=== PATIENT | male | born 1960 | race Caucasian/White ===

== ENCOUNTER → 2017-02-23 | Outpatient (CLI) | payer MEDICAID ==
[~2017-02-23] VITALS: Ht 175.3 cm; Wt 97.1 kg
[~2017-02-23] MED LIST: ADENOSINE 82 MG in GIVE UN-DILUTED 0 ML IV ONE; DIPYRIDAMOLE (5MG/ML) 10 ML VIAL IV ONE
== END | disposition home or self-care (01) ==
LOC: Rad HDHVI 09:53
PROVIDERS: ATTEND Internal Medicine Cardiovascular Disease
DX: I42.9 Cardiomyopathy, unspecified (principal); I10 Essential (primary) hypertension; Z82.49 Family history of ischemic heart disease and other diseases of the circulatory system
CPT/HCPCS: 78452; 93005; 96374; 96375; A9500; J1245

== ENCOUNTER → 2017-07-01 | Outpatient (CLI) | payer MEDICAID ==
[~2017-07-01] MED LIST changes: +ACET30TA15 PO; -ADENOSINE 82 MG in GIVE UN-DILUTED 0 ML IV ONE; +ALLO300T2 PO; +ASPI81TA27 PO; +ATEN-60 PO; +BECL80AE9 IN; -DIPYRIDAMOLE (5MG/ML) 10 ML VIAL IV ONE; +FURO40TA4 PO; +METF-370 PO; +POTA10TA51 PO; +ZOLP10TA6 PO
[2017-07-01 10:00] VITALS: BP 112/65
[2017-07-01 10:50] VITALS: BP 123/77
[2017-07-01 12:41] LABS: INR 1.04 (0.9-1.15); Partial Thromboplastin Time 25.5 sec (22.64-33.71); Prothrombin Time 11.3 sec (9.37-12.3)
[2017-07-01 12:54] LABS: Potassium 3.7 mmol/L (3.5-5.1)
[2017-07-01 13:08] LABS: Basophils # (auto) 0.1 uL; Basophils % (auto) 0.6 % (0.0-2.0); CONDITION Y; Eosinophils # (auto) 0.2 uL; Eosinophils % (auto) 1.7 % (0.0-7.0); Hematocrit 49.7 % (41.0-53.0); Hemoglobin 16.8 g/dL (13.5-17.5); Lymphocytes # (auto) 2.4 uL; Lymphocytes % (auto) 26.3 % (10.0-50.0); Mean Corpuscular Hgb Conc. 33.8 g/dL (32.0-36.0); Mean Corpuscular Volume 91.8 fL (80.0-100.0); Mean Platelet Volume 8.9 fL (7.4-10.4); Monocytes # (auto) 0.8 uL; Monocytes % (auto) 8.5 % (0.0-12.0); Neutrophils # (auto) 5.7 uL; Neutrophils % (auto) 62.9 % (37.0-80.0); Platelet Count (auto) 264 10^3/uL (140-450); Red Cell Distribution Width 14.4 % (11.6-16.0); White Blood Cell 9.1 10^3/uL (4.4-10.8)
[2017-07-01 13:11] LABS: BUN/Creatinine Ratio 10.8
== END | disposition home or self-care (01) ==
LOC: CHF HDHVI 10:14
PROVIDERS: ATTEND Internal Medicine Cardiovascular Disease
DX: Z01.818 Encounter for other preprocedural examination (principal); I10 Essential (primary) hypertension; D64.9 Anemia, unspecified; I42.9 Cardiomyopathy, unspecified; R42 Dizziness and giddiness; R79.1 Abnormal coagulation profile
CPT/HCPCS: 36415; 80048; 85025; 85610; 85730; G0463

== ENCOUNTER → 2017-07-02 | Day surgery (SDC) | payer MEDICAID ==
[~2017-07-02] VITALS: Ht 175.3 cm; Wt 98.9 kg
[~2017-07-02] MED LIST changes: +ANGIOMAX 250 MG VIAL IV ONE; +IOHEXOL 350 MG/ML 100ML IJ ONE; +LIDOCAINE 2%HCL (LOCAL ANESTH.) INJ 20ML MDV ONE; +MIDAZOLAM HCL 1MG/1ML-2 ML VIAL ONE; +SODIUM CHL 0.9% 0 ML ONE; +fentaNYL CITRATE 100 MCG/2 ML VL ONE
== END | disposition home or self-care (01) ==
LOC: CATH 12:08
PROVIDERS: ATTEND Internal Medicine Cardiovascular Disease
DX: R07.9 Chest pain, unspecified (principal); E11.9 Type 2 diabetes mellitus without complications; J44.9 Chronic obstructive pulmonary disease, unspecified
CPT/HCPCS: 93458; C1760; C1894; J1644; J3010; J7030; Q9967; 99152; 99153; J2250

== ENCOUNTER 2017-07-03 21:36 | Emergency (ER) | payer MEDICAID ==
[~2017-07-03] VITALS: Ht 175.3 cm; Wt 98.9 kg
[~2017-07-03 21:36] MED LIST changes: -ANGIOMAX 250 MG VIAL IV ONE; -IOHEXOL 350 MG/ML 100ML IJ ONE; -LIDOCAINE 2%HCL (LOCAL ANESTH.) INJ 20ML MDV ONE; -MIDAZOLAM HCL 1MG/1ML-2 ML VIAL ONE; -SODIUM CHL 0.9% 0 ML ONE; -fentaNYL CITRATE 100 MCG/2 ML VL ONE
[2017-07-03 21:52] VITALS: BP 149/95
== END 2017-07-03 22:53 | disposition home or self-care (01) ==
LOC: ER 21:36
DX: S70.11XA Contusion of right thigh, initial encounter (principal); I11.0 Hypertensive heart disease with heart failure; I50.9 Heart failure, unspecified; Z79.82 Long term (current) use of aspirin; Z79.899 Other long term (current) drug therapy; X58.XXXA Exposure to other specified factors, initial encounter; Y93.89 Activity, other specified; Y92.89 Other specified places as the place of occurrence of the external cause; Y99.8 Other external cause status

== ENCOUNTER → 2017-07-10 | Outpatient (CLI) | payer MEDICAID ==
[2017-07-10 11:00] VITALS: BP 125/84
[2017-07-10 13:45] VITALS: BP 141/94
== END | disposition home or self-care (01) ==
LOC: CHF HDHVI 11:00
PROVIDERS: ATTEND Internal Medicine Cardiovascular Disease
DX: I11.0 Hypertensive heart disease with heart failure (principal)
CPT/HCPCS: 94620; G0463

== ENCOUNTER → 2017-07-13 | Outpatient (CLI) | payer MEDICAID ==
[~2017-07-13] MED LIST changes: +ALBUTEROL SULF 2.5 MG/0.5ML(0.5%) NEB SOLN ONE
== END | disposition home or self-care (01) ==
LOC: RT 08:50
PROVIDERS: ATTEND Internal Medicine Cardiovascular Disease
DX: R06.02 Shortness of breath (principal); I11.0 Hypertensive heart disease with heart failure; I50.9 Heart failure, unspecified
CPT/HCPCS: 94060

== ENCOUNTER → 2018-05-26 | Outpatient (CLI) | payer MEDICAID ==
[~2018-05-26] MED LIST changes: -ALBUTEROL SULF 2.5 MG/0.5ML(0.5%) NEB SOLN ONE
== END | disposition home or self-care (01) ==
LOC: Rad HDHVI 10:44
PROVIDERS: ATTEND Internal Medicine
DX: I07.1 Rheumatic tricuspid insufficiency (principal); I27.20 Pulmonary hypertension, unspecified; E78.5 Hyperlipidemia, unspecified; E11.9 Type 2 diabetes mellitus without complications; I11.0 Hypertensive heart disease with heart failure; I50.9 Heart failure, unspecified
CPT/HCPCS: 93306

== ENCOUNTER → 2018-06-11 | Outpatient (CLI) | payer MEDICAID ==
[2018-06-11 08:50] VITALS: BP 144/91
[2018-06-11 10:00] VITALS: BP 135/89
== END | disposition home or self-care (01) ==
LOC: CHF HDHVI 08:41
PROVIDERS: ATTEND Internal Medicine Cardiovascular Disease
DX: I27.21 Secondary pulmonary arterial hypertension (principal); I11.0 Hypertensive heart disease with heart failure; I50.9 Heart failure, unspecified; Z79.899 Other long term (current) drug therapy
CPT/HCPCS: 93701; 94618; G0463

== ENCOUNTER → 2018-08-09 | Outpatient (CLI) | payer MEDICAID ==
[~2018-08-09] MED LIST changes: +AMIT25TA9 PO; +ANGIOMAX 250 MG VIAL IV ONE; +ATOR40TA52 PO; +BENA40TA7 PO; +IOHEXOL 350 MG/ML 100ML IJ ONE; +LIDOCAINE 2%HCL (LOCAL ANESTH.) INJ 10ml MDV ONE; +METO-158 PO; +MIDAZOLAM HCL 1MG/1ML-2 ML VIAL ONE; +SILD20TA12 OR; +SODIUM CHL 0.9% 0 ML ONE; +fentaNYL CITRATE 100 MCG/2 ML VL ONE
[2018-08-09 08:25] VITALS: BP_SYST 149; BP_SYST 154; BP_DIAS 103; BP_DIAS 90
[2018-08-09 12:38] LABS: INR 1.18 (0.9-1.15); Partial Thromboplastin Time 31.5 sec (23.78-33.04); Prothrombin Time 12.5 sec (9.27-12.13)
[2018-08-09 12:39] LABS: Potassium 4.2 mmol/L (3.5-5.1)
[2018-08-09 12:41] LABS: Basophils # (auto) 0 uL; Basophils % (auto) 0.6 % (0.0-2.0); Eosinophils # (auto) 0.2 uL; Eosinophils % (auto) 2.9 % (0.0-7.0); Lymphocytes # (auto) 1.8 uL; Mean Corpuscular Hemoglobin 32.6 pg (28.0-32.0); Mean Corpuscular Volume 95.9 fL (80.0-100.0); Monocytes # (auto) 0.6 uL; Monocytes % (auto) 8.8 % (0.0-12.0); Neutrophils # (auto) 4.3 uL; Neutrophils % (auto) 61.7 % (37.0-80.0); Nucleated Red Blood Cells % 0.6 %; Platelet Count (auto) 146 10^3/uL (140-450); Red Cell Distribution Width 14.7 % (11.8-14.3); White Blood Cell 6.9 10^3/uL (4.4-10.8)
[2018-08-09 12:42] LABS: BUN/Creatinine Ratio 16.2
== END | disposition home or self-care (01) ==
LOC: Rad HDHVI 07:59
PROVIDERS: ATTEND Internal Medicine
DX: Z01.818 Encounter for other preprocedural examination (principal); D64.9 Anemia, unspecified; R79.1 Abnormal coagulation profile; I10 Essential (primary) hypertension; E11.9 Type 2 diabetes mellitus without complications; I27.21 Secondary pulmonary arterial hypertension; I42.9 Cardiomyopathy, unspecified; R94.31 Abnormal electrocardiogram [ECG] [EKG]
CPT/HCPCS: 36415; 71046; 80048; 85025; 85610; 85730; 93005; G0463

== ENCOUNTER 2018-08-11 07:53 | Day surgery (SDC) | payer MEDICAID ==
[~2018-08-11] VITALS: Ht 175.3 cm; Wt 97.5 kg
[~2018-08-11 07:53] MED LIST changes: -ACET30TA15 PO; -ANGIOMAX 250 MG VIAL IV ONE; -ATEN-60 PO; -IOHEXOL 350 MG/ML 100ML IJ ONE; -LIDOCAINE 2%HCL (LOCAL ANESTH.) INJ 10ml MDV ONE; -MIDAZOLAM HCL 1MG/1ML-2 ML VIAL ONE; -SODIUM CHL 0.9% 0 ML ONE; -ZOLP10TA6 PO; -fentaNYL CITRATE 100 MCG/2 ML VL ONE
== END 2018-08-11 12:45 | disposition home or self-care (01) ==
LOC: CATH 07:53
PROVIDERS: ATTEND Internal Medicine
DX: I27.20 Pulmonary hypertension, unspecified (principal); J44.9 Chronic obstructive pulmonary disease, unspecified; Z87.891 Personal history of nicotine dependence; Z79.82 Long term (current) use of aspirin; Z79.899 Other long term (current) drug therapy; E78.5 Hyperlipidemia, unspecified; I10 Essential (primary) hypertension; E11.9 Type 2 diabetes mellitus without complications
CPT/HCPCS: 93460; C1760; C1769; C1894; J7030; 36600; 82805; 99152; 99153; A6257; C1751

== ENCOUNTER → 2018-08-17 | Outpatient (CLI) | payer MEDICAID | END | disposition home or self-care (01) | LOC: XY 08:19 | PROVIDERS: ATTEND Internal Medicine | DX: J98.8 Other specified respiratory disorders (principal) | CPT/HCPCS: 78582; A9540; A9558 ==

== ENCOUNTER → 2018-08-17 | Outpatient (CLI) | payer MEDICAID ==
[2018-08-17 11:25] VITALS: BP 132/85
[2018-08-17 12:40] VITALS: BP 127/87
== END | disposition home or self-care (01) ==
LOC: CHF HDHVI 11:18
PROVIDERS: ATTEND Internal Medicine
DX: I27.21 Secondary pulmonary arterial hypertension (principal)
CPT/HCPCS: 93701; 94618; G0463

== ENCOUNTER → 2018-08-31 | Outpatient (CLI) | payer MEDICAID ==
[2018-08-31 11:30] VITALS: BP 120/77
== END | disposition home or self-care (01) ==
LOC: CHF HDHVI 10:50
PROVIDERS: ATTEND Internal Medicine Cardiovascular Disease
DX: I27.21 Secondary pulmonary arterial hypertension (principal)
CPT/HCPCS: G0463

== ENCOUNTER → 2018-09-08 | Outpatient (CLI) | payer MEDICAID ==
[~2018-09-08] MED LIST changes: +SODIUM CHLORIDE 0.9% 1,000 ML IV ONE
[2018-09-08 10:12] VITALS: BP 64/50
[2018-09-08 11:43] VITALS: BP 91/56
[2018-09-08 12:38] LABS: Basophils # (auto) 0.1 uL; Basophils % (auto) 0.8 % (0.0-2.0); Eosinophils # (auto) 0.1 uL; Eosinophils % (auto) 1.9 % (0.0-7.0); Hematocrit 50.2 % (41.0-53.0); Hemoglobin 17.1 g/dL (13.5-17.5); Lymphocytes # (auto) 2.1 uL; Lymphocytes % (auto) 30.9 % (10.0-50.0); Mean Corpuscular Volume 94.2 fL (80.0-100.0); Monocytes # (auto) 0.7 uL; Monocytes % (auto) 9.9 % (0.0-12.0); Neutrophils # (auto) 3.9 uL; Neutrophils % (auto) 56.5 % (37.0-80.0); Nucleated Red Blood Cells % 0.5 %; Platelet Count (auto) 158 10^3/uL (140-450); Red Blood Cells 5.33 10^6/uL (4.5-5.90); Red Cell Distribution Width 14.6 % (11.8-14.3); White Blood Cell 6.8 10^3/uL (4.4-10.8)
[2018-09-08 12:47] LABS: BUN/Creatinine Ratio 15.5; Calcium 8.9 mg/dL (8.5-10.1); Magnesium 2.3 mg/dL (1.6-2.6); Potassium 3.8 mmol/L (3.5-5.1)
== END | disposition home or self-care (01) ==
LOC: CHF HDHVI 10:02
PROVIDERS: ATTEND Internal Medicine Cardiovascular Disease
DX: I27.21 Secondary pulmonary arterial hypertension (principal); I95.9 Hypotension, unspecified; I11.0 Hypertensive heart disease with heart failure; I50.9 Heart failure, unspecified; E11.9 Type 2 diabetes mellitus without complications; J44.9 Chronic obstructive pulmonary disease, unspecified; I42.9 Cardiomyopathy, unspecified; E78.5 Hyperlipidemia, unspecified; D64.9 Anemia, unspecified; E83.40 Disorders of magnesium metabolism, unspecified; I07.1 Rheumatic tricuspid insufficiency; Z79.82 Long term (current) use of aspirin; Z79.899 Other long term (current) drug therapy; Z87.891 Personal history of nicotine dependence
CPT/HCPCS: 36415; 80048; 82962; 83735; 85025; 96360; G0463; J7030

== ENCOUNTER → 2018-09-15 | Outpatient (CLI) | payer MEDICAID ==
[~2018-09-15] MED LIST changes: -SODIUM CHLORIDE 0.9% 1,000 ML IV ONE
[2018-09-15 11:30] VITALS: BP_SYST 123; BP_SYST 96; BP_DIAS 68; BP_DIAS 81
[2018-09-15 12:35] VITALS: BP 96/68
== END | disposition home or self-care (01) ==
LOC: CHF HDHVI 11:27
PROVIDERS: ATTEND Internal Medicine Cardiovascular Disease
DX: I27.20 Pulmonary hypertension, unspecified (principal); E11.9 Type 2 diabetes mellitus without complications
CPT/HCPCS: 82962; 93701; G0463

== ENCOUNTER → 2018-10-14 | Outpatient (CLI) | payer MEDICAID ==
[~2018-10-14] MED LIST changes: +CYANOCOBALAMIN (B-12) 1000 MCG/1 ML VIAL IM ONE; +CYANOCOBALAMIN (B-12) 1000 MCG/1 ML VIAL ONE; +FUROSEMIDE 100 MG/10ML VIAL IV ONE; +FUROSEMIDE INJECTION 10 ML ONE; +POTASSIUM CHL 10 Meq TABLET PO ONE; +POTASSIUM CHL 20 Meq TABLET PO ONE; +SODIUM CHLORIDE 0.9% 1,000 ML IV SCH
--- NOTE | 2018-10-14 12:19 | NUR ---
CHF PT TO CHF CLINIC FOR PAH REEVAL. WGHT GAIN 8 LBS, INCREASED SOB. OMN ADEMPAS 0.5 MG TID X 1 MONTH.
--- NOTE | 2018-10-14 13:05 | NUR ---
CHF Clinic Provider Clinic Provider DR. BEST, pt with new orders received and carried out. DRAW RBS. CARDIODYNAMICS, Lasix gtt started at {60}mg/hr X 1 HR, THAN DECREASE TO 30MG/HR , POTASSIUM 30MEQ PO VIT B 12 INJECTION 1000MCG IM per MD order. IV insertion IV access obtained, via clean sterile technique by inserting 22 gauge catheter at after attempt(s). IV secured properly. No trauma to site. Patient tolerated procedure well.
[2018-10-14 15:15] VITALS: BP 115/69
--- NOTE | 2018-10-14 15:15 | NUR ---
CHF IV COMPLETE 1513. IV removal IV DC'd with sterile technique, catheter fully intact. Pressure dressing applied to site. Patient tolerated procedure well. VIT B 12 1000MCG R DELTOID. Discharged with aftercare instructions per MD. NOTE:
== END | disposition home or self-care (01) ==
LOC: CHF HDHVI 12:18
PROVIDERS: ATTEND Internal Medicine Cardiovascular Disease
DX: I11.0 Hypertensive heart disease with heart failure (principal); I50.9 Heart failure, unspecified; I27.21 Secondary pulmonary arterial hypertension; J44.9 Chronic obstructive pulmonary disease, unspecified; E11.9 Type 2 diabetes mellitus without complications; I42.9 Cardiomyopathy, unspecified; Z79.82 Long term (current) use of aspirin; Z79.899 Other long term (current) drug therapy; Z87.891 Personal history of nicotine dependence
CPT/HCPCS: 82962; 93701; 96365; 96366; 96372; G0463; J1940; J3420; J7030

== ENCOUNTER → 2018-10-18 | Outpatient (CLI) | payer MEDICAID ==
[~2018-10-18] MED LIST changes: -CYANOCOBALAMIN (B-12) 1000 MCG/1 ML VIAL IM ONE; -CYANOCOBALAMIN (B-12) 1000 MCG/1 ML VIAL ONE; +KETOROLAC TROMETH 60MG/2ML VIAL IM ONE; -POTASSIUM CHL 20 Meq TABLET PO ONE; +POTASSIUM CHL 20 Meq TABLET PO SCH
--- NOTE | 2018-10-18 09:00 | NUR ---
CHF PT TO CHF CLINIC C/O FALL AT HOME 3 DAYS AGO PAIN TO R KNEE AND L FOOT 05/04. MD BEST ORDERED LASIX DRIP AT 35 ML/HR AND TORADOL 60MG IM FOR PAIN
--- NOTE | 2018-10-18 09:31 | NUR ---
CHF IV insertion IV access obtained, via clean sterile technique by inserting 22 gauge catheter at after attempt(s). IV secured properly. No trauma to site. Patient tolerated procedure well. LASIX DRIP STARTED AT 35ML/HR
[2018-10-18 09:55] VITALS: BP 101/64
[2018-10-18 10:00] VITALS: BP 100/71
[2018-10-18 10:30] VITALS: BP 108/72
[2018-10-18 11:00] VITALS: BP 111/79
[2018-10-18 11:30] VITALS: BP 128/84
--- NOTE | 2018-10-18 12:07 | NUR ---
CHF IM TORADOL 60MG R GLUTE FOR PAIN. PT TOLERATED WELL.
[2018-10-18 12:55] VITALS: BP 118/76
--- NOTE | 2018-10-18 12:55 | NUR ---
CHF IV THERAPY COMPLETE. IV removal IV DC'd with sterile technique, catheter fully intact. Pressure dressing applied to site. Patient tolerated procedure well. Discharged with aftercare instructions per MD. NOTE:
== END | disposition home or self-care (01) ==
LOC: CHF HDHVI 08:53
PROVIDERS: ATTEND Internal Medicine Cardiovascular Disease
DX: I11.0 Hypertensive heart disease with heart failure (principal); I50.22 Chronic systolic (congestive) heart failure; I25.10 Atherosclerotic heart disease of native coronary artery without angina pectoris; M25.561 Pain in right knee; M79.672 Pain in left foot; E11.9 Type 2 diabetes mellitus without complications; J44.9 Chronic obstructive pulmonary disease, unspecified; I42.9 Cardiomyopathy, unspecified; I27.21 Secondary pulmonary arterial hypertension; E78.5 Hyperlipidemia, unspecified; I07.1 Rheumatic tricuspid insufficiency; Z79.82 Long term (current) use of aspirin; Z79.899 Other long term (current) drug therapy; Z87.891 Personal history of nicotine dependence; W19.XXXA Unspecified fall, initial encounter; Y93.89 Activity, other specified; Y92.009 Unspecified place in unspecified non-institutional (private) residence as the place of occurrence of the external cause; Y99.8 Other external cause status
CPT/HCPCS: 96365; 96366; 96372; G0463; J1885; J1940

== ENCOUNTER → 2018-10-28 | Outpatient (CLI) | payer MEDICAID ==
[~2018-10-28] MED LIST changes: -FUROSEMIDE 100 MG/10ML VIAL IV ONE; -KETOROLAC TROMETH 60MG/2ML VIAL IM ONE; -POTASSIUM CHL 20 Meq TABLET PO SCH; -SODIUM CHLORIDE 0.9% 1,000 ML IV SCH
[2018-10-28 11:30] VITALS: BP 101/65
[2018-10-28 12:30] VITALS: BP 114/76
[2018-10-28 13:00] VITALS: BP 110/71
[2018-10-28 13:30] VITALS: BP 116/73
[2018-10-28 14:00] VITALS: BP 121/79
[2018-10-28 15:55] LABS: Basophils # (auto) 0 uL; Basophils % (auto) 0.7 % (0.0-2.0); Eosinophils # (auto) 0.1 uL; Eosinophils % (auto) 1.9 % (0.0-7.0); Hematocrit 47.1 % (41.0-53.0); Hemoglobin 15.4 g/dL (13.5-17.5); Lymphocytes # (auto) 1.6 uL; Lymphocytes % (auto) 24.7 % (10.0-50.0); Mean Corpuscular Hemoglobin 31.6 pg (28.0-32.0); Mean Corpuscular Hgb Conc. 32.6 g/dL (32.0-36.0); Mean Corpuscular Volume 96.8 fL (80.0-100.0); Monocytes # (auto) 0.7 uL; Monocytes % (auto) 9.9 % (0.0-12.0); Neutrophils # (auto) 4.2 uL; Neutrophils % (auto) 62.8 % (37.0-80.0); Nucleated Red Blood Cells % 0.3 %; Platelet Count (auto) 159 10^3/uL (140-450); Red Blood Cells 4.87 10^6/uL (4.5-5.90); Red Cell Distribution Width 15.7 % (11.8-14.3); White Blood Cell 6.6 10^3/uL (4.4-10.8)
[2018-10-28 16:09] LABS: Albumin 3.6 g/dL (3.4-5.0); Calcium 8.5 mg/dL (8.5-10.1); Magnesium 2.4 mg/dL (1.6-2.6); Potassium 4.3 mmol/L (3.5-5.1)
[2018-10-28 16:12] LABS: Bilirubin, Total 1.5 mg/dL (0.2-1.0); Total Protein 7.4 g/dL (6.4-8.2)
== END | disposition home or self-care (01) ==
LOC: CHF HDHVI 10:18
PROVIDERS: ATTEND Internal Medicine Cardiovascular Disease
DX: I11.0 Hypertensive heart disease with heart failure (principal); I50.23 Acute on chronic systolic (congestive) heart failure; E83.40 Disorders of magnesium metabolism, unspecified; D64.9 Anemia, unspecified
CPT/HCPCS: 36415; 80053; 83735; 83880; 85025; J1940

== ENCOUNTER → 2018-11-02 | Outpatient (CLI) | payer MEDICAID ==
[~2018-11-02] MED LIST changes: +FUROSEMIDE 100 MG/10ML VIAL IV ONE; +POTASSIUM CHL 20 Meq TABLET PO ONE; +SODIUM CHLORIDE 0.9% 1,000 ML IV SCH
--- NOTE | 2018-11-02 11:38 | NUR ---
CHF PT TO CHF CLINIC FOR MD CLEMONS DIURETIC THERAPY.
[2018-11-02 12:15] VITALS: BP 113/76
--- NOTE | 2018-11-02 12:15 | NUR ---
CHF IV insertion IV access obtained, via clean sterile technique by inserting 22 gauge catheter at after attempt(s). IV secured properly. No trauma to site. Patient tolerated procedure well. Clinic Provider Clinic Provider DR. BEST, pt with new orders received and carried out. Lasix gtt started at {30}mg/hr per MD order.
--- NOTE | 2018-11-02 12:20 | NUR ---
CHF POTASSIUM CHLORIDE 30 MEQ PO ADMINISTERED
[2018-11-02 12:50] VITALS: BP 125/79
[2018-11-02 13:15] VITALS: BP 110/78
[2018-11-02 13:45] VITALS: BP 118/79
[2018-11-02 14:15] VITALS: BP 108/79
[2018-11-02 15:20] VITALS: BP 115/82
--- NOTE | 2018-11-02 15:20 | NUR ---
CHF IV LASIX COMPLETE. IV removal IV DC'd with sterile technique, catheter fully intact. Pressure dressing applied to site. Patient tolerated procedure well. Discharged with aftercare instructions per MD. NOTE:
== END | disposition home or self-care (01) ==
LOC: CHF HDHVI 11:38
PROVIDERS: ATTEND Internal Medicine Cardiovascular Disease
DX: I11.0 Hypertensive heart disease with heart failure (principal); I50.22 Chronic systolic (congestive) heart failure; J44.9 Chronic obstructive pulmonary disease, unspecified; I25.10 Atherosclerotic heart disease of native coronary artery without angina pectoris; E83.40 Disorders of magnesium metabolism, unspecified; I27.21 Secondary pulmonary arterial hypertension; E78.5 Hyperlipidemia, unspecified; E11.9 Type 2 diabetes mellitus without complications; I42.9 Cardiomyopathy, unspecified; Z87.891 Personal history of nicotine dependence; Z79.899 Other long term (current) drug therapy; Z79.82 Long term (current) use of aspirin; Z99.81 Dependence on supplemental oxygen
CPT/HCPCS: 96365; 96366; G0463; J1940

== ENCOUNTER → 2018-11-09 | Outpatient (CLI) | payer MEDICAID ==
[~2018-11-09] MED LIST changes: -FUROSEMIDE 100 MG/10ML VIAL IV ONE; +FUROSEMIDE INJECTION 100 MG in SODIUM CHL 0.9% 100 ML IV SCH; -POTASSIUM CHL 10 Meq TABLET PO ONE; -SODIUM CHLORIDE 0.9% 1,000 ML IV SCH
--- NOTE | 2018-11-09 10:20 | NUR ---
IN TO CLINIC FOR SCHEDULED INFUSION. OXYGEN FROM HOME IN USE AT 2 LPM. NOTED TO HAVE INCREASE IN WEIGHT.
--- NOTE | 2018-11-09 10:30 | NUR ---
IV PLACED TO LEFT FOREARM 22 GAUGE BY CECIL SAPP. START LASIX GTT X 3 HOURS.
[2018-11-09 11:00] VITALS: BP 112/77
[2018-11-09 11:30] VITALS: BP 128/85
[2018-11-09 11:39] LABS: Basophils # (auto) 0.1 uL; Basophils % (auto) 0.8 % (0.0-2.0); Eosinophils # (auto) 0.1 uL; Eosinophils % (auto) 1.6 % (0.0-7.0); Hematocrit 46.2 % (41.0-53.0); Hemoglobin 15.1 g/dL (13.5-17.5); Lymphocytes # (auto) 1.2 uL; Lymphocytes % (auto) 18.4 % (10.0-50.0); Mean Corpuscular Hemoglobin 31.5 pg (28.0-32.0); Mean Corpuscular Hgb Conc. 32.8 g/dL (32.0-36.0); Monocytes # (auto) 0.5 uL; Monocytes % (auto) 8.4 % (0.0-12.0); Neutrophils # (auto) 4.6 uL; Neutrophils % (auto) 70.8 % (37.0-80.0); Platelet Count (auto) 156 10^3/uL (140-450); Red Blood Cells 4.81 10^6/uL (4.5-5.90); Red Cell Distribution Width 15.3 % (11.8-14.3); White Blood Cell 6.5 10^3/uL (4.4-10.8)
[2018-11-09 11:54] LABS: Anion Gap 5 (5-15); Blood Urea Nitrogen 20 mg/dL (7-18); Carbon Dioxide 25 mmol/L (21-32); Chloride 114 mmol/L (98-107); Glucose 83 mg/dL (74-106); Potassium 3.8 mmol/L (3.5-5.1); Sodium 144 mmol/L (136-145)
[2018-11-09 11:56] LABS: BUN/Creatinine Ratio 17.7; Calcium 8.4 mg/dL (8.5-10.1); GFR African American > 60 mL/min; GFR Non-African American > 60 mL/min
[2018-11-09 12:30] VITALS: BP 120/85
[2018-11-09 13:00] VITALS: BP 125/83
[2018-11-09 13:30] VITALS: BP 121/83
--- NOTE | 2018-11-09 14:00 | NUR ---
Discharge Instructions See e-MAR for any mediations given with this visit. Patient education given on disease process. Patient verbalized understanding. Previous labs reviewed. Patient discharged in stable condition with after care instructions and follow up appointment FOR 11/11/18 MEDICATION ADMINISTRATION LASIX DRIP AT 30 MG /HR X 3 HOURS START AT 1030/STOP AT 1355 POTASSIUM 20 MEQ PO AT 1030
[2018-11-09 14:01] VITALS: BP 120/80
== END | disposition home or self-care (01) ==
LOC: CHF HDHVI 10:26
PROVIDERS: ATTEND Internal Medicine Cardiovascular Disease
DX: I27.21 Secondary pulmonary arterial hypertension (principal); I11.0 Hypertensive heart disease with heart failure; I50.22 Chronic systolic (congestive) heart failure; D64.9 Anemia, unspecified; E55.9 Vitamin D deficiency, unspecified; I25.10 Atherosclerotic heart disease of native coronary artery without angina pectoris; I42.9 Cardiomyopathy, unspecified; J44.9 Chronic obstructive pulmonary disease, unspecified; E11.9 Type 2 diabetes mellitus without complications; E78.5 Hyperlipidemia, unspecified; Z79.82 Long term (current) use of aspirin; Z87.891 Personal history of nicotine dependence; Z79.899 Other long term (current) drug therapy; Z99.81 Dependence on supplemental oxygen
CPT/HCPCS: 36415; 80048; 82306; 83880; 85025; 93701; 96365; 96366; G0463; J1940

== ENCOUNTER → 2018-11-11 | Outpatient (CLI) | payer MEDICAID ==
[~2018-11-11] VITALS: Ht 30.5 cm; Wt 104.8 kg
[~2018-11-11] MED LIST changes: +FUROSEMIDE 100 MG/10ML VIAL IV ONE; -FUROSEMIDE INJECTION 100 MG in SODIUM CHL 0.9% 100 ML IV SCH; +SODIUM CHLORIDE 0.9% 100 ML IV SCH
--- NOTE | 2018-11-11 10:52 | NUR ---
CHF PT TO CHF CLINIC FOR MD BEST ORDERED LASIX DRIP THERAPY FOR PAH MANAGEMENT.
--- NOTE | 2018-11-11 11:04 | NUR ---
CHF Clinic Provider Clinic Provider DR. BEST pt with new orders received and carried out. Lasix gtt started at {30}mg/hr X 100MG , POTASSIUM CHLORIDE 20 MEQ PO per MD order. IV insertion IV access obtained, via clean sterile technique by inserting 22 gauge catheter at after attempt(s). IV secured properly. No trauma to site. Patient tolerated procedure well.
[2018-11-11 11:30] VITALS: BP 102/66
[2018-11-11 12:30] VITALS: BP 103/69
[2018-11-11 13:00] VITALS: BP 102/70
[2018-11-11 14:00] VITALS: BP 117/58
[2018-11-11 14:14] VITALS: BP 117/79
--- NOTE | 2018-11-11 14:30 | NUR ---
CHF IV LASIX COMPLETE AT 1425 IV removal IV DC'd with sterile technique, catheter fully intact. Pressure dressing applied to site. Patient tolerated procedure well. Discharged with aftercare instructions per MD. NOTE:
== END | disposition home or self-care (01) ==
LOC: CHF HDHVI 10:54
PROVIDERS: ATTEND Internal Medicine Cardiovascular Disease
DX: I11.0 Hypertensive heart disease with heart failure (principal); I50.22 Chronic systolic (congestive) heart failure; I25.10 Atherosclerotic heart disease of native coronary artery without angina pectoris; E11.9 Type 2 diabetes mellitus without complications; J44.9 Chronic obstructive pulmonary disease, unspecified; E78.5 Hyperlipidemia, unspecified; Z99.81 Dependence on supplemental oxygen; Z87.891 Personal history of nicotine dependence; Z79.82 Long term (current) use of aspirin
CPT/HCPCS: 96365; 96366; G0463; J1940

== ENCOUNTER → 2018-11-16 | Outpatient (CLI) | payer MEDICAID ==
[~2018-11-16] VITALS: Ht 30.5 cm; Wt 103.0 kg
[~2018-11-16] MED LIST changes: +POTASSIUM CHL 10 Meq TABLET PO ONE
--- NOTE | 2018-11-16 11:03 | NUR ---
CHF PT TO CHF CLINIC FOR PAH REEVAL AND MD BEST ORDERED LASIX DRIP
--- NOTE | 2018-11-16 11:31 | NUR ---
CHF IV insertion IV access obtained, via clean sterile technique by inserting 22 gauge catheter at after attempt(s). IV secured properly. No trauma to site. Patient tolerated procedure well. IV LASIX DRIP STARTED AT 30ML/HR.
--- NOTE | 2018-11-16 11:31 | NUR ---
CHF Clinic Provider Clinic Provider DR. BEST pt with new orders received and carried out. DRAW BMP,MG. Lasix 100MG/100ML NS started at {30}mL/hr , POTASSIUM CHLORIDE 20 MEQ PO per MD order.
[2018-11-16 12:00] VITALS: BP 120/81
[2018-11-16 12:30] VITALS: BP 118/79
[2018-11-16 13:00] VITALS: BP 127/84
--- NOTE | 2018-11-16 13:06 | NUR ---
PATSY SIMS ONGOING WITH VS WNL. AFFECT CHEERFUL AND TALKATIVE.
[2018-11-16 13:30] VITALS: BP 131/85
[2018-11-16 14:00] VITALS: BP 117/77
--- NOTE | 2018-11-16 14:45 | NUR ---
infusion completed AND TOLERATED WELL. VS WNL. Discharge Instructions See e-MAR for any mediations given with this visit. Patient education given on disease process. Patient verbalized understanding. Previous labs reviewed. Patient discharged in stable condition with after care instructions and follow up appointment FOR Thursday11/18/18 MEDICATION ADMINISTRATION LASIX GTT AT 30 MG/HR X 3 HOURS 1131 (TOTAL 90 MG) POTASSIUM CHLORIDE 20 MEQ AT 1139
[2018-11-16 14:50] VITALS: BP 112/81
[2018-11-16 16:38] LABS: Potassium 3.4 mmol/L (3.5-5.1); Sodium 142 mmol/L (136-145)
[2018-11-16 16:39] LABS: Anion Gap 7 (5-15); BUN/Creatinine Ratio 17.1; Blood Urea Nitrogen 20 mg/dL (7-18); Calcium 9.1 mg/dL (8.5-10.1); Carbon Dioxide 27 mmol/L (21-32); Chloride 108 mmol/L (98-107); GFR African American > 60 mL/min; GFR Non-African American > 60 mL/min; Glucose 91 mg/dL (74-106); Magnesium 2.6 mg/dL (1.6-2.6)
== END | disposition home or self-care (01) ==
LOC: CHF HDHVI 11:12
PROVIDERS: ATTEND Internal Medicine Cardiovascular Disease
DX: I25.10 Atherosclerotic heart disease of native coronary artery without angina pectoris (principal); I27.21 Secondary pulmonary arterial hypertension; E83.40 Disorders of magnesium metabolism, unspecified; E11.9 Type 2 diabetes mellitus without complications; I11.0 Hypertensive heart disease with heart failure; I50.22 Chronic systolic (congestive) heart failure; J44.9 Chronic obstructive pulmonary disease, unspecified; E78.5 Hyperlipidemia, unspecified; I42.9 Cardiomyopathy, unspecified; Z79.82 Long term (current) use of aspirin; Z87.891 Personal history of nicotine dependence; Z79.899 Other long term (current) drug therapy; Z99.81 Dependence on supplemental oxygen
CPT/HCPCS: 36415; 80048; 83735; 96365; 96366; G0463; J1940

== ENCOUNTER → 2018-11-18 | Outpatient (CLI) | payer MEDICAID ==
[2018-11-18] VITALS (7 sets, daily range): BP systolic 100–110; BP diastolic 62–83
--- NOTE | 2018-11-18 10:05 | NUR ---
CHF PT TO CHF CLINIC FOR MD BEST ORDERED LASIX DRIP FOR CAD, PAH MANAGEMENT
--- NOTE | 2018-11-18 10:25 | NUR ---
CHF IV insertion IV access obtained, via clean sterile technique by inserting 22 gauge catheter at after attempt(s). IV secured properly. No trauma to site. Patient tolerated procedure well. Clinic Provider Clinic Provider DR. BEST pt with new orders received and carried out. Lasix gtt started at {30}mg/hr , POTASSIUM CHLORIDE 30MEQ PO per MD order.
--- NOTE | 2018-11-18 14:05 | NUR ---
CHF LASIX COMPLETE. IV removal IV DC'd with sterile technique, catheter fully intact. Pressure dressing applied to site. Patient tolerated procedure well. Discharged with aftercare instructions per MD. FOLLOW UP 11/23/18 NOTE:
== END | disposition home or self-care (01) ==
LOC: CHF HDHVI 09:57
PROVIDERS: ATTEND Internal Medicine Cardiovascular Disease
DX: I27.21 Secondary pulmonary arterial hypertension (principal); I11.0 Hypertensive heart disease with heart failure; I50.22 Chronic systolic (congestive) heart failure; E11.9 Type 2 diabetes mellitus without complications; I25.10 Atherosclerotic heart disease of native coronary artery without angina pectoris; I42.9 Cardiomyopathy, unspecified; J44.9 Chronic obstructive pulmonary disease, unspecified; E78.5 Hyperlipidemia, unspecified; Z79.82 Long term (current) use of aspirin; Z79.899 Other long term (current) drug therapy; Z87.891 Personal history of nicotine dependence; Z99.81 Dependence on supplemental oxygen; Z79.891 Long term (current) use of opiate analgesic
CPT/HCPCS: 96365; 96366; G0463; J1940

== ENCOUNTER → 2018-11-23 | Outpatient (CLI) | payer MEDICAID ==
[2018-11-23] VITALS (8 sets, daily range): BP systolic 104–114; BP diastolic 63–80
[~2018-11-23] VITALS: Ht 33 cm; Wt 103.0 kg
[~2018-11-23] MED LIST changes: -FUROSEMIDE 100 MG/10ML VIAL IV ONE; +FUROSEMIDE INJECTION 100 MG in SODIUM CHL 0.9% 100 ML IV SCH; -SODIUM CHLORIDE 0.9% 100 ML IV SCH
[2018-11-23 12:45] LABS: Potassium 5.1 mmol/L (3.5-5.1)
--- NOTE | 2018-11-23 13:52 | NUR ---
IN TO CLINIC FOR SCHEDULED INFUSION . IV STARTED AND IV insertion IV access obtained, via clean sterile technique by inserting 22 gauge catheter at after attempt(s). IV secured properly. No trauma to site. Patient tolerated procedure well.LABS DRAWN AND SENT. IV USED FOR IV INFUSION AND SITE REMAINS BENIGN POST INFUSION. TOLERATED INFUSION WELL. VSS. SEE FREQUENT VITAL SIGNS. UP TO VOID X 4 DURING INFUSION. Discharge Instructions See e-MAR for any mediations given with this visit. Patient education given on disease process. Patient verbalized understanding. Previous labs reviewed. Patient discharged in stable condition with after care instructions and follow up appointment FOR 11/25/18 MEDICATION ADMINISTRATION LASIX 100 MG IN 100 ML AT 30ML/HR X 3 HOURS START AT 0952/STOP AT 1345 (TOTAL DOSE DELIVERED 90 MG) POTASSIUM CHL 30 MEQ PO AT 1004
== END | disposition home or self-care (01) ==
LOC: CHF HDHVI 09:40
PROVIDERS: ATTEND Internal Medicine Cardiovascular Disease
DX: I11.0 Hypertensive heart disease with heart failure (principal); I50.42 Chronic combined systolic (congestive) and diastolic (congestive) heart failure; E87.6 Hypokalemia; R94.4 Abnormal results of kidney function studies; I27.21 Secondary pulmonary arterial hypertension; J44.9 Chronic obstructive pulmonary disease, unspecified; E11.9 Type 2 diabetes mellitus without complications; E78.5 Hyperlipidemia, unspecified; Z79.82 Long term (current) use of aspirin; Z79.899 Other long term (current) drug therapy; Z87.891 Personal history of nicotine dependence; Z99.2 Dependence on renal dialysis; Z99.81 Dependence on supplemental oxygen; Z79.4 Long term (current) use of insulin
CPT/HCPCS: 36415; 82565; 82962; 84132; 84520; 96365; 96366; G0463; J1940

== ENCOUNTER → 2018-11-25 | Outpatient (CLI) | payer MEDICAID ==
[2018-11-25] VITALS (8 sets, daily range): BP systolic 100–127; BP diastolic 64–80
[~2018-11-25] MED LIST changes: +FUROSEMIDE 100 MG/10ML VIAL IV ONE; -FUROSEMIDE INJECTION 100 MG in SODIUM CHL 0.9% 100 ML IV SCH; +SODIUM CHLORIDE 0.9% 100 ML IV SCH
--- NOTE | 2018-11-25 09:37 | NUR ---
CHF PT TO CHF CLINIC FOR MD BEST ORDERED LASIX DRIP THERAPY.
--- NOTE | 2018-11-25 09:47 | NUR ---
CHF IV insertion IV access obtained, via clean sterile technique by inserting 22 gauge catheter at after attempt(s). IV secured properly. No trauma to site. Patient tolerated procedure well. IV LASIX STARTED ORDERED. PT TOLERATED WELL.
--- NOTE | 2018-11-25 10:17 | NUR ---
CHF POTASSIUM CHLORIDE 30 MEQ PO ADMINISTERED.
--- NOTE | 2018-11-25 13:45 | NUR ---
CHF IV LASIX COMPLETE 1342 IV removal IV DC'd with sterile technique, catheter fully intact. Pressure dressing applied to site. Patient tolerated procedure well. Discharged with aftercare instructions per MD. FOLLOW UP NEXT WEEK SCHEDULED. NOTE:
== END | disposition home or self-care (01) ==
LOC: CHF HDHVI 09:31
PROVIDERS: ATTEND Internal Medicine Cardiovascular Disease
DX: I11.0 Hypertensive heart disease with heart failure (principal); I25.10 Atherosclerotic heart disease of native coronary artery without angina pectoris; I50.22 Chronic systolic (congestive) heart failure; E11.9 Type 2 diabetes mellitus without complications; J44.9 Chronic obstructive pulmonary disease, unspecified; E78.5 Hyperlipidemia, unspecified; Z99.81 Dependence on supplemental oxygen; Z79.82 Long term (current) use of aspirin; Z79.891 Long term (current) use of opiate analgesic; Z79.899 Other long term (current) drug therapy; Z87.891 Personal history of nicotine dependence
CPT/HCPCS: 96365; 96366; G0463; J1940

== ENCOUNTER → 2018-11-30 | Outpatient (CLI) | payer MEDICAID ==
[2018-11-30] VITALS (8 sets, daily range): BP systolic 99–129; BP diastolic 67–91
[~2018-11-30] MED LIST changes: -FUROSEMIDE 100 MG/10ML VIAL IV ONE; +FUROSEMIDE INJECTION 100 MG in SODIUM CHL 0.9% 100 ML IV SCH; -POTASSIUM CHL 10 Meq TABLET PO ONE; -SODIUM CHLORIDE 0.9% 100 ML IV SCH
--- NOTE | 2018-11-30 09:25 | NUR ---
CHF PT TO CHF CLINIC FOR MD CLEMONS FOR IV LASIX DRIP AT 30ML/HR X 3 HR
--- NOTE | 2018-11-30 09:45 | NUR ---
REVIEWED LABS. INSTRUCTED PATIENT TO HOLD POTASSIUM TODAY AND DO NOT TAKE UNTIL AFTER THURSDAY VISIT. REPEAT BACK INSTRUCTIONS OBTAINED.
--- NOTE | 2018-11-30 09:46 | NUR ---
CHF IV insertion IV access obtained, via clean sterile technique by inserting 22 gauge catheter at after attempt(s). IV secured properly. No trauma to site. Patient tolerated procedure well.Clinic Provider Clinic Provider DR. CLEMONS pt with new orders received and carried out. Lasix gtt started at {30}mg/hr per MD order.
--- NOTE | 2018-11-30 11:30 | NUR ---
UP TO VOID NEEDED. OXYGEN AT 2 LPM WHILE IN CHAIR. DOES NOT REQUIRE OXYGEN FOR BATHROOM. TOLERATES WELL. GAIT STEADY.
--- NOTE | 2018-11-30 13:00 | NUR ---
Discharge Instructions See e-MAR for any mediations given with this visit. Patient education given on disease process. Patient verbalized understanding. Previous labs reviewed. Patient discharged in stable condition with after care instructions and follow up appointment FOR Thursday12/02/18 MEDICATION ADMINISTRATION. LASIX GTT 100 MG IN 100ML 30 MG/HR X 3 HOURS START AT 0946/STOP AT 1250 (TOTAL 90 MG)
== END | disposition home or self-care (01) ==
LOC: CHF HDHVI 09:31
PROVIDERS: ATTEND Internal Medicine Cardiovascular Disease
DX: I11.0 Hypertensive heart disease with heart failure (principal); I50.42 Chronic combined systolic (congestive) and diastolic (congestive) heart failure; I27.21 Secondary pulmonary arterial hypertension; I25.10 Atherosclerotic heart disease of native coronary artery without angina pectoris; J44.9 Chronic obstructive pulmonary disease, unspecified; E78.5 Hyperlipidemia, unspecified; E11.9 Type 2 diabetes mellitus without complications; Z79.899 Other long term (current) drug therapy; Z79.82 Long term (current) use of aspirin; Z99.81 Dependence on supplemental oxygen; Z87.891 Personal history of nicotine dependence; Z79.4 Long term (current) use of insulin; Z79.891 Long term (current) use of opiate analgesic
CPT/HCPCS: 96365; 96366; G0463; J1940

== ENCOUNTER → 2018-12-02 | Outpatient (CLI) | payer MEDICAID ==
[2018-12-02] VITALS (8 sets, daily range): BP systolic 102–138; BP diastolic 69–78
[~2018-12-02] MED LIST changes: +FUROSEMIDE 100 MG/10ML VIAL IV ONE; -FUROSEMIDE INJECTION 100 MG in SODIUM CHL 0.9% 100 ML IV SCH; +POTASSIUM CHL 10 Meq TABLET PO ONE; -POTASSIUM CHL 20 Meq TABLET PO ONE; +SODIUM CHLORIDE 0.9% 100 ML IV ONE
--- NOTE | 2018-12-02 09:00 | NUR ---
IV insertion IV access obtained by Gely SAPP, via clean sterile technique by inserting 22 gauge catheter at LFA after 2 attempt(s). IV secured properly. No trauma to site. Patient tolerated procedure well.
[2018-12-02 10:32] LABS: Potassium 3.5 mmol/L (3.5-5.1)
--- NOTE | 2018-12-02 11:40 | NUR ---
IV removal IV DC'd with sterile technique, catheter fully intact. Pressure dressing applied to site. Patient tolerated procedure well.
--- NOTE | 2018-12-02 11:50 | NUR ---
CHF CLINIC Discharge Instructions See e-MAR for any mediations given with this visit. Patient education given on disease process. Patient verbalized understanding. Previous labs reviewed. Patient discharged in stable condition with after care instructions and follow up appointment. NOTE LASIX INFUSION [id number] ADMIN BY BARB SAPP POTASSIUM PO 30 MEQ ADMIN BY BARB SAPP. ADEMPAS TITRATED TO 1.5MG, PHARMACY NOTIFIED.
== END | disposition home or self-care (01) ==
LOC: Rad HDHVI 08:14
PROVIDERS: ATTEND Internal Medicine Cardiovascular Disease
DX: I11.0 Hypertensive heart disease with heart failure (principal); I50.22 Chronic systolic (congestive) heart failure; E87.6 Hypokalemia; R94.4 Abnormal results of kidney function studies; R60.9 Edema, unspecified; J44.9 Chronic obstructive pulmonary disease, unspecified; I27.21 Secondary pulmonary arterial hypertension; I42.9 Cardiomyopathy, unspecified; I25.10 Atherosclerotic heart disease of native coronary artery without angina pectoris; E11.9 Type 2 diabetes mellitus without complications; E78.5 Hyperlipidemia, unspecified; Z79.899 Other long term (current) drug therapy; Z79.891 Long term (current) use of opiate analgesic; Z79.82 Long term (current) use of aspirin; Z99.81 Dependence on supplemental oxygen
CPT/HCPCS: 36415; 82565; 84132; 84520; 93306; 96365; 96366; G0463; J1940

== ENCOUNTER → 2018-12-07 | Outpatient (CLI) | payer MEDICAID ==
[2018-12-07 13:00] VITALS: BP 131/88
--- NOTE | 2018-12-07 13:15 | NUR ---
IV insertion IV access obtained by BRONSON SAPP, via clean sterile technique by inserting 22 gauge catheter at RFA after 1 attempt(s). IV secured properly. No trauma to site. Patient tolerated procedure well.
[2018-12-07 16:42] VITALS: BP 118/75
--- NOTE | 2018-12-07 16:42 | NUR ---
IV removal IV DC'd with sterile technique, catheter fully intact. Pressure dressing applied to site. Patient tolerated procedure well.
--- NOTE | 2018-12-07 16:45 | NUR ---
CHF CLINIC Discharge Instructions See e-MAR for any mediations given with this visit. Patient education given on disease process. Patient verbalized understanding. Previous labs reviewed. Patient discharged in stable condition with after care instructions and follow up appointment ON THURSDAY. NOTE LASIX INFUSION [phone] ADMIN BY BRAB SAPP. POTASSIUM PO ADMIN BY BARB SAPP.
[2018-12-07 16:52] VITALS: BP 118/75
== END | disposition home or self-care (01) ==
LOC: CHF HDHVI 13:37
PROVIDERS: ATTEND Internal Medicine Cardiovascular Disease
DX: I11.0 Hypertensive heart disease with heart failure (principal); I50.22 Chronic systolic (congestive) heart failure; I42.9 Cardiomyopathy, unspecified; I25.10 Atherosclerotic heart disease of native coronary artery without angina pectoris; I27.21 Secondary pulmonary arterial hypertension; E78.5 Hyperlipidemia, unspecified; E11.9 Type 2 diabetes mellitus without complications; J44.9 Chronic obstructive pulmonary disease, unspecified; Z99.81 Dependence on supplemental oxygen; Z79.899 Other long term (current) drug therapy; Z87.891 Personal history of nicotine dependence; Z79.82 Long term (current) use of aspirin
CPT/HCPCS: 96365; 96366; G0463; J1940

== ENCOUNTER → 2018-12-08 | Outpatient (CLI) | payer MEDICAID ==
[~2018-12-08] MED LIST changes: -FUROSEMIDE 100 MG/10ML VIAL IV ONE; -FUROSEMIDE INJECTION 10 ML ONE; -POTASSIUM CHL 10 Meq TABLET PO ONE; -SODIUM CHLORIDE 0.9% 100 ML IV ONE
== END | disposition home or self-care (01) ==
LOC: XY 08:48
PROVIDERS: ATTEND Internal Medicine
DX: I51.7 Cardiomegaly (principal)
CPT/HCPCS: 78582; A9540; A9558

== ENCOUNTER → 2018-12-09 | Outpatient (CLI) | payer MEDICAID ==
[~2018-12-09] MED LIST changes: +FUROSEMIDE INJECTION 10 ML ONE; +FUROSEMIDE INJECTION 100 MG in SODIUM CHL 0.9% 100 ML IV SCH; +POTASSIUM CHL 10 Meq TABLET PO ONE; +POTASSIUM CHL 20 Meq TABLET PO ONE
--- NOTE | 2018-12-09 08:40 | NUR ---
PATIENT ARRIVED IN CLINIC, 02 APPLIED 3L ALERT ORIENTED 0 DISTRESS. PLAN OF CARE DISCUSSED PT VERBALIZED UNDERSTANDING. 22 GUMELISA STARTED TO RIGHT HAND BY BARB SAPP
[2018-12-09 09:30] VITALS: BP 107/72
[2018-12-09 10:00] VITALS: BP 110/76
--- NOTE | 2018-12-09 10:00 | NUR ---
INFUSION ONGOING. TOLERATING WELL. VISITING, WITHOUT DISTRESS.
[2018-12-09 10:30] VITALS: BP 119/79
--- NOTE | 2018-12-09 12:21 | NUR ---
FINISHED THERAPY. TOLERATED WELL AFFECT CHEERFUL AND VISITING WITH STAFF. WITHOUT COMPLAINT. NO SOB. IV SITE BENIGN POST INFUSION. VS WNL. Discharge Instructions See e-MAR for any mediations given with this visit. Patient education given on disease process. Patient verbalized understanding. Previous labs reviewed. Patient discharged in stable condition with after care instructions and follow up appointment FOR 12/14/18. MEDICATION ADMINISTRATION LASIX GTT AT 30 MG/HR X 3 HOURS START AT 0900/STOP AT 1200 POTASSIUM 30 MEQ PO AT 0955
[2018-12-09 12:25] VITALS: BP 115/75
== END | disposition home or self-care (01) ==
LOC: CHF HDHVI 08:57
PROVIDERS: ATTEND Internal Medicine Cardiovascular Disease
DX: I27.21 Secondary pulmonary arterial hypertension (principal); I25.10 Atherosclerotic heart disease of native coronary artery without angina pectoris; I11.0 Hypertensive heart disease with heart failure; I50.22 Chronic systolic (congestive) heart failure; I42.9 Cardiomyopathy, unspecified; J44.9 Chronic obstructive pulmonary disease, unspecified; E78.5 Hyperlipidemia, unspecified; E11.9 Type 2 diabetes mellitus without complications; Z79.82 Long term (current) use of aspirin; Z79.899 Other long term (current) drug therapy; Z87.891 Personal history of nicotine dependence; Z99.81 Dependence on supplemental oxygen; Z79.891 Long term (current) use of opiate analgesic
CPT/HCPCS: 96365; 96366; G0463; J1940

== ENCOUNTER → 2018-12-14 | Outpatient (CLI) | payer MEDICAID ==
[2018-12-14] VITALS (7 sets, daily range): BP systolic 99–123; BP diastolic 69–89
[~2018-12-14] MED LIST changes: +FUROSEMIDE 100 MG/10ML VIAL IV ONE; -FUROSEMIDE INJECTION 100 MG in SODIUM CHL 0.9% 100 ML IV SCH; +SODIUM CHLORIDE 0.9% 100 ML IV SCH
--- NOTE | 2018-12-14 09:40 | NUR ---
IV insertion IV access obtained, via clean sterile technique by inserting 22 gauge catheter at after attempt(s). IV secured properly. No trauma to site. Patient tolerated procedure well.
--- NOTE | 2018-12-14 09:45 | NUR ---
CHF PT TO CHF CLINIC FOR LASIX DRIP VSS. ALERT ORIENTED 0 DISTRESS
--- NOTE | 2018-12-14 09:55 | NUR ---
Clinic Provider Clinic Provider DR BEST pt with new orders received and carried out. LASIX gtt started at {30MG/HR per MD order.
--- NOTE | 2018-12-14 10:30 | NUR ---
INFUSION ONGOING. TOLERATING WELL . OXYGEN IN USE AT 2 LPM
--- NOTE | 2018-12-14 12:30 | NUR ---
UP TO VOID PRN. VS WNL. OXYGEN IN USE WHILE IN CHAIR ONLY
--- NOTE | 2018-12-14 13:10 | NUR ---
INFUSION COMPLETED. TOLERATED WELL. VS WNL.
--- NOTE | 2018-12-14 13:25 | NUR ---
CHF Discharge Instructions See e-MAR for any mediations given with this visit. Patient education given on disease process. Patient verbalized understanding. Previous labs reviewed. Patient discharged in stable condition with after care instructions and follow up appointment FOR 12/16/18 MEDICATION ADMINISTRATION LASIX GTT AT 30 MG/HR X 3 HOURS TART AT 0955/STOP AT 1310 POTASSIUM 30 MEQ PO AT 1005
== END | disposition home or self-care (01) ==
LOC: CHF HDHVI 09:46
PROVIDERS: ATTEND Internal Medicine Cardiovascular Disease
DX: I11.0 Hypertensive heart disease with heart failure (principal); I50.22 Chronic systolic (congestive) heart failure; E11.9 Type 2 diabetes mellitus without complications; I25.10 Atherosclerotic heart disease of native coronary artery without angina pectoris; I42.9 Cardiomyopathy, unspecified; I27.21 Secondary pulmonary arterial hypertension; J44.9 Chronic obstructive pulmonary disease, unspecified; E78.5 Hyperlipidemia, unspecified; Z99.81 Dependence on supplemental oxygen; Z79.82 Long term (current) use of aspirin; Z79.899 Other long term (current) drug therapy; Z87.891 Personal history of nicotine dependence; Z79.891 Long term (current) use of opiate analgesic
CPT/HCPCS: 96365; 96366; G0463; J1940

== ENCOUNTER → 2018-12-16 | Outpatient (CLI) | payer MEDICAID ==
[2018-12-16] VITALS (7 sets, daily range): BP systolic 100–128; BP diastolic 60–84
[~2018-12-16] MED LIST changes: -FUROSEMIDE 100 MG/10ML VIAL IV ONE; +FUROSEMIDE INJECTION 100 MG in SODIUM CHL 0.9% 100 ML IV SCH; -SODIUM CHLORIDE 0.9% 100 ML IV SCH
--- NOTE | 2018-12-16 10:20 | NUR ---
IV insertion IV access obtained, via clean sterile technique by inserting 22 gauge catheter at after attempt(s). IV secured properly. No trauma to site. Patient tolerated procedure well.Clinic Provider Clinic Provider into see pt with new orders received and carried out. Lasix gtt started at {30}mg/hr per MD order.
--- NOTE | 2018-12-16 12:43 | NUR ---
TOLERATING INFUSION WELL . WATCHING TV. WITHOUT PAIN OR DISTRESS. OXYGEN IN USE AT 2 LPM.
--- NOTE | 2018-12-16 13:40 | NUR ---
CHF IV SITE BENIGN POST INFUSION. DISCHARGED TO SELF CARE IN NO DISTRESS OR DISCOMFORT. Discharge Instructions See e-MAR for any mediations given with this visit. Patient education given on disease process. Patient verbalized understanding. Previous labs reviewed. Patient discharged in stable condition with after care instructions and follow up appointment FOR Thursday12/21/18 MEDICATION ADMINISTRATION LASIX GTT 30MG/HR X 3 HOURS START AT 1025/STOP AT 1325 POTASSIUM 30 MEQ PO AT 1030
== END | disposition home or self-care (01) ==
LOC: CHF HDHVI 10:07
PROVIDERS: ATTEND Internal Medicine Cardiovascular Disease
DX: I27.21 Secondary pulmonary arterial hypertension (principal); I25.10 Atherosclerotic heart disease of native coronary artery without angina pectoris; I11.0 Hypertensive heart disease with heart failure; I50.42 Chronic combined systolic (congestive) and diastolic (congestive) heart failure; I42.9 Cardiomyopathy, unspecified; J44.9 Chronic obstructive pulmonary disease, unspecified; E11.9 Type 2 diabetes mellitus without complications; E78.5 Hyperlipidemia, unspecified; Z99.81 Dependence on supplemental oxygen; Z79.82 Long term (current) use of aspirin; Z79.891 Long term (current) use of opiate analgesic; Z87.891 Personal history of nicotine dependence
CPT/HCPCS: 96365; 96366; G0463; J1940

== ENCOUNTER → 2018-12-21 | Outpatient (CLI) | payer MEDICAID ==
[2018-12-21] VITALS (7 sets, daily range): BP systolic 102–119; BP diastolic 57–87
[~2018-12-21] VITALS: Ht 1 cm; Wt 0.5 kg
[~2018-12-21] MED LIST changes: -FUROSEMIDE INJECTION 100 MG in SODIUM CHL 0.9% 100 ML IV SCH
[2018-12-21] MEDS: FUROSEMIDE INJECTION 100 MG in D5W 5% 90 ML IV SCH ×2 (08:00→11:50)
--- NOTE | 2018-12-21 08:06 | NUR ---
IN TO CLINIC FOR SCHEDULED INFUSION. Clinic Provider Clinic Provider into see pt with new orders received and carried out. Lasix gtt started at {30}mg/hr per MD order. TOLERATED WITHOUT DISTRESS. REMAINED ALERT FOR DURATION OF INFUSION. VISITING WITH OTHER PATIENTS. AFFECT PLEASANT AND COOPERATIVE. IV insertion IV access obtained, via clean sterile technique by inserting 22 gauge catheter at after attempt(s). IV secured properly. No trauma to site. Patient tolerated procedure well. Discharge Instructions See e-MAR for any mediations given with this visit. Patient education given on disease process. Patient verbalized understanding. Previous labs reviewed. Patient discharged in stable condition with after care instructions and follow up appointment FOR 12/23/18 MEDICATION ADMINSTRATION LASIX GTT AT 30 MG/[place] X [address] [place] [address]/STOP AT 1144 POTASSIUM 30 MEQ PO AT 0850
[2018-12-21 11:50] LABS: Basophils # (auto) 0 uL; Basophils % (auto) 0.6 % (0.0-2.0); Eosinophils # (auto) 0.1 uL; Eosinophils % (auto) 1.9 % (0.0-7.0); Hematocrit 47.7 % (41.0-53.0); Lymphocytes # (auto) 1.4 uL; Lymphocytes % (auto) 23.6 % (10.0-50.0); Mean Corpuscular Hemoglobin 31.3 pg (28.0-32.0); Mean Corpuscular Hgb Conc. 33.6 g/dL (32.0-36.0); Mean Corpuscular Volume 93.2 fL (80.0-100.0); Monocytes # (auto) 0.5 uL; Neutrophils # (auto) 3.9 uL; Neutrophils % (auto) 64.9 % (37.0-80.0); Nucleated Red Blood Cells % 0.3 %; Platelet Count (auto) 169 10^3/uL (140-450); Red Blood Cells 5.12 10^6/uL (4.5-5.90); Red Cell Distribution Width 15.1 % (11.8-14.3); White Blood Cell 5.9 10^3/uL (4.4-10.8)
[2018-12-21 12:04] LABS: Albumin 3.7 g/dL (3.4-5.0); Calcium 8.9 mg/dL (8.5-10.1); Magnesium 2.3 mg/dL (1.6-2.6); Potassium 3.4 mmol/L (3.5-5.1)
[2018-12-21 12:07] LABS: BUN/Creatinine Ratio 11.6; Bilirubin, Total 1.3 mg/dL (0.2-1.0); Total Protein 7.4 g/dL (6.4-8.2)
== END | disposition home or self-care (01) ==
LOC: CHF HDHVI 08:11
PROVIDERS: ATTEND Internal Medicine Cardiovascular Disease
DX: I11.0 Hypertensive heart disease with heart failure (principal); I50.42 Chronic combined systolic (congestive) and diastolic (congestive) heart failure; I25.10 Atherosclerotic heart disease of native coronary artery without angina pectoris; D64.9 Anemia, unspecified; E29.1 Testicular hypofunction; I27.21 Secondary pulmonary arterial hypertension; J44.9 Chronic obstructive pulmonary disease, unspecified; I42.9 Cardiomyopathy, unspecified; E11.9 Type 2 diabetes mellitus without complications; Z79.891 Long term (current) use of opiate analgesic; Z99.81 Dependence on supplemental oxygen; Z79.82 Long term (current) use of aspirin; Z79.899 Other long term (current) drug therapy; Z87.891 Personal history of nicotine dependence; Z79.4 Long term (current) use of insulin; Z99.2 Dependence on renal dialysis
CPT/HCPCS: 36415; 80053; 83735; 84403; 85025; 93701; 96365; 96366; G0463; J1940; J7060

== ENCOUNTER → 2018-12-23 | Outpatient (CLI) | payer MEDICAID ==
[2018-12-23] VITALS (8 sets, daily range): BP systolic 106–132; BP diastolic 62–88
[~2018-12-23] MED LIST changes: +FUROSEMIDE INJECTION 100 MG in SODIUM CHL 0.9% 100 ML IV SCH
--- NOTE | 2018-12-23 08:00 | NUR ---
CHF PT TO CHF CLINIC FOR LASIX DRIP
--- NOTE | 2018-12-23 08:00 | NUR ---
IV insertion IV access obtained, via clean sterile technique by inserting 22 gauge catheter at WRIST after attempt(s). IV secured properly. No trauma to site. Patient tolerated procedure well.
--- NOTE | 2018-12-23 08:20 | NUR ---
CHF LASIX DRIP STARTED BY BARB SAPP PER MD ORDER POTASSIUM 30 MEQ PO X 1 GIVEN BY BARB SAPP PER MD ORDER
--- NOTE | 2018-12-23 11:40 | NUR ---
IV removal IV DC'd with sterile technique, catheter fully intact. Pressure dressing applied to site. Patient tolerated procedure well. Discharged with aftercare instructions per MD. NOTE:
--- NOTE | 2018-12-23 11:45 | NUR ---
Discharge Instructions See e-MAR for any mediations given with this visit. Patient education given on disease process. Patient verbalized understanding. Previous labs reviewed. Patient discharged in stable condition with after care instructions and follow up appointment. MEDICATION START TIME 0820 LASIX DRIP 30MG/HR X 3 HOUR STOP TIMER 1120 POTASSIUM 30 MEQ X 1 GIVEN AT 0820
== END | disposition home or self-care (01) ==
LOC: CHF HDHVI 08:06
PROVIDERS: ATTEND Internal Medicine Cardiovascular Disease
DX: I11.0 Hypertensive heart disease with heart failure (principal); I50.42 Chronic combined systolic (congestive) and diastolic (congestive) heart failure; J44.9 Chronic obstructive pulmonary disease, unspecified; I25.10 Atherosclerotic heart disease of native coronary artery without angina pectoris; I27.21 Secondary pulmonary arterial hypertension; E78.5 Hyperlipidemia, unspecified; E11.9 Type 2 diabetes mellitus without complications; Z79.899 Other long term (current) drug therapy; Z79.891 Long term (current) use of opiate analgesic; Z99.81 Dependence on supplemental oxygen; Z87.891 Personal history of nicotine dependence; Z79.82 Long term (current) use of aspirin; Z79.4 Long term (current) use of insulin; Z99.2 Dependence on renal dialysis
CPT/HCPCS: 96365; 96366; G0463; J1940

== ENCOUNTER → 2018-12-29 | Outpatient (CLI) | payer MEDICAID ==
[2018-12-29] VITALS (10 sets, daily range): BP systolic 101–123; BP diastolic 68–81
[~2018-12-29] MED LIST changes: +FUROSEMIDE 100 MG/10ML VIAL IV ONE; -FUROSEMIDE INJECTION 100 MG in SODIUM CHL 0.9% 100 ML IV SCH
--- NOTE | 2018-12-29 09:18 | NUR ---
CHF ARRIVED AT CHF CLINIC FOR LASIX THERAPY 0 DISTRESS . PT DID STATE HE HAS HAD SOME DIZZY SPELLS THE LAST COUPLE DAYS. STATES FEELING A LITTLE UNDER THE WEATHER. V/S OBTAINED NOTED STABLE. EKG AND LABS DONE.
--- NOTE | 2018-12-29 10:00 | NUR ---
IV insertion IV access obtained, via clean sterile technique by inserting 22 gauge catheter at after attempt(s). IV secured properly. No trauma to site. Patient tolerated procedure well.
[2018-12-29 12:18] LABS: Basophils # (auto) 0 uL; Basophils % (auto) 0.7 % (0.0-2.0); Eosinophils # (auto) 0.1 uL; Eosinophils % (auto) 1.9 % (0.0-7.0); Hematocrit 43.8 % (41.0-53.0); Hemoglobin 14.8 g/dL (13.5-17.5); Lymphocytes # (auto) 1.6 uL; Lymphocytes % (auto) 26.1 % (10.0-50.0); Mean Corpuscular Hemoglobin 31.4 pg (28.0-32.0); Mean Corpuscular Hgb Conc. 33.7 g/dL (32.0-36.0); Mean Corpuscular Volume 93.2 fL (80.0-100.0); Monocytes # (auto) 0.6 uL; Monocytes % (auto) 9.6 % (0.0-12.0); Neutrophils # (auto) 3.7 uL; Neutrophils % (auto) 61.7 % (37.0-80.0); Nucleated Red Blood Cells % 0.2 %; Platelet Count (auto) 163 10^3/uL (140-450); Red Cell Distribution Width 15.2 % (11.8-14.3)
[2018-12-29 12:29] LABS: BUN/Creatinine Ratio 15.8; Magnesium 2.6 mg/dL (1.6-2.6)
--- NOTE | 2018-12-29 13:40 | NUR ---
Discharge Instructions See e-MAR for any mediations given with this visit. Patient education given on disease process. Patient verbalized understanding. Previous labs reviewed. Patient discharged in stable condition with after care instructions and follow up appointment. MEDICATIONS START TIME 1015 LASIX DRIP 30MG/HR X 3 HR STOP TIME 1346 POTASSIUM 30 MEQ PO X 1
== END | disposition home or self-care (01) ==
LOC: CHF HDHVI 09:19
PROVIDERS: ATTEND Internal Medicine Cardiovascular Disease
DX: I11.0 Hypertensive heart disease with heart failure (principal); I50.22 Chronic systolic (congestive) heart failure; D64.9 Anemia, unspecified; E83.40 Disorders of magnesium metabolism, unspecified; I27.21 Secondary pulmonary arterial hypertension; R42 Dizziness and giddiness; I25.10 Atherosclerotic heart disease of native coronary artery without angina pectoris; E78.5 Hyperlipidemia, unspecified; J44.9 Chronic obstructive pulmonary disease, unspecified; E11.9 Type 2 diabetes mellitus without complications; Z87.891 Personal history of nicotine dependence; Z79.899 Other long term (current) drug therapy; Z79.82 Long term (current) use of aspirin; Z79.891 Long term (current) use of opiate analgesic; Z99.81 Dependence on supplemental oxygen; Z79.4 Long term (current) use of insulin
CPT/HCPCS: 36415; 80048; 83735; 85025; 93005; 96365; 96366; G0463; J1940

== ENCOUNTER → 2019-01-11 | Outpatient (CLI) | payer MEDICAID ==
[~2019-01-11] MED LIST changes: -FUROSEMIDE 100 MG/10ML VIAL IV ONE; +FUROSEMIDE INJECTION 100 MG in SODIUM CHL 0.9% 100 ML IV SCH
--- NOTE | 2019-01-11 10:00 | NUR ---
CHF PATIENT ARRIVED TO CHF CLINIC AMBULATORY, ALERT ORIENTED X4, NO SHORTNESS OF BREATH NOTED, ON OXYGEN 3 L NC, ON A MOBIL OXYGEN TANK, PRE WEIGHT ASSESSMENT TAKEN UPON ARRIVAL. PATIENT AWARE OF PLAN OF CARE
--- NOTE | 2019-01-11 10:10 | NUR ---
IV insertion IV access obtained, via clean sterile technique by inserting 22 gauge catheter at after attempt(s). IV secured properly. No trauma to site. Patient tolerated procedure well.
[2019-01-11 10:45] VITALS: BP 117/75
[2019-01-11 11:15] VITALS: BP 121/86
[2019-01-11 11:45] VITALS: BP 116/77
[2019-01-11 12:07] LABS: Basophils # (auto) 0.1 uL; Basophils % (auto) 0.8 % (0.0-2.0); Eosinophils # (auto) 0.2 uL; Eosinophils % (auto) 2.1 % (0.0-7.0); Hematocrit 47.4 % (41.0-53.0); Hemoglobin 16.1 g/dL (13.5-17.5); Lymphocytes # (auto) 1.9 uL; Lymphocytes % (auto) 23.7 % (10.0-50.0); Mean Corpuscular Hemoglobin 31.7 pg (28.0-32.0); Mean Corpuscular Volume 93.2 fL (80.0-100.0); Monocytes # (auto) 0.7 uL; Monocytes % (auto) 9.1 % (0.0-12.0); Neutrophils % (auto) 64.3 % (37.0-80.0); Nucleated Red Blood Cells % 0.2 %; Platelet Count (auto) 203 10^3/uL (140-450); Red Blood Cells 5.09 10^6/uL (4.5-5.90); Red Cell Distribution Width 15.3 % (11.8-14.3); White Blood Cell 7.8 10^3/uL (4.4-10.8)
[2019-01-11 12:14] LABS: Albumin 3.8 g/dL (3.4-5.0); Calcium 8.9 mg/dL (8.5-10.1); Magnesium 2.6 mg/dL (1.6-2.6); Potassium 3.9 mmol/L (3.5-5.1)
[2019-01-11 12:18] LABS: BUN/Creatinine Ratio 14.6; Bilirubin, Total 1.2 mg/dL (0.2-1.0); Total Protein 7.8 g/dL (6.4-8.2)
--- NOTE | 2019-01-11 13:38 | NUR ---
IV removal IV DC'd with sterile technique, catheter fully intact. Pressure dressing applied to site. Patient tolerated procedure well. Discharged with aftercare instructions per MD. NOTE:
--- NOTE | 2019-01-11 13:46 | NUR ---
[facility] PATIENT IS CALLING HIS FAMILY TO GET PICKED UP AND GO HOME.
[2019-01-11 14:02] VITALS: BP 119/77
--- NOTE | 2019-01-11 14:05 | NUR ---
Discharge Instructions See e-MAR for any mediations given with this visit. Patient education given on disease process. Patient verbalized understanding. Previous labs reviewed. Patient discharged in stable condition with after care instructions and follow up appointment. LASIX DRIP START TIME 1030 LASIX DRIP STOP TIME 1336 1030 POTASSIUM 30 MEQ PO
== END | disposition home or self-care (01) ==
LOC: CHF HDHVI 09:59
PROVIDERS: ATTEND Internal Medicine
DX: I11.0 Hypertensive heart disease with heart failure (principal); I50.42 Chronic combined systolic (congestive) and diastolic (congestive) heart failure; E55.9 Vitamin D deficiency, unspecified; D64.9 Anemia, unspecified; I25.10 Atherosclerotic heart disease of native coronary artery without angina pectoris; I27.21 Secondary pulmonary arterial hypertension; E11.9 Type 2 diabetes mellitus without complications; J44.9 Chronic obstructive pulmonary disease, unspecified; E78.5 Hyperlipidemia, unspecified; Z79.4 Long term (current) use of insulin; Z79.899 Other long term (current) drug therapy; Z87.891 Personal history of nicotine dependence; Z99.81 Dependence on supplemental oxygen; Z79.82 Long term (current) use of aspirin; Z99.2 Dependence on renal dialysis; Z79.891 Long term (current) use of opiate analgesic
CPT/HCPCS: 36415; 80053; 82306; 83735; 85025; 96365; 96366; G0463; J1940

== ENCOUNTER → 2019-01-13 | Outpatient (CLI) | payer MEDICAID ==
[~2019-01-13] MED LIST changes: -POTASSIUM CHL 20 Meq TABLET PO ONE
--- NOTE | 2019-01-13 11:35 | NUR ---
CHF PT ARRIVED AT CHF CLINIC A/O X 4. O DISTRESS AMBULATING HAS OWN O2 AT 4 L. V/S OBTAINED
--- NOTE | 2019-01-13 11:45 | NUR ---
IV insertion IV access obtained, via clean sterile technique by inserting 22 gauge catheter at after attempt(s). IV secured properly. No trauma to site. Patient tolerated procedure well.
[2019-01-13 12:00] VITALS: BP 116/78
[2019-01-13 13:00] VITALS: BP 112/73
[2019-01-13 13:30] VITALS: BP 116/73
[2019-01-13 14:00] VITALS: BP 116/80
--- NOTE | 2019-01-13 15:00 | NUR ---
IV removal IV DC'd with sterile technique, catheter fully intact. Pressure dressing applied to site. Patient tolerated procedure well. Discharged with aftercare instructions per MD. NOTE:
[2019-01-13 15:11] VITALS: BP 111/77
--- NOTE | 2019-01-13 15:11 | NUR ---
Discharge Instructions See e-MAR for any mediations given with this visit. Patient education given on disease process. Patient verbalized understanding. Previous labs reviewed. Patient discharged in stable condition with after care instructions and follow up appointment. MEDICATIONS START TIME LASIX 30MG/HR X 3 HR 1201 STOP TIME LASIX 1500 1201 POTASSIUM 30 MEQ PO X 1
== END | disposition home or self-care (01) ==
LOC: CHF HDHVI 12:00
PROVIDERS: ATTEND Internal Medicine
DX: I11.0 Hypertensive heart disease with heart failure (principal); I50.42 Chronic combined systolic (congestive) and diastolic (congestive) heart failure; I25.10 Atherosclerotic heart disease of native coronary artery without angina pectoris; J44.9 Chronic obstructive pulmonary disease, unspecified; I27.21 Secondary pulmonary arterial hypertension; E11.9 Type 2 diabetes mellitus without complications; E78.5 Hyperlipidemia, unspecified; Z99.2 Dependence on renal dialysis; Z79.4 Long term (current) use of insulin; Z79.899 Other long term (current) drug therapy; Z87.891 Personal history of nicotine dependence; Z79.82 Long term (current) use of aspirin; Z79.891 Long term (current) use of opiate analgesic; Z99.81 Dependence on supplemental oxygen
CPT/HCPCS: 96365; 96366; G0463; J1940

== ENCOUNTER → 2019-01-18 | Outpatient (CLI) | payer MEDICAID ==
[~2019-01-18] VITALS: Ht 30.5 cm; Wt 102.1 kg
[2019-01-18] VITALS (8 sets, daily range): BP systolic 93–108; BP diastolic 59–78
[~2019-01-18] MED LIST changes: +POTASSIUM CHL 20 Meq TABLET PO ONE
--- NOTE | 2019-01-18 08:35 | NUR ---
CHF PT ARRIVED TO CHF CLINIC FOR TREATMENT A/O X3 0 DISTRESS. VITAL SIGNS OBTAINED
--- NOTE | 2019-01-18 09:38 | NUR ---
IV insertion IV access obtained, via clean sterile technique by inserting 22 gauge catheter at after attempt(s). IV secured properly. No trauma to site. Patient tolerated procedure well.
--- NOTE | 2019-01-18 12:25 | NUR ---
IV removal IV DC'd with sterile technique, catheter fully intact. Pressure dressing applied to site. Patient tolerated procedure well. Discharged with aftercare instructions per MD. NOTE:
--- NOTE | 2019-01-18 12:30 | NUR ---
Discharge Instructions See e-MAR for any mediations given with this visit. Patient education given on disease process. Patient verbalized understanding. Previous labs reviewed. Patient discharged in stable condition with after care instructions and follow up appointment. MEDICATIONS 0904 START TIME LASIX DRIP 1210 STOP TIME LASIX DRIP 1012 POTASSIUM 30 MEQ PO X 1
== END | disposition home or self-care (01) ==
LOC: CHF HDHVI 08:41
PROVIDERS: ATTEND Internal Medicine
DX: I11.0 Hypertensive heart disease with heart failure (principal); I50.42 Chronic combined systolic (congestive) and diastolic (congestive) heart failure; E11.9 Type 2 diabetes mellitus without complications; I27.21 Secondary pulmonary arterial hypertension; I25.10 Atherosclerotic heart disease of native coronary artery without angina pectoris; E78.5 Hyperlipidemia, unspecified; Z99.81 Dependence on supplemental oxygen; Z79.4 Long term (current) use of insulin; Z79.82 Long term (current) use of aspirin; Z79.899 Other long term (current) drug therapy; Z87.891 Personal history of nicotine dependence; Z99.2 Dependence on renal dialysis
CPT/HCPCS: 96365; 96366; G0463; J1940

== ENCOUNTER → 2019-01-20 | Outpatient (CLI) | payer MEDICAID ==
[2019-01-20] VITALS (8 sets, daily range): BP systolic 98–117; BP diastolic 64–78
[2019-01-20 12:25] LABS: Potassium 4.1 mmol/L (3.5-5.1)
--- NOTE | 2019-01-20 13:02 | NUR ---
CHF IV insertion IV access obtained, via clean sterile technique by inserting 22 gauge catheter at RIGHT HAND after 1 attempt BY SENAIT HOBSON. IV secured properly. No trauma to site. Patient tolerated procedure well. Clinic Provider Clinic Provider into see pt with new orders received and carried out. Lasix gtt started at 30 mg/hr per MD order. IV removal IV DC'd with sterile technique, catheter fully intact. Pressure dressing applied to site. Patient tolerated procedure well. Discharged with aftercare instructions per MD. Discharge Instructions See e-MAR for any mediations given with this visit. Patient education given on disease process. Patient verbalized understanding. Previous labs reviewed. Patient discharged in stable condition with after care instructions and follow up appointment. MEDICATION ADMINISTRATION LASIX GTT 30 ML/HOUR X 3 HOURS START 0922/STOP 1255 (TOTAL 90 MG LASIX) AT 30 MG/HOUR. K DUR 30 MEQ PO
== END | disposition home or self-care (01) ==
LOC: CHF HDHVI 08:52
PROVIDERS: ATTEND Internal Medicine
DX: I11.0 Hypertensive heart disease with heart failure (principal); I50.42 Chronic combined systolic (congestive) and diastolic (congestive) heart failure; E87.6 Hypokalemia; R94.4 Abnormal results of kidney function studies; E11.9 Type 2 diabetes mellitus without complications; I25.10 Atherosclerotic heart disease of native coronary artery without angina pectoris; I27.21 Secondary pulmonary arterial hypertension; J44.9 Chronic obstructive pulmonary disease, unspecified; E78.5 Hyperlipidemia, unspecified; Z79.4 Long term (current) use of insulin; Z79.82 Long term (current) use of aspirin; Z79.899 Other long term (current) drug therapy; Z99.81 Dependence on supplemental oxygen; Z99.2 Dependence on renal dialysis; Z87.891 Personal history of nicotine dependence
CPT/HCPCS: 36415; 82565; 83036; 83880; 84132; 84520; 96365; 96366; G0463; J1940

== ENCOUNTER → 2019-01-25 | Outpatient (CLI) | payer MEDICAID ==
[~2019-01-25] MED LIST changes: +FUROSEMIDE 100 MG/10ML VIAL IV ONE; -FUROSEMIDE INJECTION 100 MG in SODIUM CHL 0.9% 100 ML IV SCH; -POTASSIUM CHL 20 Meq TABLET PO ONE; +SODIUM CHLORIDE 0.9% 100 ML IV ONE
[2019-01-25 09:00] VITALS: BP 122/80
--- NOTE | 2019-01-25 09:00 | NUR ---
IV insertion IV access obtained by Gely SAPP, via clean sterile technique by inserting 22 gauge catheter at after 1 attempt(s). IV secured properly. No trauma to site. Patient tolerated procedure well.
[2019-01-25 09:30] VITALS: BP 107/70
--- NOTE | 2019-01-25 10:00 | NUR ---
CARDIODYNAMICS PERFORMED BY VEGA GUILLAUME AND RESULTS REVIEWED WITH PATIENT BY ORTIZ SAPP.
--- NOTE | 2019-01-25 10:24 | NUR ---
PATIENT INFORMED STAFF FOR THE FIRST TIME THAT HE IS TAKING UPTRAVI 400MCG BID THAT WAS STARTED BY [facility] UPON DISCHARGE, PATIENT IS TITRATING UP TO 800MCG BID ON THURSDAY DIRECTED BY SENIOR INFORMATION SECURITY ANALYST. PATIENT HAS APPT TODAY AND WILL ASK SENIOR INFORMATION SECURITY ANALYST TO CALL OFFICE TO UPDATE ON PLAN OF CARE.
[2019-01-25 10:30] VITALS: BP 108/70
[2019-01-25 11:30] VITALS: BP 108/75
[2019-01-25 11:55] VITALS: BP 109/77
--- NOTE | 2019-01-25 11:55 | NUR ---
CHF CLINIC Discharge Instructions See e-MAR for any mediations given with this visit. Patient education given on disease process. Patient verbalized understanding. Previous labs reviewed. Patient discharged in stable condition with after care instructions and follow up appointment ON THURSDAY. NOTE LASIX [id number] ADMIN BY BARB SAPP. POTASSIUM PO ADMIN BY BARB SAPP.
[2019-01-25 13:04] LABS: Magnesium 2.7 mg/dL (1.6-2.6)
== END | disposition home or self-care (01) ==
LOC: CHF HDHVI 09:00
PROVIDERS: ATTEND Internal Medicine
DX: I11.0 Hypertensive heart disease with heart failure (principal); I50.42 Chronic combined systolic (congestive) and diastolic (congestive) heart failure; E83.40 Disorders of magnesium metabolism, unspecified; I27.21 Secondary pulmonary arterial hypertension; E11.9 Type 2 diabetes mellitus without complications; I25.10 Atherosclerotic heart disease of native coronary artery without angina pectoris; E78.5 Hyperlipidemia, unspecified; J44.9 Chronic obstructive pulmonary disease, unspecified; Z99.81 Dependence on supplemental oxygen; Z99.2 Dependence on renal dialysis; Z79.899 Other long term (current) drug therapy; Z79.4 Long term (current) use of insulin; Z79.82 Long term (current) use of aspirin; Z87.891 Personal history of nicotine dependence; Z79.891 Long term (current) use of opiate analgesic
CPT/HCPCS: 36415; 80048; 83735; 93701; 96365; 96366; G0463; J1940

== ENCOUNTER → 2019-01-27 | Outpatient (CLI) | payer MEDICAID ==
[~2019-01-27] VITALS: Ht 165.1 cm; Wt 105.9 kg
[2019-01-27 08:30] VITALS: BP 116/77
--- NOTE | 2019-01-27 08:30 | NUR ---
IN TO CLINIC FOR SCHEDULED INFUSION.
[2019-01-27 09:30] VITALS: BP 98/66
[2019-01-27 10:30] VITALS: BP 99/69
[2019-01-27 11:00] VITALS: BP 108/71
--- NOTE | 2019-01-27 12:10 | NUR ---
IV removal IV DC'd with sterile technique, catheter fully intact. Pressure dressing applied to site. Patient tolerated procedure well.
[2019-01-27 12:15] VITALS: BP 105/74
--- NOTE | 2019-01-27 12:15 | NUR ---
CHF CLINIC Discharge Instructions See e-MAR for any mediations given with this visit. Patient education given on disease process. Patient verbalized understanding. Previous labs reviewed. Patient discharged in stable condition with after care instructions and follow up appointment. NOTE LASIX INFUSION [id number] ADMIN BY BARB SAPP POTASSIUM PO ADMIN BY BARB SAPP
== END | disposition home or self-care (01) ==
LOC: CHF HDHVI 08:38
PROVIDERS: ATTEND Internal Medicine
DX: I11.0 Hypertensive heart disease with heart failure (principal); I50.42 Chronic combined systolic (congestive) and diastolic (congestive) heart failure; I27.21 Secondary pulmonary arterial hypertension; I25.10 Atherosclerotic heart disease of native coronary artery without angina pectoris; J44.9 Chronic obstructive pulmonary disease, unspecified; E11.9 Type 2 diabetes mellitus without complications; E78.5 Hyperlipidemia, unspecified; E87.70 Fluid overload, unspecified; Z99.2 Dependence on renal dialysis; Z99.81 Dependence on supplemental oxygen; Z79.4 Long term (current) use of insulin; Z79.82 Long term (current) use of aspirin; Z79.891 Long term (current) use of opiate analgesic; Z87.891 Personal history of nicotine dependence; Z79.899 Other long term (current) drug therapy
CPT/HCPCS: 96365; 96366; G0463; J1940

== ENCOUNTER → 2019-02-01 | Outpatient (CLI) | payer MEDICAID ==
[~2019-02-01] MED LIST changes: +KETOROLAC TROMETH 60MG/2ML VIAL IM ONE
--- NOTE | 2019-02-01 09:30 | NUR ---
IN FOR SCHEDULED INFUSION.
[2019-02-01 10:10] VITALS: BP_SYST 106; BP_SYST 107; BP_DIAS 68; BP_DIAS 70
[2019-02-01 11:30] VITALS: BP 109/74
[2019-02-01 12:00] VITALS: BP 101/60
--- NOTE | 2019-02-01 12:00 | NUR ---
CHF TOOK FIRST DOSE OPSUMMIT 10 MG NOW. CONTINUING ON ADEMPAS 2MG PO TID AND UPTRAVI 600 MG PO BID. RECIEVED IV LASIX X 90 MG TOTAL. IV PLACED TO LEFT AC. SITE BENIGN POST INFUSION. UP TO VOID MULTIPLE TIMES. BP TOLERATED INFUSION WELL. PT C/ JOINT PAIN AND PAIN TO BACK AND HEAD AT 5/10. MEDICATED PER ORDER WITH RELIEF TO 1/10 AFTER 60 MINUTES. VERIFIED MEDICATIONS WITH PATIENT. APPROPRIATE INFORMATION OBTAINED FROM PATIENT REGARDING HOME MEDS. SENT TO SEE DR KACI HAGAN . MEDICATION ADMINISTRATION LASIX GTT AT 40 MG/HR START AT 0940/STOP AT 1155 (TOTAL 90 MG ) POTASSIUM 30 MEQ PO AT 0940 TORADOL 60 MG IM TO RIGHT GLUT AT 1010
--- NOTE | 2019-02-02 16:41 | NUR ---
SPOKE WITH MIRIAM ELLISON [phone] FROM [facility] REGARDING PLAN TO INCREASE UPTRAVI TO 1000 MG PO BID ON THURSDAY. WILL DEFER INCREASE FOR NOW DUE TO CLINIC PRESENTATION OF HYPOTENSION AND DIZZINESS.
== END | disposition home or self-care (01) ==
LOC: CHF HDHVI 09:26
PROVIDERS: ATTEND Internal Medicine
DX: I11.0 Hypertensive heart disease with heart failure (principal); I50.42 Chronic combined systolic (congestive) and diastolic (congestive) heart failure; J44.9 Chronic obstructive pulmonary disease, unspecified; I25.10 Atherosclerotic heart disease of native coronary artery without angina pectoris; E78.5 Hyperlipidemia, unspecified; I27.21 Secondary pulmonary arterial hypertension; Z79.899 Other long term (current) drug therapy; Z79.82 Long term (current) use of aspirin; Z87.891 Personal history of nicotine dependence; Z99.81 Dependence on supplemental oxygen; Z79.4 Long term (current) use of insulin; Z99.2 Dependence on renal dialysis; Z79.891 Long term (current) use of opiate analgesic
CPT/HCPCS: 96365; 96366; 96372; G0463; J1885; J1940

== ENCOUNTER → 2019-02-08 | Outpatient (CLI) | payer MEDICAID ==
[~2019-02-08] MED LIST changes: +CYANOCOBALAMIN (B-12) 1000 MCG/1 ML VIAL IM ONE; +CYANOCOBALAMIN (B-12) 1000 MCG/1 ML VIAL ONE; -FUROSEMIDE 100 MG/10ML VIAL IV ONE; +FUROSEMIDE INJECTION 100 MG in SODIUM CHL 0.9% 100 ML IV SCH; +POTASSIUM CHL 20 Meq TABLET PO ONE; -SODIUM CHLORIDE 0.9% 100 ML IV ONE
--- NOTE | 2019-02-08 08:37 | NUR ---
IV insertion IV access obtained, via clean sterile technique by inserting 22 gauge catheter at LFA after 1 attempt(s). IV secured properly. No trauma to site. Patient tolerated procedure well.
--- NOTE | 2019-02-08 08:37 | NUR ---
Clinic Provider Clinic Provider into see pt with new orders received and carried out. Lasix gtt started at {30}mg/hr per MD order.
--- NOTE | 2019-02-08 09:37 | NUR ---
CHF PT ARRIVED AT THE CHF CLINIC ALERT AND ORIENTED V/S OBTAINED 0 DISTRESS
--- NOTE | 2019-02-08 10:45 | NUR ---
BP PT BP LOW AFTER CHECKING 2 X . UPDATED ORDERS RECEIVED AND NOTE. 250 NS BOLUS STARTED
[2019-02-08 11:30] VITALS: BP 99/63
[2019-02-08 11:53] LABS: Basophils # (auto) 0 uL; Basophils % (auto) 0.5 % (0.0-2.0); Eosinophils # (auto) 0.1 uL; Eosinophils % (auto) 1.8 % (0.0-7.0); Hematocrit 45.8 % (41.0-53.0); Hemoglobin 15.6 g/dL (13.5-17.5); Lymphocytes # (auto) 1.1 uL; Lymphocytes % (auto) 13.6 % (10.0-50.0); Mean Corpuscular Hemoglobin 31.7 pg (28.0-32.0); Mean Corpuscular Hgb Conc. 33.9 g/dL (32.0-36.0); Mean Corpuscular Volume 93.4 fL (80.0-100.0); Monocytes # (auto) 0.7 uL; Monocytes % (auto) 8.9 % (0.0-12.0); Neutrophils # (auto) 6.1 uL; Neutrophils % (auto) 75.2 % (37.0-80.0); Nucleated Red Blood Cells % 0.3 %; Platelet Count (auto) 180 10^3/uL (140-450); Red Blood Cells 4.91 10^6/uL (4.5-5.90); Red Cell Distribution Width 15.4 % (11.8-14.3); White Blood Cell 8.1 10^3/uL (4.4-10.8)
[2019-02-08 12:03] LABS: Calcium 8.8 mg/dL (8.5-10.1)
[2019-02-08 12:06] LABS: BUN/Creatinine Ratio 13.7
== END | disposition home or self-care (01) ==
LOC: CHF HDHVI 08:23
PROVIDERS: ATTEND Internal Medicine
DX: I11.0 Hypertensive heart disease with heart failure (principal); I50.42 Chronic combined systolic (congestive) and diastolic (congestive) heart failure; I27.21 Secondary pulmonary arterial hypertension; D64.9 Anemia, unspecified; E11.9 Type 2 diabetes mellitus without complications; I25.10 Atherosclerotic heart disease of native coronary artery without angina pectoris; I42.9 Cardiomyopathy, unspecified; J44.9 Chronic obstructive pulmonary disease, unspecified; E78.5 Hyperlipidemia, unspecified; Z99.81 Dependence on supplemental oxygen; Z79.82 Long term (current) use of aspirin; Z79.4 Long term (current) use of insulin; Z79.891 Long term (current) use of opiate analgesic; Z79.899 Other long term (current) drug therapy; Z87.891 Personal history of nicotine dependence
CPT/HCPCS: 36415; 80048; 85025; 96365; 96366; 96372; G0463; J1885; J1940; J3420

== ENCOUNTER → 2019-02-15 | Outpatient (CLI) | payer MEDICAID ==
[2019-02-15] VITALS (7 sets, daily range): BP systolic 108–123; BP diastolic 68–77
[~2019-02-15] MED LIST changes: -CYANOCOBALAMIN (B-12) 1000 MCG/1 ML VIAL IM ONE; -CYANOCOBALAMIN (B-12) 1000 MCG/1 ML VIAL ONE; +FUROSEMIDE 100 MG/10ML VIAL IV ONE; -FUROSEMIDE INJECTION 100 MG in SODIUM CHL 0.9% 100 ML IV SCH; -POTASSIUM CHL 20 Meq TABLET PO ONE; +SODIUM CHLORIDE 0.9% 100 ML IV SCH
--- NOTE | 2019-02-15 08:30 | NUR ---
CHF PT ARRIVED TO CHF CLINIC ALERT ORIENTED IN 0 DISTRESS NO PAIN. UPDATED ON PLAN OF CARE PT VERBALIZED UNDERSTANDING
--- NOTE | 2019-02-15 08:45 | NUR ---
Clinic Provider Clinic Provider UPDATED new orders received and carried out. Lasix gtt started at {30}mg/hr per MD order.
--- NOTE | 2019-02-15 08:45 | NUR ---
IV insertion IV access obtained, via clean sterile technique by inserting 22 gauge catheter at after attempt(s). IV secured properly. No trauma to site. Patient tolerated procedure well.
--- NOTE | 2019-02-15 12:25 | NUR ---
IV removal IV DC'd with sterile technique, catheter fully intact. Pressure dressing applied to site. Patient tolerated procedure well. Discharged with aftercare instructions per MD. NOTE:
--- NOTE | 2019-02-15 12:37 | NUR ---
Discharge Instructions See e-MAR for any mediations given with this visit. Patient education given on disease process. Patient verbalized understanding. Previous labs reviewed. Patient discharged in stable condition with after care instructions and follow up appointment. MEDICATIONS 0907 START TIME LASIX DRIP 30MG/HR X 3 1220 STOP TIME LASIX DRIP 0910 POTASSIUM 30 MEQ PO X 1 1225 TORADOL 60 MG IM X 1 RIGHT DELTOID
== END | disposition home or self-care (01) ==
LOC: CHF HDHVI 08:30
PROVIDERS: ATTEND Internal Medicine
DX: I11.0 Hypertensive heart disease with heart failure (principal); I27.21 Secondary pulmonary arterial hypertension; I25.10 Atherosclerotic heart disease of native coronary artery without angina pectoris; I50.42 Chronic combined systolic (congestive) and diastolic (congestive) heart failure; J44.9 Chronic obstructive pulmonary disease, unspecified; E78.5 Hyperlipidemia, unspecified; E78.00 Pure hypercholesterolemia, unspecified; E11.9 Type 2 diabetes mellitus without complications; Z79.899 Other long term (current) drug therapy; Z99.2 Dependence on renal dialysis; Z99.81 Dependence on supplemental oxygen; Z79.82 Long term (current) use of aspirin; Z79.4 Long term (current) use of insulin; Z79.891 Long term (current) use of opiate analgesic; Z87.891 Personal history of nicotine dependence
CPT/HCPCS: 93701; 96365; 96366; 96372; G0463; J1885; J1940

== ENCOUNTER → 2019-02-17 | Outpatient (CLI) | payer MEDICAID ==
[2019-02-17] VITALS (8 sets, daily range): BP systolic 99–106; BP diastolic 56–70
[~2019-02-17] VITALS: Ht 30.5 cm; Wt 104.3 kg
[~2019-02-17] MED LIST changes: -KETOROLAC TROMETH 60MG/2ML VIAL IM ONE; +SODIUM CHLORIDE 0.9% 100 ML IV ONE; -SODIUM CHLORIDE 0.9% 100 ML IV SCH
--- NOTE | 2019-02-17 08:15 | NUR ---
IV insertion IV access obtained, via clean sterile technique by inserting 22 gauge catheter at LFA after 1 attempt(s). IV secured properly. No trauma to site. Patient tolerated procedure well.
[2019-02-17 12:12] LABS: Basophils # (auto) 0 uL; Basophils % (auto) 0.6 % (0.0-2.0); Eosinophils # (auto) 0.1 uL; Eosinophils % (auto) 1.1 % (0.0-7.0); Hematocrit 44.1 % (41.0-53.0); Hemoglobin 14.8 g/dL (13.5-17.5); Lymphocytes # (auto) 0.9 uL; Lymphocytes % (auto) 15.1 % (10.0-50.0); Mean Corpuscular Hemoglobin 31.4 pg (28.0-32.0); Mean Corpuscular Hgb Conc. 33.6 g/dL (32.0-36.0); Mean Corpuscular Volume 93.5 fL (80.0-100.0); Monocytes # (auto) 0.5 uL; Monocytes % (auto) 8.3 % (0.0-12.0); Neutrophils # (auto) 4.4 uL; Neutrophils % (auto) 74.9 % (37.0-80.0); Nucleated Red Blood Cells % 0.3 %; Platelet Count (auto) 184 10^3/uL (140-450); Red Blood Cells 4.71 10^6/uL (4.5-5.90); Red Cell Distribution Width 15.6 % (11.8-14.3); White Blood Cell 5.9 10^3/uL (4.4-10.8)
--- NOTE | 2019-02-17 12:20 | NUR ---
IV removal IV DC'd with sterile technique, catheter fully intact. Pressure dressing applied to site. Patient tolerated procedure well.
--- NOTE | 2019-02-17 12:30 | NUR ---
CHF CLINIC Discharge Instructions See e-MAR for any mediations given with this visit. Patient education given on disease process. Patient verbalized understanding. Previous labs reviewed. Patient discharged in stable condition with after care instructions and follow up appointment. NOTE LASIX IV [phone] ADMIN BY ORTIZ SAPP. POTASSIUM PO ADMIN BY ORTIZ SAPP.
[2019-02-17 13:09] LABS: BUN/Creatinine Ratio 20.3; Calcium 9.3 mg/dL (8.5-10.1); Magnesium 2.7 mg/dL (1.6-2.6); Potassium 4.1 mmol/L (3.5-5.1)
== END | disposition home or self-care (01) ==
LOC: CHF HDHVI 08:18
PROVIDERS: ATTEND Internal Medicine Cardiovascular Disease
DX: I11.0 Hypertensive heart disease with heart failure (principal); I50.42 Chronic combined systolic (congestive) and diastolic (congestive) heart failure; E83.40 Disorders of magnesium metabolism, unspecified; D64.9 Anemia, unspecified; I25.10 Atherosclerotic heart disease of native coronary artery without angina pectoris; J44.9 Chronic obstructive pulmonary disease, unspecified; E78.5 Hyperlipidemia, unspecified; I27.21 Secondary pulmonary arterial hypertension; E11.9 Type 2 diabetes mellitus without complications; Z99.81 Dependence on supplemental oxygen; Z79.82 Long term (current) use of aspirin; Z79.4 Long term (current) use of insulin; Z79.891 Long term (current) use of opiate analgesic; Z99.2 Dependence on renal dialysis
CPT/HCPCS: 36415; 80048; 82306; 83735; 85025; 96365; 96366; G0463; J1940

== ENCOUNTER → 2019-02-22 | Outpatient (CLI) | payer MEDICAID ==
[2019-02-22] VITALS (7 sets, daily range): BP systolic 101–121; BP diastolic 66–80
[~2019-02-22] MED LIST changes: +POTASSIUM CHL 20 Meq TABLET PO ONE
--- NOTE | 2019-02-22 08:48 | NUR ---
CHF PT ALERT AND ORIENTED. ARRIVED AT CHF CLINIC FOR SCHEDULED DIURETIC THERAPY. V/S OBTAINED 0 DISTRESS
--- NOTE | 2019-02-22 08:48 | NUR ---
CHF PT ARRIVED AT THE CHF CLINIC FOR DIURETIC THERAPY TODAY. V/S OBTAINED. PT ALERT AND ORIENTED, 0 DISTRESS. Addendum: 02/22/19 at 1241 by SUSAN HARMON MA DOCUMENTED BY BRONSON SAPP
--- NOTE | 2019-02-22 08:50 | NUR ---
Clinic Provider Clinic Provider UPDATED with new orders received and carried out. Lasix gtt started at {30}mg/hr per MD order. Addendum: 02/22/19 at 1241 by SUSAN HARMON MA DOCUMENTED BY BRONSON SAPP
--- NOTE | 2019-02-22 09:00 | NUR ---
IV insertion IV access obtained, via clean sterile technique by inserting 22 gauge catheter at after attempt(s). IV secured properly. No trauma to site. Patient tolerated procedure well. Addendum: 02/22/19 at 1241 by SUSAN HARMON MA DOCUMENTED BY BRONSON SAPP
--- NOTE | 2019-02-22 09:00 | NUR ---
Clinic Provider new orders received and carried out. Lasix gtt started at {30}mg/hr per MD order.
--- NOTE | 2019-02-22 12:20 | NUR ---
IV removal IV DC'd with sterile technique, catheter fully intact. Pressure dressing applied to site. Patient tolerated procedure well. Discharged with aftercare instructions per . NOTE: Addendum: 02/22/19 at 1240 by SUSAN HARMON MA DOCUMENTED BY BRONSON SAPP
--- NOTE | 2019-02-22 12:20 | NUR ---
IV removal IV DC'd with sterile technique, catheter fully intact. Pressure dressing applied to site. Patient tolerated procedure well. Discharged with aftercare instructions per MD. NOTE:
--- NOTE | 2019-02-22 12:25 | NUR ---
IV insertion IV access obtained, via clean sterile technique by inserting gauge catheter at after attempt(s). IV secured properly. No trauma to site. Patient tolerated procedure well. Addendum: 02/22/19 at 1236 by SUSAN HARMON MA WRONG NOTE PATIENT IV DC Addendum: 02/22/19 at 1240 by SUSAN HARMON MA DOCUMENTED BY BRONSON SAPP Addendum: 02/22/19 at 1254 by SUSAN HARMON MA CHARTED BY BRONSON LEBRON RN
--- NOTE | 2019-02-22 12:35 | NUR ---
Discharge Instructions See e-MAR for any mediations given with this visit. Patient education given on disease process. Patient verbalized understanding. Previous labs reviewed. Patient discharged in stable condition with after care instructions and follow up appointment. MEDICATIONS 09 START TIME LASIX DRIP 30MG.HR X 3 HR Addendum: 02/22/19 at 1238 by SUSAN HARMON MA 1215 STOP TIME LASIX DRIP 1005 POTASSIUM 30 MEQ PO X 1 Addendum: 02/22/19 at 1240 by SUSAN HARMON MA DOCUMENTED BY BRONSON SAPP Addendum: 02/22/19 at 1254 by SUSAN HARMON MA CHARTED BY BRONSON LEBRON RN
--- NOTE | 2019-02-22 12:35 | NUR ---
Discharge Instructions See e-MAR for any mediations given with this visit. Patient education given on disease process. Patient verbalized understanding. Previous labs reviewed. Patient discharged in stable condition with after care instructions and follow up appointment. MEDICATIONS 0907 START TIME LASIX DRIP 30MG/HR X 3 1215 STOP TIME LASIX DRIP 1005 POTASSIUM 30 MEQ PO X 1
== END | disposition home or self-care (01) ==
LOC: CHF HDHVI 09:00
PROVIDERS: ATTEND Internal Medicine
DX: I11.0 Hypertensive heart disease with heart failure (principal); I27.21 Secondary pulmonary arterial hypertension; I25.10 Atherosclerotic heart disease of native coronary artery without angina pectoris; I50.42 Chronic combined systolic (congestive) and diastolic (congestive) heart failure; J44.9 Chronic obstructive pulmonary disease, unspecified; E11.9 Type 2 diabetes mellitus without complications; E78.5 Hyperlipidemia, unspecified; Z99.2 Dependence on renal dialysis; Z79.4 Long term (current) use of insulin; Z79.891 Long term (current) use of opiate analgesic; Z87.891 Personal history of nicotine dependence; Z79.899 Other long term (current) drug therapy
CPT/HCPCS: 96365; 96366; G0463; J1940

== ENCOUNTER → 2019-02-24 | Outpatient (CLI) | payer MEDICAID ==
[~2019-02-24] MED LIST changes: -POTASSIUM CHL 20 Meq TABLET PO ONE
[2019-02-24 09:15] VITALS: BP 101/68
--- NOTE | 2019-02-24 09:45 | NUR ---
IV insertion IV access obtained by Gely SAPP, via clean sterile technique by inserting 22 gauge catheter at LFA after 1 attempt(s). IV secured properly. No trauma to site. Patient tolerated procedure well.
[2019-02-24 10:10] VITALS: BP 107/70
[2019-02-24 10:40] VITALS: BP 110/72
[2019-02-24 11:10] VITALS: BP 111/77
[2019-02-24 12:10] VITALS: BP 102/68
[2019-02-24 13:30] VITALS: BP 99/68
--- NOTE | 2019-02-24 13:30 | NUR ---
TOLERATED INFUSION WELL. DECLINED ANY DISTRESS OR DISCOMFORT.REMAINED ON OXYGEN FOR DURATION OF INFUSION AT 2LPM PER HOME OXYGEN. CARDIODYNAMICS DONE AND REVIEWED WITH PATIENT. CARDIODYNAMICS X 2 , PRE AND POST LASIX INFUSION. REVIEWED BY KAIN SAPP WITH PATIENT. ONGOING TRIPLE THERAPY REGARDING PAH, DOSE ADJUSTMENT OF UPTRAVI 800 MG PO TID. IV SITE TO LEFT FOREARM BENIGN POST INFUSION.SITE DCD. Discharge Instructions See e-MAR for any mediations given with this visit. Patient education given on disease process. Patient verbalized understanding. Previous labs reviewed. Patient discharged in stable condition with after care instructions and follow up appointment FOR Thursday03/03/19 MEDICATION ADMINISTRATION LASIX GTT AT 35 MG/HR FOR 90 MG TOTAL DOSE. START AT 1000/STOP AT 1315 POTASSIUM 30 MEQ PO AT 1000 CARDIODYNAMICS X 2 ( BEFORE AND AFTER LASIX INFUSION
== END | disposition home or self-care (01) ==
LOC: CHF HDHVI 09:15
PROVIDERS: ATTEND Internal Medicine
DX: I11.0 Hypertensive heart disease with heart failure (principal); I50.42 Chronic combined systolic (congestive) and diastolic (congestive) heart failure; J44.9 Chronic obstructive pulmonary disease, unspecified; I25.10 Atherosclerotic heart disease of native coronary artery without angina pectoris; E78.5 Hyperlipidemia, unspecified; E78.00 Pure hypercholesterolemia, unspecified; I27.21 Secondary pulmonary arterial hypertension; E11.9 Type 2 diabetes mellitus without complications; Z79.899 Other long term (current) drug therapy; Z99.2 Dependence on renal dialysis; Z79.4 Long term (current) use of insulin; Z79.82 Long term (current) use of aspirin; Z99.81 Dependence on supplemental oxygen; Z79.891 Long term (current) use of opiate analgesic; Z87.891 Personal history of nicotine dependence
CPT/HCPCS: 93701; 96365; 96366; G0463; J1940

== ENCOUNTER → 2019-03-03 | Outpatient (CLI) | payer MEDICAID ==
[~2019-03-03] MED LIST changes: +CYANOCOBALAMIN (B-12) 1000 MCG/1 ML VIAL IM ONE; +CYANOCOBALAMIN (B-12) 1000 MCG/1 ML VIAL ONE; -FUROSEMIDE 100 MG/10ML VIAL IV ONE; -FUROSEMIDE INJECTION 10 ML ONE; -POTASSIUM CHL 10 Meq TABLET PO ONE; -SODIUM CHLORIDE 0.9% 100 ML IV ONE
--- NOTE | 2019-03-03 09:00 | NUR ---
CHF PT AT CHF CLINIC FOR PAH FOLLOW UP, 6 MIN WALK TEST. VITAL SIGNS OBTAINED PT ALERT ORIENTED 0 DISTRESS
--- NOTE | 2019-03-03 09:10 | NUR ---
CHF 6 MIN WALK TEST PERFORMED PT TOLERATED WELL
[2019-03-03 09:30] VITALS: BP 102/61
--- NOTE | 2019-03-03 09:30 | NUR ---
Discharge Instructions See e-MAR for any mediations given with this visit. Patient education given on disease process. Patient verbalized understanding. Previous labs reviewed. Patient discharged in stable condition with after care instructions and follow up appointment. MEDICATIONS 0927 VITAMIN B12 IM X 1 LEFT DELTOID LOT # [id number] EXP 12/16
[2019-03-03 12:17] LABS: Basophils # (auto) 0.1 uL; Basophils % (auto) 0.8 % (0.0-2.0); Eosinophils # (auto) 0.1 uL; Eosinophils % (auto) 1.6 % (0.0-7.0); Hematocrit 45.7 % (41.0-53.0); Hemoglobin 15.4 g/dL (13.5-17.5); Lymphocytes # (auto) 1.3 uL; Lymphocytes % (auto) 18.4 % (10.0-50.0); Mean Corpuscular Hemoglobin 31.3 pg (28.0-32.0); Mean Corpuscular Hgb Conc. 33.6 g/dL (32.0-36.0); Mean Corpuscular Volume 93.1 fL (80.0-100.0); Monocytes # (auto) 0.5 uL; Monocytes % (auto) 7.5 % (0.0-12.0); Neutrophils # (auto) 5.1 uL; Neutrophils % (auto) 71.7 % (37.0-80.0); Nucleated Red Blood Cells % 0.3 %; Platelet Count (auto) 201 10^3/uL (140-450); Red Blood Cells 4.91 10^6/uL (4.5-5.90); Red Cell Distribution Width 15.1 % (11.8-14.3)
[2019-03-03 12:36] LABS: Potassium 4.2 mmol/L (3.5-5.1)
[2019-03-03 12:46] LABS: Albumin 4.2 g/dL (3.4-5.0); BUN/Creatinine Ratio 21.1; Calcium 9.2 mg/dL (8.5-10.1); Folate (Folic Acid) 11.15 ng/mL (5.38-24); Total Protein 7.6 g/dL (6.4-8.2); Uric Acid 5.6 mg/dL (3.5-7.2)
== END | disposition home or self-care (01) ==
LOC: CHF HDHVI 08:30
PROVIDERS: ATTEND Internal Medicine
DX: I27.21 Secondary pulmonary arterial hypertension (principal); R53.83 Other fatigue; D51.9 Vitamin B12 deficiency anemia, unspecified; E78.00 Pure hypercholesterolemia, unspecified; D52.9 Folate deficiency anemia, unspecified; D64.9 Anemia, unspecified; I11.0 Hypertensive heart disease with heart failure; I25.10 Atherosclerotic heart disease of native coronary artery without angina pectoris; I50.42 Chronic combined systolic (congestive) and diastolic (congestive) heart failure; J44.9 Chronic obstructive pulmonary disease, unspecified; E78.5 Hyperlipidemia, unspecified; E11.9 Type 2 diabetes mellitus without complications; Z99.2 Dependence on renal dialysis; Z99.81 Dependence on supplemental oxygen; Z79.82 Long term (current) use of aspirin; Z79.891 Long term (current) use of opiate analgesic; Z79.4 Long term (current) use of insulin; Z87.891 Personal history of nicotine dependence
CPT/HCPCS: 36415; 80053; 80061; 82607; 82746; 83540; 83550; 83880; 84550; 85025; 94618; 96372; G0463; J3420

== ENCOUNTER → 2019-03-10 | Outpatient (CLI) | payer MEDICAID ==
[~2019-03-10] MED LIST changes: -CYANOCOBALAMIN (B-12) 1000 MCG/1 ML VIAL IM ONE; -CYANOCOBALAMIN (B-12) 1000 MCG/1 ML VIAL ONE
[2019-03-10 08:30] VITALS: BP 118/64
[2019-03-10 10:00] VITALS: BP 115/60
--- NOTE | 2019-03-10 10:00 | NUR ---
IN TO CLINIC FOR PAH FOLLOWUP. AWAKE AND ALERT WITHOUT DISTRESS WITH HOME OXYGEN IN USE AT 2LPM. REVIEWED MEDICATIONS AND STATUS. PT REPORTS FEELING WELL. ALTHOUGH REPORTS MUSCLE WEAKNESS ESPECIALLY AFTER AN INJECTION OF ANY KIND. REVIEWED SIGNS AND SYMPTOMS OF TRIPLE THERAPY PAH MANAGEMENT AND WILL MONITOR AN ADDITIONAL WEEK AND FOLLOWUP REGARDING MUSCLE WEAKNESS. Discharge Instructions See e-MAR for any mediations given with this visit. Patient education given on disease process. Patient verbalized understanding. Previous labs reviewed. Patient discharged in stable condition with after care instructions and follow up appointment FOR NEXT Thursday03/17/19
== END | disposition home or self-care (01) ==
LOC: CHF HDHVI 08:34
PROVIDERS: ATTEND Internal Medicine
DX: I25.10 Atherosclerotic heart disease of native coronary artery without angina pectoris (principal); I27.21 Secondary pulmonary arterial hypertension
CPT/HCPCS: G0463

== ENCOUNTER → 2019-03-17 | Outpatient (CLI) | payer MEDICAID ==
[~2019-03-17] MED LIST changes: +FUROSEMIDE 40 MG/4 ML VIAL IV ONE; +FUROSEMIDE 40 MG/4 ML VIAL ONE; +POTASSIUM CHL 10 Meq TABLET PO ONE; +POTASSIUM CHL 20 Meq TABLET PO ONE
[2019-03-17 09:47] VITALS: BP 105/66
[2019-03-17 09:48] VITALS: BP 116/70
--- NOTE | 2019-03-17 09:48 | NUR ---
PAH FOLLOWUP. REMAIN ON OXYGEN FROM HOME AND APPEARS WITHOUT DISTRESS AND WITHOUT DYSPNEA. OVERALL MUSCLE ACHES APPEAR IMPROVED SINCE LAST WEEK. PT DENIES ANY JOINT PAIN TODAY AND DENIES PAIN. CLINIC PROVIDER CONSULTED AND NEW ORDERS RECIEVED. ORDERS CARRIED OUT. Discharge Instructions See e-MAR for any mediations given with this visit. Patient education given on disease process. Patient verbalized understanding. Previous labs reviewed. Patient discharged in stable condition with after care instructions and follow up appointment IN 1 WEEK. MEDICATION ADMINISTRATION LASIX 40 MG IVP X 1 AT 0856 POTASSIUM 20 MEQ PO AT 0905
[2019-03-17 12:42] LABS: Potassium 4.1 mmol/L (3.5-5.1)
== END | disposition home or self-care (01) ==
LOC: CHF HDHVI 08:38
PROVIDERS: ATTEND Internal Medicine
DX: I11.0 Hypertensive heart disease with heart failure (principal); I50.42 Chronic combined systolic (congestive) and diastolic (congestive) heart failure; I27.21 Secondary pulmonary arterial hypertension; R94.4 Abnormal results of kidney function studies; R06.00 Dyspnea, unspecified; E87.6 Hypokalemia; I25.10 Atherosclerotic heart disease of native coronary artery without angina pectoris; J44.9 Chronic obstructive pulmonary disease, unspecified; E78.5 Hyperlipidemia, unspecified; E11.9 Type 2 diabetes mellitus without complications; Z79.899 Other long term (current) drug therapy; Z99.2 Dependence on renal dialysis; Z99.81 Dependence on supplemental oxygen; Z79.82 Long term (current) use of aspirin; Z79.4 Long term (current) use of insulin; Z79.891 Long term (current) use of opiate analgesic; Z87.891 Personal history of nicotine dependence
CPT/HCPCS: 36415; 82565; 84132; 84520; 96374; G0463; J1940

== ENCOUNTER → 2019-03-24 | Outpatient (CLI) | payer MEDICAID ==
[~2019-03-24] MED LIST changes: +BUMETANIDE 1mg/4ml VIAL (0.25mg/ml) ONE; +FUROSEMIDE 20 MG/2 ML VIAL IV ONE; +FUROSEMIDE 20 MG/2 ML VIAL ONE; -FUROSEMIDE 40 MG/4 ML VIAL IV ONE; -FUROSEMIDE 40 MG/4 ML VIAL ONE
[2019-03-24 08:40] VITALS: BP 115/70
--- NOTE | 2019-03-24 08:40 | NUR ---
CHF PT ARRIVED AT THE CHF CLINIC 0 DISTRESS, V/S OBTAINED MD UPDATED 0 DISTRESS
--- NOTE | 2019-03-24 09:15 | NUR ---
IV insertion IV access obtained, via clean sterile technique by inserting 22 gauge catheter at after attempt(s). IV secured properly. No trauma to site. Patient tolerated procedure well.
--- NOTE | 2019-03-24 10:40 | NUR ---
EDUCATION PT UPDATED ON DIETART COMPLIANCE AND THE IMPORTANCE OF DECREASING SALT INTAKE. EDUCATIONAL MATERIAL GIVEN. PT VERBALIZED UNDERSTANDING
--- NOTE | 2019-03-24 11:15 | NUR ---
IV removal IV DC'd with sterile technique, catheter fully intact. Pressure dressing applied to site. Patient tolerated procedure well. Discharged with aftercare instructions per MD. NOTE:
--- NOTE | 2019-03-24 11:30 | NUR ---
Discharge Instructions See e-MAR for any mediations given with this visit. Patient education given on disease process. Patient verbalized understanding. Previous labs reviewed. Patient discharged in stable condition with after care instructions and follow up appointment. MEDICATIONS 0945 BUMEX DRIP 1 MG IVP X 1 1106 LASIX 20 MG IVP X 1 1106 POTASSIUM 20 MEQ PO X 1
== END | disposition home or self-care (01) ==
LOC: CHF HDHVI 08:49
PROVIDERS: ATTEND Internal Medicine
DX: I27.21 Secondary pulmonary arterial hypertension (principal); I11.0 Hypertensive heart disease with heart failure; I50.42 Chronic combined systolic (congestive) and diastolic (congestive) heart failure; I25.10 Atherosclerotic heart disease of native coronary artery without angina pectoris; I42.9 Cardiomyopathy, unspecified; J44.9 Chronic obstructive pulmonary disease, unspecified; E11.9 Type 2 diabetes mellitus without complications; E78.5 Hyperlipidemia, unspecified; E78.00 Pure hypercholesterolemia, unspecified; Z87.891 Personal history of nicotine dependence; Z79.82 Long term (current) use of aspirin; Z79.4 Long term (current) use of insulin; Z99.81 Dependence on supplemental oxygen; Z99.2 Dependence on renal dialysis
CPT/HCPCS: 96374; 96375; G0463; J1940; J3490

== ENCOUNTER → 2019-03-31 | Outpatient (CLI) | payer MEDICAID ==
[~2019-03-31] MED LIST changes: -BUMETANIDE 1mg/4ml VIAL (0.25mg/ml) ONE; +CYANOCOBALAMIN (B-12) 1000 MCG/1 ML VIAL IM ONE; +CYANOCOBALAMIN (B-12) 1000 MCG/1 ML VIAL ONE; -FUROSEMIDE 20 MG/2 ML VIAL IV ONE; -FUROSEMIDE 20 MG/2 ML VIAL ONE; +KETOROLAC TROMETH 60MG/2ML VIAL IM ONE; +KETOROLAC TROMETH 60MG/2ML VIAL ONE; -POTASSIUM CHL 10 Meq TABLET PO ONE; -POTASSIUM CHL 20 Meq TABLET PO ONE
[2019-03-31 08:00] VITALS: BP 113/71
--- NOTE | 2019-03-31 08:00 | NUR ---
CHF PT ARRIVED AT THE CHF CLINIC FOR PAH FOLLOW UP. PT A/O X 3 EXPRESSED FEELINIG BETTER THIS WEEK. V/S OBTAINED
--- NOTE | 2019-03-31 08:30 | NUR ---
CARDIODYNAMICS COMPLETE PT TOLERATED WELL, DISCUSSED RESULTS WITH PATIENTS AND CLARIFIED IMPROVEMENT. PT VERBALIZED UNDERSTANDING
--- NOTE | 2019-03-31 09:00 | NUR ---
Discharge Instructions See e-MAR for any mediations given with this visit. Patient education given on disease process. Patient verbalized understanding. Previous labs reviewed. Patient discharged in stable condition with after care instructions and follow up appointment. MEDICATIONS 929 TORADOL 60 MG IM X 1 LOT # [id number] EXP 12/16 924 VITAMIN B12 1000MCG IM X 1 LOT # [id number] EXP 09/14
[2019-03-31 11:57] LABS: Calcium 8.9 mg/dL (8.5-10.1); Magnesium 2.6 mg/dL (1.6-2.6); Potassium 3.9 mmol/L (3.5-5.1)
[2019-03-31 12:06] LABS: Basophils # (auto) 0 uL; Basophils % (auto) 0.5 % (0.0-2.0); Eosinophils # (auto) 0.2 uL; Eosinophils % (auto) 2.1 % (0.0-7.0); Hematocrit 43.1 % (41.0-53.0); Hemoglobin 14.7 g/dL (13.5-17.5); Lymphocytes # (auto) 1.6 uL; Lymphocytes % (auto) 20.8 % (10.0-50.0); Mean Corpuscular Hemoglobin 31.8 pg (28.0-32.0); Mean Corpuscular Hgb Conc. 34.2 g/dL (32.0-36.0); Mean Corpuscular Volume 92.9 fL (80.0-100.0); Monocytes # (auto) 0.6 uL; Monocytes % (auto) 8.1 % (0.0-12.0); Neutrophils # (auto) 5.1 uL; Neutrophils % (auto) 68.5 % (37.0-80.0); Platelet Count (auto) 182 10^3/uL (140-450); Red Blood Cells 4.64 10^6/uL (4.5-5.90); Red Cell Distribution Width 15.1 % (11.8-14.3); White Blood Cell 7.5 10^3/uL (4.4-10.8)
[2019-03-31 14:01] VITALS: BP 113/71
== END | disposition home or self-care (01) ==
LOC: CHF HDHVI 08:24
PROVIDERS: ATTEND Internal Medicine
DX: I27.21 Secondary pulmonary arterial hypertension (principal); I11.0 Hypertensive heart disease with heart failure; I50.42 Chronic combined systolic (congestive) and diastolic (congestive) heart failure; D64.9 Anemia, unspecified; I25.10 Atherosclerotic heart disease of native coronary artery without angina pectoris; J44.9 Chronic obstructive pulmonary disease, unspecified; I42.9 Cardiomyopathy, unspecified; E78.00 Pure hypercholesterolemia, unspecified; E83.40 Disorders of magnesium metabolism, unspecified; E11.9 Type 2 diabetes mellitus without complications; E78.5 Hyperlipidemia, unspecified; Z79.82 Long term (current) use of aspirin; Z79.4 Long term (current) use of insulin; Z87.891 Personal history of nicotine dependence; Z79.891 Long term (current) use of opiate analgesic; Z79.899 Other long term (current) drug therapy; Z99.81 Dependence on supplemental oxygen
CPT/HCPCS: 36415; 80048; 83735; 85025; 93701; 96372; G0463; J1885; J3420

== ENCOUNTER → 2019-04-07 | Outpatient (CLI) | payer MEDICAID ==
[~2019-04-07] MED LIST changes: -CYANOCOBALAMIN (B-12) 1000 MCG/1 ML VIAL IM ONE; -CYANOCOBALAMIN (B-12) 1000 MCG/1 ML VIAL ONE; -KETOROLAC TROMETH 60MG/2ML VIAL IM ONE; -KETOROLAC TROMETH 60MG/2ML VIAL ONE
[2019-04-07 08:30] VITALS: BP 115/73
[2019-04-07 10:04] VITALS: BP 113/73
--- NOTE | 2019-04-07 10:04 | NUR ---
PAH FOLLOWUP. OXYGEN IN USE. WITHOUT DISTRESS. LABS DRAWN AND SENT.
[2019-04-07 12:12] LABS: Potassium 3.9 mmol/L (3.5-5.1)
== END | disposition home or self-care (01) ==
LOC: CHF HDHVI 08:40
PROVIDERS: ATTEND Internal Medicine
DX: I11.0 Hypertensive heart disease with heart failure (principal); I50.23 Acute on chronic systolic (congestive) heart failure; I27.21 Secondary pulmonary arterial hypertension
CPT/HCPCS: 36415; 82565; 84132; 84520; G0463

== ENCOUNTER → 2019-04-14 | Outpatient (CLI) | payer MEDICAID ==
[2019-04-14 08:40] VITALS: BP 111/70
[2019-04-14 09:55] VITALS: BP 113/77
--- NOTE | 2019-04-14 09:55 | NUR ---
PAH FOLLOWUP. WITHOUT COMPLAINTS. VSS. IN WITH USE OF HOME OXYGEN AT 2 LPM. AFFECT WNL. CLINIC PROVIDER IN WITH ORDERS RECIEVED. Clinic Provider Clinic Provider into see pt with new orders received and carried out. MEDICATION ADMINISTRATION. NO MEDICACTION
[2019-04-14 12:22] LABS: Basophils # (auto) 0 uL; Basophils % (auto) 0.6 % (0.0-2.0); Eosinophils # (auto) 0.1 uL; Eosinophils % (auto) 2.1 % (0.0-7.0); Hematocrit 49.6 % (41.0-53.0); Hemoglobin 16.7 g/dL (13.5-17.5); Lymphocytes # (auto) 1.3 uL; Lymphocytes % (auto) 18.7 % (10.0-50.0); Mean Corpuscular Hemoglobin 31.3 pg (28.0-32.0); Mean Corpuscular Hgb Conc. 33.6 g/dL (32.0-36.0); Mean Corpuscular Volume 93.2 fL (80.0-100.0); Monocytes # (auto) 0.5 uL; Neutrophils # (auto) 4.8 uL; Neutrophils % (auto) 70.6 % (37.0-80.0); Nucleated Red Blood Cells % 0.2 %; Platelet Count (auto) 224 10^3/uL (140-450); Red Blood Cells 5.32 10^6/uL (4.5-5.90); Red Cell Distribution Width 14.9 % (11.8-14.3); White Blood Cell 6.8 10^3/uL (4.4-10.8)
[2019-04-14 12:58] LABS: Albumin 4.4 g/dL (3.4-5.0); Calcium 9.4 mg/dL (8.5-10.1); Potassium 4.2 mmol/L (3.5-5.1)
[2019-04-14 13:02] LABS: BUN/Creatinine Ratio 16.4; Bilirubin, Total 1.1 mg/dL (0.2-1.0)
== END | disposition home or self-care (01) ==
LOC: CHF HDHVI 09:26
PROVIDERS: ATTEND Internal Medicine
DX: D64.9 Anemia, unspecified (principal); E61.1 Iron deficiency; R53.83 Other fatigue; I27.20 Pulmonary hypertension, unspecified; I11.0 Hypertensive heart disease with heart failure; I50.9 Heart failure, unspecified; Z79.899 Other long term (current) drug therapy
CPT/HCPCS: 36415; 80053; 82306; 83036; 83540; 83550; 85025; G0463

== ENCOUNTER → 2019-04-21 | Outpatient (CLI) | payer MEDICAID ==
[2019-04-21 08:00] VITALS: BP 114/72
--- NOTE | 2019-04-21 09:45 | NUR ---
PAH FOLLOWUP. ON OXYGEN FROM HOME AT 4 LPM WITH SPO2 WNL. AFFECT CHEERFUL AND TALKATIVE AND WITHOUT DISTRESS. PT CONTINUES ON ADEMPASS 2 MG PO TID UPTRAVI 800 MG PO BID OPSUMMIT 10 MG PO DAILY PT HAS NEW DIABETIC SHOES AND REPORTS NO PAIN IN HIS FEET. REPORTS HIS ACTIVITY LEVEL HAS IMPROVED. DOING MORE WALKING AND SCLERA OF EYES ARE WHITE AND BRIGHT. PT VERBALIZES FEELING WELL OVERALL. 6MWT DONE AND REVIEWED WITH INCREASE OF 70 METERS SINCE 03/03/19. Discharge Instructions See e-MAR for any mediations given with this visit. Patient education given on disease process. Patient verbalized understanding. Previous labs reviewed. Patient discharged in stable condition with after care instructions .
[2019-04-21 09:59] VITALS: BP 109/63
== END | disposition home or self-care (01) ==
LOC: CHF HDHVI 08:46
PROVIDERS: ATTEND Internal Medicine
DX: I27.21 Secondary pulmonary arterial hypertension (principal); R06.02 Shortness of breath; I11.0 Hypertensive heart disease with heart failure; I50.9 Heart failure, unspecified
CPT/HCPCS: 94618; G0463

== ENCOUNTER → 2019-05-05 | Outpatient (CLI) | payer MEDICAID ==
[~2019-05-05] MED LIST changes: +BUMETANIDE 1mg/4ml VIAL (0.25mg/ml) IV ONE; +BUMETANIDE 1mg/4ml VIAL (0.25mg/ml) ONE; +POTASSIUM CHL 10 Meq TABLET PO ONE; +POTASSIUM CHL 20 Meq TABLET PO ONE
--- NOTE | 2019-05-05 08:50 | NUR ---
PT. TO CHF/PAH CLINIC FOR EVAL. AND TX. WT. GAIN CONTINUES WITH HX OF POOR DIETARY COMPLIANCE. NEW ORDERS RECEIVED AND CARRIED OUT. SEE NSG ASSESS.
--- NOTE | 2019-05-05 09:10 | NUR ---
MEDS: PT. MEDICATE WITH BUMEX 2 MG SIVP AND KDUR 30 MEQ PO PER MD MAURICE.
--- NOTE | 2019-05-05 09:30 | NUR ---
BRP X1 WITHOUT ASSIST. PT. REMAINS ON 4L/NC HOME O2.
[2019-05-05 09:37] VITALS: BP 110/73
--- NOTE | 2019-05-05 09:37 | NUR ---
Discharge Instructions See e-MAR for any mediations given with this visit. Patient education given on disease process. Patient verbalized understanding. Previous labs reviewed. Patient discharged in stable condition with after care instructions and follow up appointment. PT. TO RTC IN 1 WEEK.
--- NOTE | 2019-05-05 09:40 | NUR ---
NOTE: MEDS; 2MG BUMEX IVP, CLINIC VISIT, KDUR 30 MEQ PO.
[2019-05-05 16:35] LABS: Potassium 4.1 mmol/L (3.5-5.1)
[2019-05-05 16:47] LABS: BUN/Creatinine Ratio 14.1; Calcium 9.4 mg/dL (8.5-10.1); Magnesium 2.5 mg/dL (1.6-2.6)
== END | disposition home or self-care (01) ==
LOC: CHF HDHVI 08:52
PROVIDERS: ATTEND Internal Medicine
DX: I11.0 Hypertensive heart disease with heart failure (principal); I50.42 Chronic combined systolic (congestive) and diastolic (congestive) heart failure; I25.10 Atherosclerotic heart disease of native coronary artery without angina pectoris; I27.21 Secondary pulmonary arterial hypertension; E78.5 Hyperlipidemia, unspecified; E78.00 Pure hypercholesterolemia, unspecified; I42.9 Cardiomyopathy, unspecified; E83.40 Disorders of magnesium metabolism, unspecified; E11.9 Type 2 diabetes mellitus without complications; J44.9 Chronic obstructive pulmonary disease, unspecified; Z79.82 Long term (current) use of aspirin; Z79.4 Long term (current) use of insulin; Z79.891 Long term (current) use of opiate analgesic; Z87.891 Personal history of nicotine dependence; Z79.899 Other long term (current) drug therapy
CPT/HCPCS: 36415; 80048; 80061; 83735; 96374; G0463; J3490

== ENCOUNTER → 2019-05-12 | Outpatient (CLI) | payer MEDICAID ==
[~2019-05-12] MED LIST changes: +ASPI-404 PO; -ASPI81TA27 PO; -BUMETANIDE 1mg/4ml VIAL (0.25mg/ml) IV ONE; -BUMETANIDE 1mg/4ml VIAL (0.25mg/ml) ONE; -POTASSIUM CHL 10 Meq TABLET PO ONE; -POTASSIUM CHL 20 Meq TABLET PO ONE
[2019-05-12 09:15] VITALS: BP 109/63
--- NOTE | 2019-05-12 09:15 | NUR ---
PAH FOLLOWUP. AMBULATING IN TO CLINIC WITHOUT OXYGEN, REMINDED TO APPLY OXYGEN. SPO2 91 % AFTER WAITING AND RESTING IN CLINIC WITH SPO2 IN CONTINUOUS USE. STATUS REVIEW AND MEDICATION REVIEW BY JAZLYN RN. 6MWT DONE AND REVIEWED BY JAZLYN RN. Discharge Instructions See e-MAR for any mediations given with this visit. Patient education given on disease process. Patient verbalized understanding. Previous labs reviewed. Patient discharged in stable condition with after care instructions and follow up appointment IN 2 WEEKS.
== END | disposition home or self-care (01) ==
LOC: CHF HDHVI 08:14
PROVIDERS: ATTEND Internal Medicine
DX: I27.21 Secondary pulmonary arterial hypertension (principal); R06.00 Dyspnea, unspecified
CPT/HCPCS: 94618; G0463

== ENCOUNTER → 2019-05-19 | Outpatient (CLI) | payer MEDICAID ==
[~2019-05-19] MED LIST changes: +CYANOCOBALAMIN (B-12) 1000 MCG/1 ML VIAL IM ONE; +CYANOCOBALAMIN (B-12) 1000 MCG/1 ML VIAL ONE
[2019-05-19 08:11] VITALS: BP 113/63
--- NOTE | 2019-05-19 08:11 | NUR ---
CHF ARRIVAL TO [facility] FOR EVAL/TX.FOLLOW UP
--- NOTE | 2019-05-19 09:15 | NUR ---
PT TO CALL JAZLYN RN BACK AND INFORM JAZLYN OF HOME PROBIOTIC PRODUCT THAT PATIENT HAS
[2019-05-19 09:30] VITALS: BP 114/70
--- NOTE | 2019-05-19 09:30 | NUR ---
Discharge Instructions See e-MAR for any mediations given with this visit. Patient education given on disease process. Patient verbalized understanding. Previous labs reviewed. Patient discharged in stable condition with after care instructions and follow up appointment. MEDICATIONS VITAMIN B12 1000MCG IM LEFT DELTOID CARDIODYNAMICS
[2019-05-19 10:21] VITALS: BP 113/63
[2019-05-19 11:58] LABS: Basophils # (auto) 0.1 uL; Basophils % (auto) 0.6 % (0.0-2.0); Eosinophils # (auto) 0.2 uL; Eosinophils % (auto) 2.9 % (0.0-7.0); Hematocrit 47.5 % (41.0-53.0); Hemoglobin 16.1 g/dL (13.5-17.5); Lymphocytes # (auto) 1.2 uL; Lymphocytes % (auto) 14.3 % (10.0-50.0); Mean Corpuscular Hemoglobin 31.2 pg (28.0-32.0); Mean Corpuscular Hgb Conc. 33.9 g/dL (32.0-36.0); Mean Corpuscular Volume 91.8 fL (80.0-100.0); Monocytes # (auto) 0.6 uL; Monocytes % (auto) 7.3 % (0.0-12.0); Neutrophils # (auto) 6.2 uL; Neutrophils % (auto) 74.9 % (37.0-80.0); Platelet Count (auto) 204 10^3/uL (140-450); Red Blood Cells 5.17 10^6/uL (4.5-5.90); Red Cell Distribution Width 14.4 % (11.8-14.3); White Blood Cell 8.3 10^3/uL (4.4-10.8)
[2019-05-19 12:24] LABS: Potassium 3.9 mmol/L (3.5-5.1)
[2019-05-19 12:38] LABS: Albumin 4.2 g/dL (3.4-5.0); BUN/Creatinine Ratio 21.8; Bilirubin, Total 0.7 mg/dL (0.2-1.0); Calcium 9.2 mg/dL (8.5-10.1); Total Protein 8.4 g/dL (6.4-8.2)
== END | disposition home or self-care (01) ==
LOC: CHF HDHVI 08:17
PROVIDERS: ATTEND Internal Medicine
DX: I11.0 Hypertensive heart disease with heart failure (principal); I50.42 Chronic combined systolic (congestive) and diastolic (congestive) heart failure; D64.9 Anemia, unspecified; I27.21 Secondary pulmonary arterial hypertension; R53.83 Other fatigue; I25.10 Atherosclerotic heart disease of native coronary artery without angina pectoris; J44.9 Chronic obstructive pulmonary disease, unspecified; E78.5 Hyperlipidemia, unspecified; E78.00 Pure hypercholesterolemia, unspecified; E11.9 Type 2 diabetes mellitus without complications; Z99.81 Dependence on supplemental oxygen; Z79.82 Long term (current) use of aspirin; Z79.4 Long term (current) use of insulin; Z79.891 Long term (current) use of opiate analgesic; Z79.899 Other long term (current) drug therapy
CPT/HCPCS: 36415; 80053; 85025; 93701; 96372; G0463; J3420

== ENCOUNTER → 2019-05-26 | Outpatient (CLI) | payer MEDICAID ==
[~2019-05-26] MED LIST changes: -CYANOCOBALAMIN (B-12) 1000 MCG/1 ML VIAL IM ONE; -CYANOCOBALAMIN (B-12) 1000 MCG/1 ML VIAL ONE; +MVI in SODIUM CHLORIDE 0.9% 1,010 ML ONE
--- NOTE | 2019-05-26 09:00 | NUR ---
IV insertion IV access obtained, via clean sterile technique by inserting 22 gauge catheter at after attempt(s). IV secured properly. No trauma to site. Patient tolerated procedure well.
--- NOTE | 2019-05-26 11:55 | NUR ---
IV removal IV DC'd with sterile technique, catheter fully intact. Pressure dressing applied to site. Patient tolerated procedure well. Discharged with aftercare instructions per MD. NOTE:
--- NOTE | 2019-05-26 12:00 | NUR ---
Discharge Instructions See e-MAR for any mediations given with this visit. Patient education given on disease process. Patient verbalized understanding. Previous labs reviewed. Patient discharged in stable condition with after care instructions and follow up appointment. MEDICATIONS MVI 500ML IV X 1 [id number]
[2019-05-26 16:23] VITALS: BP 104/77
== END | disposition home or self-care (01) ==
LOC: CHF HDHVI 08:58
PROVIDERS: ATTEND Internal Medicine
DX: I27.21 Secondary pulmonary arterial hypertension (principal); I11.0 Hypertensive heart disease with heart failure; I50.42 Chronic combined systolic (congestive) and diastolic (congestive) heart failure; I25.10 Atherosclerotic heart disease of native coronary artery without angina pectoris; J44.9 Chronic obstructive pulmonary disease, unspecified; E78.5 Hyperlipidemia, unspecified; E11.9 Type 2 diabetes mellitus without complications; Z79.891 Long term (current) use of opiate analgesic; Z79.82 Long term (current) use of aspirin; Z79.4 Long term (current) use of insulin; Z79.899 Other long term (current) drug therapy; Z87.891 Personal history of nicotine dependence
CPT/HCPCS: 96365; 96366; G0463; J3411; J3475

== ENCOUNTER → 2019-06-02 | Outpatient (CLI) | payer MEDICAID ==
[~2019-06-02] MED LIST changes: -MVI in SODIUM CHLORIDE 0.9% 1,010 ML ONE
[2019-06-02 08:00] VITALS: BP 102/64
--- NOTE | 2019-06-02 10:00 | NUR ---
PATIENT HAS A HX OF PULMONARY HYPERTENSION DISEASE, HOME O2 AT 4 LPM, SHORTNESS OF BREATH AND FATIGUE. ORDER FOR TRILOGY PER DR CLEMONS.
[2019-06-02 10:15] VITALS: BP 93/65
--- NOTE | 2019-06-02 10:15 | NUR ---
CHF CLINIC Discharge Instructions See e-MAR for any mediations given with this visit. Patient education given on disease process. Patient verbalized understanding. Previous labs reviewed. Patient discharged in stable condition with after care instructions and follow up appointment. NOTE CARDIODYNAMICS PERFORMED BY VEGA GUILLAUME AND REVIEWED WITH PATIENT BY ORTIZ SAPP ECHO SCHEDULED FOR NEXT THURSDAY AT 0800 ORDER FOR TRILOGY CALLED IN.
[2019-06-02 12:43] LABS: Potassium 4.5 mmol/L (3.5-5.1)
== END | disposition home or self-care (01) ==
LOC: CHF HDHVI 08:22
PROVIDERS: ATTEND Internal Medicine
DX: R94.4 Abnormal results of kidney function studies (principal); E87.6 Hypokalemia; R06.02 Shortness of breath; R53.83 Other fatigue; I11.0 Hypertensive heart disease with heart failure; I50.9 Heart failure, unspecified
CPT/HCPCS: 36415; 82565; 84132; 84520; 93701; G0463

== ENCOUNTER → 2019-06-09 | Outpatient (CLI) | payer MEDICAID ==
[~2019-06-09] MED LIST changes: +FUROSEMIDE 40 MG/4 ML VIAL IV ONE; +FUROSEMIDE 40 MG/4 ML VIAL ONE; +POTASSIUM CHL 10 Meq TABLET PO ONE
[2019-06-09 08:15] VITALS: BP 109/68
[2019-06-09 09:52] LABS: Potassium 3.8 mmol/L (3.5-5.1)
[2019-06-09 11:12] VITALS: BP 108/71
--- NOTE | 2019-06-09 11:18 | NUR ---
Discharge Instructions See e-MAR for any mediations given with this visit. Patient education given on disease process. Patient verbalized understanding. Previous labs reviewed. Patient discharged in stable condition with after care instructions and follow up appointment. MEDICATIONS LASIX 40MG IVP X 1 POTASSIUM 20 MEQ PO ECHO COMPLETED TODAY
== END | disposition home or self-care (01) ==
LOC: Rad HDHVI 08:27
PROVIDERS: ATTEND Internal Medicine Cardiovascular Disease
DX: I27.21 Secondary pulmonary arterial hypertension (principal); R94.4 Abnormal results of kidney function studies; E87.5 Hyperkalemia; R53.83 Other fatigue; R55 Syncope and collapse; R06.02 Shortness of breath
CPT/HCPCS: 36415; 82565; 84132; 84520; 93306; 96374; G0463; J1940

== ENCOUNTER → 2019-06-16 | Outpatient (CLI) | payer MEDICAID ==
[~2019-06-16] MED LIST changes: -FUROSEMIDE 40 MG/4 ML VIAL IV ONE; -FUROSEMIDE 40 MG/4 ML VIAL ONE; -POTASSIUM CHL 10 Meq TABLET PO ONE; +diphenhdrAMINE HCL 25 MG CAP PO ONE
[2019-06-16 08:40] VITALS: BP 110/65
--- NOTE | 2019-06-16 08:40 | NUR ---
CHF PT ARRIVED TO THE CHF CLINIC FOR WEEKLY FOLOW UP, A/O X 3 0 DISTRESS, VSS
--- NOTE | 2019-06-16 09:46 | NUR ---
CARDIODYNAMICS COMPLETE
--- NOTE | 2019-06-16 10:05 | NUR ---
LABS DRAWN AND SENT.
[2019-06-16 10:40] VITALS: BP 110/65
--- NOTE | 2019-06-16 10:40 | NUR ---
Discharge Instructions See e-MAR for any mediations given with this visit. Patient education given on disease process. Patient verbalized understanding. Previous labs reviewed. Patient discharged in stable condition with after care instructions and follow up appointment.
[2019-06-16 12:14] LABS: Basophils # (auto) 0.1 uL; Basophils % (auto) 0.8 % (0.0-2.0); Eosinophils # (auto) 0.2 uL; Eosinophils % (auto) 2.4 % (0.0-7.0); Hematocrit 46.7 % (41.0-53.0); Hemoglobin 15.7 g/dL (13.5-17.5); Lymphocytes # (auto) 1.2 uL; Lymphocytes % (auto) 14.3 % (10.0-50.0); Mean Corpuscular Hgb Conc. 33.7 g/dL (32.0-36.0); Mean Corpuscular Volume 91.9 fL (80.0-100.0); Monocytes # (auto) 0.7 uL; Monocytes % (auto) 8.2 % (0.0-12.0); Neutrophils # (auto) 6.1 uL; Neutrophils % (auto) 74.3 % (37.0-80.0); Nucleated Red Blood Cells % 0.1 %; Platelet Count (auto) 209 10^3/uL (140-450); Red Blood Cells 5.09 10^6/uL (4.5-5.90); Red Cell Distribution Width 14.8 % (11.8-14.3); White Blood Cell 8.2 10^3/uL (4.4-10.8)
[2019-06-16 12:47] LABS: Albumin 4.3 g/dL (3.4-5.0); BUN/Creatinine Ratio 18.1; Calcium 9.1 mg/dL (8.5-10.1); Magnesium 2.5 mg/dL (1.6-2.6); Potassium 4.2 mmol/L (3.5-5.1)
[2019-06-16 12:49] LABS: Bilirubin, Total 0.8 mg/dL (0.2-1.0); Total Protein 7.8 g/dL (6.4-8.2)
== END | disposition home or self-care (01) ==
LOC: CHF HDHVI 08:38
PROVIDERS: ATTEND Internal Medicine
DX: E83.40 Disorders of magnesium metabolism, unspecified (principal); D64.9 Anemia, unspecified; I11.0 Hypertensive heart disease with heart failure; I50.9 Heart failure, unspecified
CPT/HCPCS: 36415; 80053; 83735; 85025; 93701; G0463

== ENCOUNTER → 2019-06-23 | Outpatient (CLI) | payer MEDICAID ==
[~2019-06-23] MED LIST changes: +CYANOCOBALAMIN (B-12) 1000 MCG/1 ML VIAL IM ONE; +CYANOCOBALAMIN (B-12) 1000 MCG/1 ML VIAL ONE; -diphenhdrAMINE HCL 25 MG CAP PO ONE
[2019-06-23 08:45] VITALS: BP 106/65
[2019-06-23 10:00] VITALS: BP 99/62
--- NOTE | 2019-06-23 10:00 | NUR ---
IN FOR PAH FOLLOWUP ON 4 LPM OXYGEN. CONSULTED WITH JAZLYN SAPP. NO MEDICATION CHANGE AT THIS TIME. MEDICATION ADMINISTRATION VIT B12 IM AT 0945 Addendum: 06/23/19 at 1410 by Radha Wagner RN RN B12 IM L deltoid
== END | disposition home or self-care (01) ==
LOC: CHF HDHVI 08:36
PROVIDERS: ATTEND Internal Medicine
DX: I27.21 Secondary pulmonary arterial hypertension (principal); I11.0 Hypertensive heart disease with heart failure; I50.42 Chronic combined systolic (congestive) and diastolic (congestive) heart failure; I25.10 Atherosclerotic heart disease of native coronary artery without angina pectoris; I42.9 Cardiomyopathy, unspecified; J44.9 Chronic obstructive pulmonary disease, unspecified; E78.5 Hyperlipidemia, unspecified; E11.9 Type 2 diabetes mellitus without complications; E78.00 Pure hypercholesterolemia, unspecified; Z79.82 Long term (current) use of aspirin; Z79.4 Long term (current) use of insulin; Z79.891 Long term (current) use of opiate analgesic; Z79.899 Other long term (current) drug therapy; Z87.891 Personal history of nicotine dependence
CPT/HCPCS: 96372; G0463; J3420

== ENCOUNTER → 2019-06-30 | Outpatient (CLI) | payer MEDICAID ==
[~2019-06-30] MED LIST changes: +CHOLESTYRAMINE 4 GM POWDER ONE; +CHOLESTYRAMINE 4 GM POWDER PO ONE; -CYANOCOBALAMIN (B-12) 1000 MCG/1 ML VIAL IM ONE; -CYANOCOBALAMIN (B-12) 1000 MCG/1 ML VIAL ONE; +MVI in SODIUM CHLORIDE 0.9% 1,000 ML IVB ONE; +MVI in SODIUM CHLORIDE 0.9% 1,010 ML ONE; +POTASSIUM CHL 10 Meq TABLET PO ONE; +POTASSIUM CHL 20 Meq TABLET PO ONE
--- NOTE | 2019-06-30 08:50 | NUR ---
CHF PT ARRIVED AT THE CHF CLINIC FOR WEEKLY THERAPY A/O X 3 VSS
--- NOTE | 2019-06-30 09:00 | NUR ---
Clinic Provider Clinic Provider updated orders received and noted
--- NOTE | 2019-06-30 09:20 | NUR ---
IV insertion IV access obtained, via clean sterile technique by inserting 22 gauge catheter at after attempt(s). IV secured properly. No trauma to site. Patient tolerated procedure well.
--- NOTE | 2019-06-30 09:35 | NUR ---
GI PT C/O BEING SICK LAST FEW DAYS, DIAHHREA AND DECRREASED APPETITE MVI BAG STARTED
[2019-06-30 10:01] LABS: Basophils # (auto) 0 uL; Basophils % (auto) 0.6 % (0.0-2.0); Eosinophils # (auto) 0.2 uL; Eosinophils % (auto) 2.2 % (0.0-7.0); Hematocrit 43.8 % (41.0-53.0); Hemoglobin 15.3 g/dL (13.5-17.5); Lymphocytes # (auto) 1.4 uL; Lymphocytes % (auto) 16.8 % (10.0-50.0); Mean Corpuscular Hemoglobin 31.6 pg (28.0-32.0); Mean Corpuscular Hgb Conc. 34.9 g/dL (32.0-36.0); Mean Corpuscular Volume 90.4 fL (80.0-100.0); Monocytes # (auto) 0.6 uL; Monocytes % (auto) 8.1 % (0.0-12.0); Neutrophils # (auto) 5.8 uL; Neutrophils % (auto) 72.3 % (37.0-80.0); Nucleated Red Blood Cells % 0.1 %; Platelet Count (auto) 216 10^3/uL (140-450); Red Blood Cells 4.85 10^6/uL (4.5-5.90); Red Cell Distribution Width 15.2 % (11.8-14.3); White Blood Cell 8.1 10^3/uL (4.4-10.8)
[2019-06-30 10:13] LABS: Calcium 8.5 mg/dL (8.5-10.1); Potassium 3.6 mmol/L (3.5-5.1)
[2019-06-30 10:16] LABS: Albumin 4.1 g/dL (3.4-5.0); BUN/Creatinine Ratio 15.8; Magnesium 2.1 mg/dL (1.6-2.6)
[2019-06-30 10:19] LABS: Bilirubin, Total 0.8 mg/dL (0.2-1.0); Total Protein 7.6 g/dL (6.4-8.2)
--- NOTE | 2019-06-30 12:05 | NUR ---
IV removal IV DC'd with sterile technique, catheter fully intact. Pressure dressing applied to site. Patient tolerated procedure well. Discharged with aftercare instructions per MD. NOTE:
[2019-06-30 12:10] VITALS: BP 109/63
--- NOTE | 2019-06-30 12:10 | NUR ---
Discharge Instructions See e-MAR for any mediations given with this visit. Patient education given on disease process. Patient verbalized understanding. Previous labs reviewed. Patient discharged in stable condition with after care instructions and follow up appointment. MEDS MVI IV [id number] CHOLESTYRAMINE PO POTASSIUM PO
== END | disposition home or self-care (01) ==
LOC: CHF HDHVI 08:54
PROVIDERS: ATTEND Internal Medicine
DX: I13.0 Hypertensive heart and chronic kidney disease with heart failure and stage 1 through stage 4 chronic kidney disease, or unspecified chronic kidney disease (principal); I50.42 Chronic combined systolic (congestive) and diastolic (congestive) heart failure; N18.2 Chronic kidney disease, stage 2 (mild); I25.10 Atherosclerotic heart disease of native coronary artery without angina pectoris; I27.21 Secondary pulmonary arterial hypertension; D64.9 Anemia, unspecified; J44.9 Chronic obstructive pulmonary disease, unspecified; E83.40 Disorders of magnesium metabolism, unspecified; R53.83 Other fatigue; R19.7 Diarrhea, unspecified; E78.5 Hyperlipidemia, unspecified; E66.9 Obesity, unspecified; E78.00 Pure hypercholesterolemia, unspecified; E11.9 Type 2 diabetes mellitus without complications; Z79.899 Other long term (current) drug therapy; Z79.82 Long term (current) use of aspirin; Z79.4 Long term (current) use of insulin; Z79.891 Long term (current) use of opiate analgesic; Z87.891 Personal history of nicotine dependence
CPT/HCPCS: 36415; 80053; 83036; 83735; 85025; 93701; 96365; 96366; G0463; J3411; J3475

== ENCOUNTER → 2019-07-07 | Outpatient (CLI) | payer MEDICAID ==
[~2019-07-07] VITALS: Ht 30.5 cm; Wt 102.5 kg
[~2019-07-07] MED LIST changes: -CHOLESTYRAMINE 4 GM POWDER ONE; -CHOLESTYRAMINE 4 GM POWDER PO ONE; -POTASSIUM CHL 10 Meq TABLET PO ONE; -POTASSIUM CHL 20 Meq TABLET PO ONE
--- NOTE | 2019-07-07 09:30 | NUR ---
IN TO CLINIC FOR PAH EVALUATION. REPORTS DIARRHEA AND NAUSEA PERSISTENT SINCE WEEKEND. NOTED TO HAVE DRY CRACKED ORAL MUCOSA. REVIEWED MEDICINES AND MEDICATION FOR STOMACH DISCOMFORT. CONTINUE PROTONIX ORDERED. CLINIC PROVIDER CONSULTED AND ORDERS RECIEVED.
--- NOTE | 2019-07-07 10:04 | NUR ---
IV insertion IV access obtained, via clean sterile technique by inserting 22 gauge catheter at after 3 ATTEMPTS BY 2 RNS . IV secured properly. No trauma to site. Patient tolerated procedure well.
[2019-07-07 10:05] VITALS: BP 110/70
[2019-07-07 11:00] VITALS: BP 110/69
[2019-07-07 12:00] VITALS: BP 103/70
--- NOTE | 2019-07-07 12:00 | NUR ---
UP TO VOID NEEDED. WITHOUT DISTRESS. VS WNL.
[2019-07-07 12:30] VITALS: BP 101/63
[2019-07-07 13:00] VITALS: BP 97/65
--- NOTE | 2019-07-07 13:15 | NUR ---
INFUSION COMPLETED. UP TO VOID. BP WNL. MUCOUS MEMBRANES MORE INTACT, APPEAR LESS DRY. PT REPORTS FEELING BETTER. NAUSEA RELIEVED ALTHOUGH NO NAUSEA MEDICATION ADMINISTERED.
[2019-07-07 13:28] VITALS: BP 107/68
--- NOTE | 2019-07-07 13:28 | NUR ---
IV SITE TO RIGHT HAND BENIGN AFTER DCD. OOCHAIR PRN TO VOID. VS WNL. OXYGEN IN USE AT 4 LPM. DISCHARGED TO SELF CARE IN NO DISTRESS OR DISCOMFORT.
== END | disposition home or self-care (01) ==
LOC: CHF HDHVI 09:01
PROVIDERS: ATTEND Internal Medicine
DX: I11.0 Hypertensive heart disease with heart failure (principal); I50.42 Chronic combined systolic (congestive) and diastolic (congestive) heart failure; R53.83 Other fatigue; E86.0 Dehydration; R11.0 Nausea; R06.00 Dyspnea, unspecified; I27.21 Secondary pulmonary arterial hypertension; I25.10 Atherosclerotic heart disease of native coronary artery without angina pectoris; J44.9 Chronic obstructive pulmonary disease, unspecified; E78.5 Hyperlipidemia, unspecified; E78.00 Pure hypercholesterolemia, unspecified; E11.9 Type 2 diabetes mellitus without complications; Z79.899 Other long term (current) drug therapy; Z79.82 Long term (current) use of aspirin; Z79.4 Long term (current) use of insulin; Z79.891 Long term (current) use of opiate analgesic; Z87.891 Personal history of nicotine dependence; Z99.81 Dependence on supplemental oxygen
CPT/HCPCS: 96365; 96366; G0463; J3411; J3475

== ENCOUNTER → 2019-07-14 | Outpatient (CLI) | payer MEDICAID ==
[~2019-07-14] MED LIST changes: -MVI in SODIUM CHLORIDE 0.9% 1,000 ML IVB ONE; -MVI in SODIUM CHLORIDE 0.9% 1,010 ML ONE
[2019-07-14 08:15] VITALS: BP 107/66
[2019-07-14 09:45] VITALS: BP 100/65
--- NOTE | 2019-07-14 09:45 | NUR ---
CHF CLINIC Discharge Instructions See e-MAR for any mediations given with this visit. Patient education given on disease process. Patient verbalized understanding. Previous labs reviewed. Patient discharged in stable condition with after care instructions and follow up appointment. NOTE CARDIODYNAMICS PERFORMED BY VEGA GUILLAUME AND REVIEWED WITH PATIENT BY ORTIZ SAPP.
[2019-07-14 12:51] LABS: Albumin 4.4 g/dL (3.4-5.0); Calcium 9.3 mg/dL (8.5-10.1)
[2019-07-14 12:53] LABS: % Iron Saturation 18.7 % (20-55)
[2019-07-14 12:57] LABS: BUN/Creatinine Ratio 17.2; Bilirubin, Total 0.8 mg/dL (0.2-1.0); Total Protein 7.8 g/dL (6.4-8.2); Uric Acid 6.1 mg/dL (3.5-7.2)
[2019-07-14 13:03] LABS: Basophils # (auto) 0 uL; Basophils % (auto) 0.5 % (0.0-2.0); Eosinophils # (auto) 0.2 uL; Eosinophils % (auto) 2.7 % (0.0-7.0); Hematocrit 46.9 % (41.0-53.0); Lymphocytes # (auto) 1.2 uL; Lymphocytes % (auto) 15.6 % (10.0-50.0); Mean Corpuscular Hemoglobin 31.4 pg (28.0-32.0); Mean Corpuscular Hgb Conc. 34.2 g/dL (32.0-36.0); Mean Corpuscular Volume 91.9 fL (80.0-100.0); Monocytes # (auto) 0.5 uL; Monocytes % (auto) 6.7 % (0.0-12.0); Neutrophils # (auto) 5.8 uL; Neutrophils % (auto) 74.5 % (37.0-80.0); Nucleated Red Blood Cells % 0.1 %; Platelet Count (auto) 227 10^3/uL (140-450); Red Blood Cells 5.11 10^6/uL (4.5-5.90); Red Cell Distribution Width 15.5 % (11.8-14.3); White Blood Cell 7.7 10^3/uL (4.4-10.8)
== END | disposition home or self-care (01) ==
LOC: CHF HDHVI 08:14
PROVIDERS: ATTEND Internal Medicine
DX: I13.0 Hypertensive heart and chronic kidney disease with heart failure and stage 1 through stage 4 chronic kidney disease, or unspecified chronic kidney disease (principal); I50.9 Heart failure, unspecified; N18.2 Chronic kidney disease, stage 2 (mild); E61.1 Iron deficiency; E78.5 Hyperlipidemia, unspecified; M10.9 Gout, unspecified; E66.9 Obesity, unspecified; K90.9 Intestinal malabsorption, unspecified
CPT/HCPCS: 36415; 80053; 80061; 82306; 83540; 83550; 83880; 84550; 85025; 93701; G0463

== ENCOUNTER → 2019-07-21 | Outpatient (CLI) | payer MEDICAID ==
[~2019-07-21] MED LIST changes: +CYANOCOBALAMIN (B-12) 1000 MCG/1 ML VIAL IM ONE; +CYANOCOBALAMIN (B-12) 1000 MCG/1 ML VIAL ONE
--- NOTE | 2019-07-21 08:30 | NUR ---
CHF PT ARRIVED AT CHF CLINIC FOR FOR F/U. DENIES HEART BURN AND NAUSEA NAD VOMITING. VITAMIN D LEVELS ARE INCREADING PT FEELS BETTER/ VSS
[2019-07-21 08:45] VITALS: BP 109/73
[2019-07-21 09:00] VITALS: BP 101/67
--- NOTE | 2019-07-21 09:00 | NUR ---
Discharge Instructions See e-MAR for any mediations given with this visit. Patient education given on disease process. Patient verbalized understanding. Previous labs reviewed. Patient discharged in stable condition with after care instructions and follow up appointment. Addendum: 07/21/19 at 1118 by BRONSON MAHAN RN [place] VITAMIN B12 IM
== END | disposition home or self-care (01) ==
LOC: CHF HDHVI 08:31
PROVIDERS: ATTEND Internal Medicine
DX: I27.21 Secondary pulmonary arterial hypertension (principal); R53.83 Other fatigue; I13.0 Hypertensive heart and chronic kidney disease with heart failure and stage 1 through stage 4 chronic kidney disease, or unspecified chronic kidney disease; I50.42 Chronic combined systolic (congestive) and diastolic (congestive) heart failure; N18.2 Chronic kidney disease, stage 2 (mild); I25.10 Atherosclerotic heart disease of native coronary artery without angina pectoris; J44.9 Chronic obstructive pulmonary disease, unspecified; I42.9 Cardiomyopathy, unspecified; K21.9 Gastro-esophageal reflux disease without esophagitis; E78.5 Hyperlipidemia, unspecified; E11.9 Type 2 diabetes mellitus without complications; E78.00 Pure hypercholesterolemia, unspecified; Z79.82 Long term (current) use of aspirin; Z79.4 Long term (current) use of insulin; Z79.891 Long term (current) use of opiate analgesic; E66.9 Obesity, unspecified; Z79.899 Other long term (current) drug therapy; Z87.891 Personal history of nicotine dependence
CPT/HCPCS: 96372; G0463; J3420

== ENCOUNTER → 2019-08-04 | Outpatient (CLI) | payer MEDICAID ==
[~2019-08-04] VITALS: Ht 30.5 cm; Wt 0.5 kg
[~2019-08-04] MED LIST changes: -CYANOCOBALAMIN (B-12) 1000 MCG/1 ML VIAL IM ONE; +CYANOCOBALAMIN 500 MCG TAB PO SCH
[2019-08-04 08:30] VITALS: BP 105/55
[2019-08-04 10:00] VITALS: BP 93/59
--- NOTE | 2019-08-04 10:00 | NUR ---
PT IN FOR PAH EVALUATION. PT IN PROCESS OF FOLLOWING A NEW REGIMEN FOR HOME AND FOR CARE OF PAH. PT TO BE REFERRED TO [facility] FOR CONSIDERATION FOR ADDITIONAL THERAPIES OR TREATMENTS TO FOLLOW. TEACHING AND EDUCATION DONE BY JAZLYN SAPP. PT DISCHARGED TO SELF CARE IN NMO DISTRESS OR DISCOMFORT WITH HOME OXYGEN IN USE AT 4 LPM. MEDICATION ADMINISTRATION VIT B12 1000 MCG IM TO LEFT DELTOID
[2019-08-04 12:32] LABS: Basophils # (auto) 0.1 uL; Basophils % (auto) 0.8 % (0.0-2.0); Eosinophils # (auto) 0.2 uL; Eosinophils % (auto) 3.4 % (0.0-7.0); Hematocrit 41.5 % (41.0-53.0); Lymphocytes # (auto) 1.2 uL; Lymphocytes % (auto) 18.4 % (10.0-50.0); Mean Corpuscular Hemoglobin 31.3 pg (28.0-32.0); Mean Corpuscular Hgb Conc. 33.8 g/dL (32.0-36.0); Mean Corpuscular Volume 92.4 fL (80.0-100.0); Monocytes # (auto) 0.5 uL; Monocytes % (auto) 7.7 % (0.0-12.0); Neutrophils # (auto) 4.4 uL; Neutrophils % (auto) 69.7 % (37.0-80.0); Platelet Count (auto) 180 10^3/uL (140-450); Red Blood Cells 4.49 10^6/uL (4.5-5.90); Red Cell Distribution Width 15.3 % (11.8-14.3); White Blood Cell 6.4 10^3/uL (4.4-10.8)
[2019-08-04 12:49] LABS: Calcium 8.4 mg/dL (8.5-10.1); Magnesium 2.3 mg/dL (1.6-2.6); Potassium 3.8 mmol/L (3.5-5.1)
== END | disposition home or self-care (01) ==
LOC: CHF HDHVI 08:44
PROVIDERS: ATTEND Internal Medicine
DX: I27.21 Secondary pulmonary arterial hypertension (principal); I13.0 Hypertensive heart and chronic kidney disease with heart failure and stage 1 through stage 4 chronic kidney disease, or unspecified chronic kidney disease; I50.42 Chronic combined systolic (congestive) and diastolic (congestive) heart failure; N18.2 Chronic kidney disease, stage 2 (mild); I25.10 Atherosclerotic heart disease of native coronary artery without angina pectoris; I42.9 Cardiomyopathy, unspecified; D64.9 Anemia, unspecified; E83.40 Disorders of magnesium metabolism, unspecified; R53.83 Other fatigue; K21.9 Gastro-esophageal reflux disease without esophagitis; E78.5 Hyperlipidemia, unspecified; E66.9 Obesity, unspecified; J44.9 Chronic obstructive pulmonary disease, unspecified; E78.00 Pure hypercholesterolemia, unspecified; E11.9 Type 2 diabetes mellitus without complications; Z79.82 Long term (current) use of aspirin; Z79.4 Long term (current) use of insulin; Z79.891 Long term (current) use of opiate analgesic; Z79.899 Other long term (current) drug therapy; Z87.891 Personal history of nicotine dependence; Z99.81 Dependence on supplemental oxygen
CPT/HCPCS: 36415; 80048; 83735; 85025; 96372; G0463; J3420

== ENCOUNTER → 2019-08-11 | Outpatient (CLI) | payer MEDICAID ==
[~2019-08-11] MED LIST changes: -CYANOCOBALAMIN (B-12) 1000 MCG/1 ML VIAL ONE; -CYANOCOBALAMIN 500 MCG TAB PO SCH
[2019-08-11 08:30] VITALS: BP 112/68
--- NOTE | 2019-08-11 08:30 | NUR ---
PT. TO PAH CLINIC FOR EVAL. AND TX. PT. HAVING MORE GOOD DAYS THAN BAD DAYS, WITH BREATHING OVERALL BETTER. PT. REMAINS ON 800MCG OF UPTRAVI, WITH B/P GREATER THAN 110 SYSTOLIC. SEENSG ASSESS.
[2019-08-11 10:30] VITALS: BP 114/70
--- NOTE | 2019-08-11 10:30 | NUR ---
Discharge Instructions See e-MAR for any mediations given with this visit. Patient education given on disease process. Patient verbalized understanding. Previous labs reviewed. Patient discharged in stable condition with after care instructions and follow up appointment. PT. TO RTC IN ONE WEEK AND BRING ALL PAPERWORK FROM [facility].
== END | disposition home or self-care (01) ==
LOC: CHF HDHVI 08:31
PROVIDERS: ATTEND Internal Medicine
DX: I27.21 Secondary pulmonary arterial hypertension (principal); I11.0 Hypertensive heart disease with heart failure; I50.9 Heart failure, unspecified
CPT/HCPCS: G0463

== ENCOUNTER → 2019-08-18 | Outpatient (CLI) | payer MEDICAID ==
[~2019-08-18] MED LIST changes: +CYANOCOBALAMIN (B-12) 1000 MCG/1 ML VIAL IM ONE; +CYANOCOBALAMIN (B-12) 1000 MCG/1 ML VIAL ONE; +FUROSEMIDE 40 MG/4 ML VIAL IV ONE; +FUROSEMIDE 40 MG/4 ML VIAL ONE; +POTASSIUM CHL 10 Meq TABLET PO ONE; +POTASSIUM CHL 20 Meq TABLET PO ONE
[2019-08-18 08:55] VITALS: BP 122/69
--- NOTE | 2019-08-18 08:55 | NUR ---
CHF PT ARRIVED AT THE CHF CLINIC FOR WEEKLY F/U, CARDIODYNAMICS DONE VSS. PT SVR INCREASED CARDIAC INDEX LOW
--- NOTE | 2019-08-18 10:00 | NUR ---
STATUS PT WEIGHT UP , UPDATED LASIX 40 MG IV GIVEN AND PT IS CURRENTLY ON ADEMPAS 2.5 MG PO TID, OPSUMIT 10 MG PO DAILY AND OPTRAVI 800 MG BID
[2019-08-18 10:50] VITALS: BP 106/59
--- NOTE | 2019-08-18 10:50 | NUR ---
Discharge Instructions See e-MAR for any mediations given with this visit. Patient education given on disease process. Patient verbalized understanding. Previous labs reviewed. Patient discharged in stable condition with after care instructions and follow up appointment. MEDICATIONS LASIX IVP POTASSIUM PO VITAMIN B12 IM Addendum: 08/18/19 at 1413 by BRONSON LEBRON. SENAIT STALEY UPDATED PT ON CARDIODYNAMICS PT VERBALIZED UNDERSTANDING Addendum: 08/18/19 at 1652 by BRONSON LEBRON. SENAIT STALEY PT GIVEN POTASSIUM 20 MEQ PO
[2019-08-18 12:30] LABS: Basophils # (auto) 0.1 uL; Basophils % (auto) 0.7 % (0.0-2.0); Eosinophils # (auto) 0.2 uL; Hematocrit 49.6 % (41.0-53.0); Hemoglobin 16.4 g/dL (13.5-17.5); Lymphocytes # (auto) 1.4 uL; Lymphocytes % (auto) 17.3 % (10.0-50.0); Mean Corpuscular Hemoglobin 31.1 pg (28.0-32.0); Mean Corpuscular Hgb Conc. 33.1 g/dL (32.0-36.0); Mean Corpuscular Volume 93.9 fL (80.0-100.0); Monocytes # (auto) 0.6 uL; Neutrophils # (auto) 5.7 uL; Nucleated Red Blood Cells % 0.1 %; Platelet Count (auto) 250 10^3/uL (140-450); Red Blood Cells 5.28 10^6/uL (4.5-5.90)
[2019-08-18 12:54] LABS: BUN/Creatinine Ratio 17.6; Calcium 9.1 mg/dL (8.5-10.1); Magnesium 2.7 mg/dL (1.6-2.6)
== END | disposition home or self-care (01) ==
LOC: CHF HDHVI 09:02
PROVIDERS: ATTEND Internal Medicine
DX: D51.9 Vitamin B12 deficiency anemia, unspecified (principal); D64.9 Anemia, unspecified; E83.49 Other disorders of magnesium metabolism; I13.0 Hypertensive heart and chronic kidney disease with heart failure and stage 1 through stage 4 chronic kidney disease, or unspecified chronic kidney disease; N18.2 Chronic kidney disease, stage 2 (mild); E11.22 Type 2 diabetes mellitus with diabetic chronic kidney disease; I50.22 Chronic systolic (congestive) heart failure; I27.21 Secondary pulmonary arterial hypertension; I25.10 Atherosclerotic heart disease of native coronary artery without angina pectoris; J44.9 Chronic obstructive pulmonary disease, unspecified; K21.9 Gastro-esophageal reflux disease without esophagitis; E78.5 Hyperlipidemia, unspecified; E66.9 Obesity, unspecified; E78.00 Pure hypercholesterolemia, unspecified; M10.9 Gout, unspecified; Z99.81 Dependence on supplemental oxygen; Z79.82 Long term (current) use of aspirin; Z79.4 Long term (current) use of insulin; Z79.891 Long term (current) use of opiate analgesic; Z79.899 Other long term (current) drug therapy; Z87.891 Personal history of nicotine dependence
CPT/HCPCS: 36415; 80048; 82607; 83735; 83880; 85025; 93701; 96372; 96374; G0463; J1940; J3420

== ENCOUNTER → 2019-08-23 | Outpatient (CLI) | payer MEDICAID ==
[~2019-08-23] VITALS: Ht 30.5 cm; Wt 103.9 kg
[~2019-08-23] MED LIST changes: -CYANOCOBALAMIN (B-12) 1000 MCG/1 ML VIAL IM ONE; -CYANOCOBALAMIN (B-12) 1000 MCG/1 ML VIAL ONE; +FUROSEMIDE 20 MG/2 ML VIAL IV ONE; +FUROSEMIDE 20 MG/2 ML VIAL ONE; -FUROSEMIDE 40 MG/4 ML VIAL IV ONE; -FUROSEMIDE 40 MG/4 ML VIAL ONE
[2019-08-23 08:30] VITALS: BP 117/88
--- NOTE | 2019-08-23 08:30 | NUR ---
CHF PT ARRIVED AT THE CHF CLINIC FOR WEEKLY FOLLOW UP AND TX. PT A/O X 4 0 DISTRESS VSS/
[2019-08-23 09:10] VITALS: BP 127/74
--- NOTE | 2019-08-23 09:10 | NUR ---
Discharge Instructions See e-MAR for any mediations given with this visit. Patient education given on disease process. Patient verbalized understanding. Previous labs reviewed. Patient discharged in stable condition with after care instructions and follow up appointment. MEDICATIONS LASIV IV POTASSIUM PO INCREASED UPTRAVI TO 1000 MG BID 8000 MCG AM/1000 MCG PM
== END | disposition home or self-care (01) ==
LOC: CHF HDHVI 08:35
PROVIDERS: ATTEND Internal Medicine
DX: I27.21 Secondary pulmonary arterial hypertension (principal); I13.0 Hypertensive heart and chronic kidney disease with heart failure and stage 1 through stage 4 chronic kidney disease, or unspecified chronic kidney disease; E11.22 Type 2 diabetes mellitus with diabetic chronic kidney disease; N18.2 Chronic kidney disease, stage 2 (mild); I50.42 Chronic combined systolic (congestive) and diastolic (congestive) heart failure; I25.10 Atherosclerotic heart disease of native coronary artery without angina pectoris; J44.9 Chronic obstructive pulmonary disease, unspecified; R94.4 Abnormal results of kidney function studies; E87.6 Hypokalemia; E78.00 Pure hypercholesterolemia, unspecified; K21.9 Gastro-esophageal reflux disease without esophagitis; E78.5 Hyperlipidemia, unspecified; E66.9 Obesity, unspecified; Z79.82 Long term (current) use of aspirin; Z79.4 Long term (current) use of insulin; Z79.891 Long term (current) use of opiate analgesic; Z79.899 Other long term (current) drug therapy; Z87.891 Personal history of nicotine dependence; Z99.81 Dependence on supplemental oxygen
CPT/HCPCS: 36415; 82565; 84132; 84520; 96374; G0463; J1940

== ENCOUNTER → 2019-08-25 | Outpatient (CLI) | payer MEDICAID ==
[~2019-08-25] MED LIST changes: -FUROSEMIDE 20 MG/2 ML VIAL IV ONE; -FUROSEMIDE 20 MG/2 ML VIAL ONE; +FUROSEMIDE 40 MG/4 ML VIAL IV ONE; +FUROSEMIDE 40 MG/4 ML VIAL ONE; -POTASSIUM CHL 20 Meq TABLET PO ONE
[2019-08-25 09:00] VITALS: BP 110/70
[2019-08-25 11:13] VITALS: BP 116/73
--- NOTE | 2019-08-25 11:13 | NUR ---
CHF CLINIC Discharge Instructions See e-MAR for any mediations given with this visit. Patient education given on disease process. Patient verbalized understanding. Previous labs reviewed. Patient discharged in stable condition with after care instructions and follow up appointment. NOTE LASIX IVP ADMIN BY JAZLYN SAPP POTASSIUM PO ADMIN BY JAZLYN SAPP ARGINETIX SAMPLE GIVEN VIT D SPRAY SAMPLE GIVEN, 5000U BID
== END | disposition home or self-care (01) ==
LOC: CHF HDHVI 09:12
PROVIDERS: ATTEND Internal Medicine
DX: I27.21 Secondary pulmonary arterial hypertension (principal); I13.0 Hypertensive heart and chronic kidney disease with heart failure and stage 1 through stage 4 chronic kidney disease, or unspecified chronic kidney disease; E11.22 Type 2 diabetes mellitus with diabetic chronic kidney disease; I50.42 Chronic combined systolic (congestive) and diastolic (congestive) heart failure; N18.2 Chronic kidney disease, stage 2 (mild); I25.10 Atherosclerotic heart disease of native coronary artery without angina pectoris; J44.9 Chronic obstructive pulmonary disease, unspecified; K21.9 Gastro-esophageal reflux disease without esophagitis; E78.00 Pure hypercholesterolemia, unspecified; E78.5 Hyperlipidemia, unspecified; E66.9 Obesity, unspecified; Z79.82 Long term (current) use of aspirin; Z79.4 Long term (current) use of insulin; Z79.891 Long term (current) use of opiate analgesic; Z79.899 Other long term (current) drug therapy; Z87.891 Personal history of nicotine dependence; Z99.81 Dependence on supplemental oxygen
CPT/HCPCS: 82962; 96374; G0463; J1940

== ENCOUNTER → 2019-08-30 | Outpatient (CLI) | payer MEDICAID ==
[~2019-08-30] MED LIST changes: -FUROSEMIDE 40 MG/4 ML VIAL IV ONE; -FUROSEMIDE 40 MG/4 ML VIAL ONE; -POTASSIUM CHL 10 Meq TABLET PO ONE
[2019-08-30 12:10] LABS: Basophils # (auto) 0.1 uL; Basophils % (auto) 0.8 % (0.0-2.0); Eosinophils # (auto) 0.2 uL; Eosinophils % (auto) 2.3 % (0.0-7.0); Hematocrit 46.7 % (41.0-53.0); Hemoglobin 15.6 g/dL (13.5-17.5); Lymphocytes # (auto) 1.4 uL; Lymphocytes % (auto) 15.7 % (10.0-50.0); Mean Corpuscular Hemoglobin 30.9 pg (28.0-32.0); Mean Corpuscular Hgb Conc. 33.3 g/dL (32.0-36.0); Mean Corpuscular Volume 92.9 fL (80.0-100.0); Monocytes # (auto) 0.6 uL; Monocytes % (auto) 6.6 % (0.0-12.0); Neutrophils # (auto) 6.5 uL; Neutrophils % (auto) 74.6 % (37.0-80.0); Nucleated Red Blood Cells % 0.3 %; Platelet Count (auto) 209 10^3/uL (140-450); Red Blood Cells 5.03 10^6/uL (4.5-5.90); Red Cell Distribution Width 14.8 % (11.8-14.3); White Blood Cell 8.6 10^3/uL (4.4-10.8)
[2019-08-30 12:31] LABS: Potassium 3.9 mmol/L (3.5-5.1)
[2019-08-30 12:40] VITALS: BP 117/78
--- NOTE | 2019-08-30 12:40 | NUR ---
Discharge Instructions See e-MAR for any mediations given with this visit. Patient education given on disease process. Patient verbalized understanding. Previous labs reviewed. Patient discharged in stable condition with after care instructions and follow up appointment. NOTE PATIENT COMPLAINTS OF DIZZINESS. BLOOD SUGAR CHECKED BY SUSAN GUILLAUME. 61MG/DL. PROVIDED WITH ENSURE DRINK. RECHECKED BLOOD SUGAR 68MGDL. PROVIDED WITH ANOTHER ENSURE DRINK AND SENT HOME WITH EXTRA ENSURES. INSTRUCTED TO RECHECK BLOOD SUGAR AT HOME.
[2019-08-30 12:42] LABS: Albumin 4.2 g/dL (3.4-5.0); BUN/Creatinine Ratio 19.4; Bilirubin, Total 0.6 mg/dL (0.2-1.0); Calcium 8.9 mg/dL (8.5-10.1); Total Protein 7.9 g/dL (6.4-8.2)
== END | disposition home or self-care (01) ==
LOC: CHF HDHVI 09:04
PROVIDERS: ATTEND Internal Medicine
DX: D64.9 Anemia, unspecified (principal); K90.9 Intestinal malabsorption, unspecified; I11.0 Hypertensive heart disease with heart failure; I50.9 Heart failure, unspecified; E11.9 Type 2 diabetes mellitus without complications; E16.2 Hypoglycemia, unspecified; I27.21 Secondary pulmonary arterial hypertension
CPT/HCPCS: 36415; 80053; 82306; 82962; 85025; G0463

== ENCOUNTER → 2019-09-01 | Outpatient (CLI) | payer MEDICAID ==
[~2019-09-01] MED LIST changes: +FUROSEMIDE 20 MG/2 ML VIAL IV ONE; +FUROSEMIDE 20 MG/2 ML VIAL ONE; +FUROSEMIDE 40 MG/4 ML VIAL ONE; +POTASSIUM CHL 10 Meq TABLET PO ONE; +SODIUM CHLORIDE 0.9% 75 ML IV ONE
--- NOTE | 2019-09-01 08:45 | NUR ---
PAH PT IN CLINIC FOR WEEKLY FOLLOW UP AND TX. PT A/O X 4 0 DISTRESS VSS.
--- NOTE | 2019-09-01 09:15 | NUR ---
IV insertion IV access obtained, via clean sterile technique by inserting 22 gauge catheter at after attempt(s). IV secured properly. No trauma to site. Patient tolerated procedure well.
--- NOTE | 2019-09-01 10:38 | NUR ---
Discharge Instructions See e-MAR for any mediations given with this visit. Patient education given on disease process. Patient verbalized understanding. Previous labs reviewed. Patient discharged in stable condition with after care instructions and follow up appointment. MEDICATIONS LASIX IV POTASSIUM PO PT TO RETURN TO CLINIC ON THURSDAY FOR 6MWT Addendum: 09/01/19 at 1118 by BRONSON MAHAN RN AR PT LEFT AT 1041
--- NOTE | 2019-09-01 10:40 | NUR ---
IV removal IV DC'd with sterile technique, catheter fully intact. Pressure dressing applied to site. Patient tolerated procedure well. Discharged with aftercare instructions per MD. NOTE:
[2019-09-01 10:41] VITALS: BP 118/67
== END | disposition home or self-care (01) ==
LOC: CHF HDHVI 09:03
PROVIDERS: ATTEND Internal Medicine
DX: I27.21 Secondary pulmonary arterial hypertension (principal); I13.0 Hypertensive heart and chronic kidney disease with heart failure and stage 1 through stage 4 chronic kidney disease, or unspecified chronic kidney disease; E11.22 Type 2 diabetes mellitus with diabetic chronic kidney disease; N18.2 Chronic kidney disease, stage 2 (mild); I50.42 Chronic combined systolic (congestive) and diastolic (congestive) heart failure; I25.10 Atherosclerotic heart disease of native coronary artery without angina pectoris; I42.9 Cardiomyopathy, unspecified; J44.9 Chronic obstructive pulmonary disease, unspecified; K21.9 Gastro-esophageal reflux disease without esophagitis; E78.5 Hyperlipidemia, unspecified; E78.00 Pure hypercholesterolemia, unspecified; E66.9 Obesity, unspecified; Z79.899 Other long term (current) drug therapy; Z87.891 Personal history of nicotine dependence; Z79.4 Long term (current) use of insulin; Z79.891 Long term (current) use of opiate analgesic; Z79.82 Long term (current) use of aspirin; Z99.81 Dependence on supplemental oxygen
CPT/HCPCS: 96365; G0463; J1940

== ENCOUNTER → 2019-09-06 | Outpatient (CLI) | payer MEDICAID ==
[~2019-09-06] MED LIST changes: +BUMETANIDE 1mg/4ml VIAL (0.25mg/ml) ONE; +BUMETANIDE 2.5mg/10ml (0.25 mg/ml) INJ IV ONE; -FUROSEMIDE 20 MG/2 ML VIAL IV ONE; -FUROSEMIDE 20 MG/2 ML VIAL ONE; -FUROSEMIDE 40 MG/4 ML VIAL ONE; -SODIUM CHLORIDE 0.9% 75 ML IV ONE; +TESTOSTERONE CYPIONATE 200 MG/ML 1ML VIAL IM ONE
[2019-09-06 08:55] VITALS: BP 108/69
[2019-09-06 11:33] VITALS: BP 100/70
--- NOTE | 2019-09-06 11:33 | NUR ---
CHF CLINIC Discharge Instructions See e-MAR for any mediations given with this visit. Patient education given on disease process. Patient verbalized understanding. Previous labs reviewed. Patient discharged in stable condition with after care instructions and follow up appointment. NOTE BUMEX IVP ADMIN BY ORTIZ SAPP POTASSIUM PO ADMIN BY ORTIZ SAPP 6MWT PATIENT DOWN 45M FROM LAST TEST. PATIENT OUTPUT 4X TO RESTROOM.
[2019-09-06 12:11] LABS: Basophils # (auto) 0.1 uL; Basophils % (auto) 0.6 % (0.0-2.0); Eosinophils # (auto) 0.2 uL; Eosinophils % (auto) 1.9 % (0.0-7.0); Hematocrit 48.2 % (41.0-53.0); Hemoglobin 16.4 g/dL (13.5-17.5); Lymphocytes # (auto) 1.3 uL; Mean Corpuscular Hemoglobin 31.2 pg (28.0-32.0); Mean Corpuscular Volume 91.8 fL (80.0-100.0); Monocytes # (auto) 0.5 uL; Monocytes % (auto) 5.8 % (0.0-12.0); Neutrophils # (auto) 6.8 uL; Neutrophils % (auto) 76.7 % (37.0-80.0); Platelet Count (auto) 199 10^3/uL (140-450); Red Blood Cells 5.25 10^6/uL (4.5-5.90); Red Cell Distribution Width 14.8 % (11.8-14.3); White Blood Cell 8.9 10^3/uL (4.4-10.8)
[2019-09-06 12:12] LABS: Albumin 4.5 g/dL (3.4-5.0); BUN/Creatinine Ratio 21.5; Bilirubin, Total 0.7 mg/dL (0.2-1.0); Calcium 9.5 mg/dL (8.5-10.1); Magnesium 2.5 mg/dL (1.6-2.6); Total Protein 8.6 g/dL (6.4-8.2)
== END | disposition home or self-care (01) ==
LOC: CHF HDHVI 09:18
PROVIDERS: ATTEND Internal Medicine
DX: I27.21 Secondary pulmonary arterial hypertension (principal); I13.0 Hypertensive heart and chronic kidney disease with heart failure and stage 1 through stage 4 chronic kidney disease, or unspecified chronic kidney disease; E11.22 Type 2 diabetes mellitus with diabetic chronic kidney disease; N18.2 Chronic kidney disease, stage 2 (mild); I50.42 Chronic combined systolic (congestive) and diastolic (congestive) heart failure; I25.10 Atherosclerotic heart disease of native coronary artery without angina pectoris; I42.9 Cardiomyopathy, unspecified; E83.40 Disorders of magnesium metabolism, unspecified; D64.9 Anemia, unspecified; R53.83 Other fatigue; J44.9 Chronic obstructive pulmonary disease, unspecified; K21.9 Gastro-esophageal reflux disease without esophagitis; E78.5 Hyperlipidemia, unspecified; E78.00 Pure hypercholesterolemia, unspecified; E66.9 Obesity, unspecified; Z79.82 Long term (current) use of aspirin; Z79.4 Long term (current) use of insulin; Z79.891 Long term (current) use of opiate analgesic; Z87.891 Personal history of nicotine dependence; Z79.899 Other long term (current) drug therapy; Z99.81 Dependence on supplemental oxygen
CPT/HCPCS: 36415; 80053; 83735; 85025; 94618; 96374; G0463; J3490

== ENCOUNTER → 2019-09-08 | Outpatient (CLI) | payer MEDICAID ==
[~2019-09-08] MED LIST changes: -BUMETANIDE 1mg/4ml VIAL (0.25mg/ml) ONE; -BUMETANIDE 2.5mg/10ml (0.25 mg/ml) INJ IV ONE; -POTASSIUM CHL 10 Meq TABLET PO ONE
[2019-09-08 08:15] VITALS: BP 113/76
--- NOTE | 2019-09-08 08:15 | NUR ---
PT INTO CHF CLINIC FOR PAH TX/EVAL. PT ON 4 L NC O2, VSS. Addendum: 09/08/19 at 1004 by SUSAN GREENBERG RN PT A&OX4. PT EXPRESSES INCREASED FATIGUE. WILL CONTINUE TO MONITOR.
[2019-09-08 09:44] VITALS: BP 114/73
--- NOTE | 2019-09-08 09:44 | NUR ---
Discharge Instructions See e-MAR for any mediations given with this visit. Patient education given on disease process by Chacho SAPP. Patient verbalized understanding. Previous labs reviewed. Patient discharged in stable condition with after care instructions and follow up appointment. NOTE: TESTOSTERONE IM RUQ GLUT GIVEN BY BRONSON SAPP
== END | disposition home or self-care (01) ==
LOC: CHF HDHVI 08:27
PROVIDERS: ATTEND Internal Medicine
DX: I27.21 Secondary pulmonary arterial hypertension (principal); E29.1 Testicular hypofunction; I13.0 Hypertensive heart and chronic kidney disease with heart failure and stage 1 through stage 4 chronic kidney disease, or unspecified chronic kidney disease; E11.22 Type 2 diabetes mellitus with diabetic chronic kidney disease; N18.2 Chronic kidney disease, stage 2 (mild); I50.42 Chronic combined systolic (congestive) and diastolic (congestive) heart failure; I25.10 Atherosclerotic heart disease of native coronary artery without angina pectoris; R53.83 Other fatigue; I05.9 Rheumatic mitral valve disease, unspecified; I42.9 Cardiomyopathy, unspecified; J44.9 Chronic obstructive pulmonary disease, unspecified; Z99.81 Dependence on supplemental oxygen; Z79.82 Long term (current) use of aspirin; Z79.4 Long term (current) use of insulin; Z79.891 Long term (current) use of opiate analgesic; Z87.891 Personal history of nicotine dependence; Z79.899 Other long term (current) drug therapy
CPT/HCPCS: 96372; G0463; J1071

== ENCOUNTER → 2019-09-15 | Outpatient (CLI) | payer MEDICAID ==
[~2019-09-15] MED LIST changes: -TESTOSTERONE CYPIONATE 200 MG/ML 1ML VIAL IM ONE
[2019-09-15 08:43] VITALS: BP 107/65
--- NOTE | 2019-09-15 08:43 | NUR ---
CHF PT ARRIVED AT THE CHF CLINIC FOR TX AND EVAL. PT EXPRESSES THAT HE IS MORE TIRED AND DIZZY BUT NOT DIZZY BEFORE . LABS ORDERED BY PRIMARY PHYSICIAN, DRAWN. VSS
--- NOTE | 2019-09-15 09:27 | NUR ---
CARDIODYNAMICS COMPLETED BY VEGA SAPP REVIEWED BY BRONSON SAPP
[2019-09-15 09:40] VITALS: BP 104/67
--- NOTE | 2019-09-15 09:40 | NUR ---
Discharge Instructions See e-MAR for any mediations given with this visit. Patient education given on disease process. Patient verbalized understanding. Previous labs reviewed. Patient discharged in stable condition with after care instructions and follow up appointment. CARDIODYNAMICS COMPLETED BY VEGA SAPP REVIEWED BY JAZLYN SAPP
[2019-09-15 12:01] LABS: Basophils # (auto) 0 uL; Basophils % (auto) 0.4 % (0.0-2.0); Eosinophils # (auto) 0.2 uL; Eosinophils % (auto) 1.9 % (0.0-7.0); Hematocrit 46.8 % (41.0-53.0); Hemoglobin 15.8 g/dL (13.5-17.5); Lymphocytes # (auto) 1.3 uL; Mean Corpuscular Hemoglobin 31.2 pg (28.0-32.0); Mean Corpuscular Hgb Conc. 33.8 g/dL (32.0-36.0); Mean Corpuscular Volume 92.1 fL (80.0-100.0); Monocytes # (auto) 0.5 uL; Monocytes % (auto) 6.3 % (0.0-12.0); Neutrophils % (auto) 75.4 % (37.0-80.0); Nucleated Red Blood Cells % 0.1 %; Platelet Count (auto) 232 10^3/uL (140-450); Red Blood Cells 5.08 10^6/uL (4.5-5.90); Red Cell Distribution Width 15.1 % (11.8-14.3)
[2019-09-15 12:15] LABS: % Iron Saturation 14.6 % (20-55)
[2019-09-15 12:25] LABS: Albumin 4.2 g/dL (3.4-5.0); BUN/Creatinine Ratio 14.4; Bilirubin, Total 0.6 mg/dL (0.2-1.0); Calcium 9.1 mg/dL (8.5-10.1); Total Protein 8.1 g/dL (6.4-8.2); Uric Acid 5.6 mg/dL (3.5-7.2)
== END | disposition home or self-care (01) ==
LOC: CHF HDHVI 08:46
PROVIDERS: ATTEND Internal Medicine
DX: M10.9 Gout, unspecified (principal); R73.01 Impaired fasting glucose; E66.9 Obesity, unspecified; N18.2 Chronic kidney disease, stage 2 (mild); I11.0 Hypertensive heart disease with heart failure; I50.9 Heart failure, unspecified; R53.83 Other fatigue; I27.21 Secondary pulmonary arterial hypertension
CPT/HCPCS: 36415; 80053; 80061; 82306; 83540; 83550; 83880; 84550; 85025; 93701; G0463

== ENCOUNTER → 2019-09-20 | Outpatient (CLI) | payer MEDICAID ==
[~2019-09-20] MED LIST changes: +TESTOSTERONE CYPIONATE 200 MG/ML 1ML VIAL IM ONE
[2019-09-20 08:42] VITALS: BP 125/74
[2019-09-20 10:09] VITALS: BP 124/74
--- NOTE | 2019-09-20 10:09 | NUR ---
Discharge Instructions See e-MAR for any mediations given with this visit. Patient education given on disease process. Patient verbalized understanding. Previous labs reviewed. Patient discharged in stable condition with after care instructions and follow up appointment. IM TESTOSTERONE GIVEN IN R GLUT. ADMINISTERED BY MARKELL DAVIS. PATIENT INSTRUCTED TO INCREASE IRON SPRAY COMPLIANCE AND INCREASE DOSE TO 8 SPRAYS.
== END | disposition home or self-care (01) ==
LOC: CHF HDHVI 08:48
PROVIDERS: ATTEND Internal Medicine
DX: I13.0 Hypertensive heart and chronic kidney disease with heart failure and stage 1 through stage 4 chronic kidney disease, or unspecified chronic kidney disease (principal); E11.22 Type 2 diabetes mellitus with diabetic chronic kidney disease; N18.2 Chronic kidney disease, stage 2 (mild); I50.42 Chronic combined systolic (congestive) and diastolic (congestive) heart failure; I25.10 Atherosclerotic heart disease of native coronary artery without angina pectoris; I27.21 Secondary pulmonary arterial hypertension; I42.9 Cardiomyopathy, unspecified; E29.1 Testicular hypofunction; R53.83 Other fatigue; E66.9 Obesity, unspecified; J44.9 Chronic obstructive pulmonary disease, unspecified; K21.9 Gastro-esophageal reflux disease without esophagitis; Z79.82 Long term (current) use of aspirin; Z79.4 Long term (current) use of insulin; Z79.891 Long term (current) use of opiate analgesic; Z79.899 Other long term (current) drug therapy; Z87.891 Personal history of nicotine dependence; Z99.81 Dependence on supplemental oxygen
CPT/HCPCS: 96372; G0463; J1071

== ENCOUNTER → 2019-09-27 | Outpatient (CLI) | payer MEDICAID ==
[~2019-09-27] MED LIST changes: +KETOROLAC TROMETH 60MG/2ML VIAL IM ONE; +KETOROLAC TROMETH 60MG/2ML VIAL ONE; -TESTOSTERONE CYPIONATE 200 MG/ML 1ML VIAL IM ONE
[2019-09-27 08:41] VITALS: BP 111/68
[2019-09-27 10:15] VITALS: BP 115/69
--- NOTE | 2019-09-27 10:15 | NUR ---
Discharge Instructions See e-MAR for any mediations given with this visit. Patient education given on disease process. Patient verbalized understanding. Previous labs reviewed. Patient discharged in stable condition with after care instructions and follow up appointment. MEDICATIONS TORADOL IM CARDIODYNAMICS COMPLETED BY SAMSON GUILLAUME AND REVIEWED BY BRONSON SAPP. PT SHOWING IMPROVEMENT AND VERBALIZED UNDERSTANDING CXR COMPLETE FOR PRODUCTIVE COUGH AND MALASIE TORADOL GIVEN FOR LEFT SHOULDER PAIN AND PT VERBALIZED IMPROVEMENT 3/10 UPON DISCHARGE
[2019-09-27 12:15] LABS: BUN/Creatinine Ratio 14.4; Calcium 8.3 mg/dL (8.5-10.1); Magnesium 2.2 mg/dL (1.6-2.6)
[2019-09-27 12:19] LABS: Basophils # (auto) 0 uL; Basophils % (auto) 0.6 % (0.0-2.0); Eosinophils # (auto) 0.1 uL; Eosinophils % (auto) 1.4 % (0.0-7.0); Hematocrit 42.2 % (41.0-53.0); Hemoglobin 14.3 g/dL (13.5-17.5); Lymphocytes # (auto) 1.2 uL; Lymphocytes % (auto) 16.9 % (10.0-50.0); Mean Corpuscular Hemoglobin 31.5 pg (28.0-32.0); Mean Corpuscular Hgb Conc. 33.8 g/dL (32.0-36.0); Mean Corpuscular Volume 93.3 fL (80.0-100.0); Monocytes # (auto) 0.6 uL; Monocytes % (auto) 8.3 % (0.0-12.0); Neutrophils # (auto) 5.3 uL; Neutrophils % (auto) 72.8 % (37.0-80.0); Platelet Count (auto) 196 10^3/uL (140-450); Red Blood Cells 4.52 10^6/uL (4.5-5.90); Red Cell Distribution Width 15.3 % (11.8-14.3); White Blood Cell 7.3 10^3/uL (4.4-10.8)
== END | disposition home or self-care (01) ==
LOC: CHF HDHVI 09:02
PROVIDERS: ATTEND Internal Medicine
DX: I27.21 Secondary pulmonary arterial hypertension (principal); I13.0 Hypertensive heart and chronic kidney disease with heart failure and stage 1 through stage 4 chronic kidney disease, or unspecified chronic kidney disease; I50.42 Chronic combined systolic (congestive) and diastolic (congestive) heart failure; N18.2 Chronic kidney disease, stage 2 (mild); I25.10 Atherosclerotic heart disease of native coronary artery without angina pectoris; I42.9 Cardiomyopathy, unspecified; J44.9 Chronic obstructive pulmonary disease, unspecified; K21.9 Gastro-esophageal reflux disease without esophagitis; E83.40 Disorders of magnesium metabolism, unspecified; E78.00 Pure hypercholesterolemia, unspecified; E11.9 Type 2 diabetes mellitus without complications; E66.9 Obesity, unspecified; Z79.82 Long term (current) use of aspirin; Z79.4 Long term (current) use of insulin; Z79.891 Long term (current) use of opiate analgesic; Z87.891 Personal history of nicotine dependence; Z79.899 Other long term (current) drug therapy; Z99.81 Dependence on supplemental oxygen
CPT/HCPCS: 36415; 71046; 80048; 83735; 85025; 93701; 96372; G0463; J1885

== ENCOUNTER → 2019-09-29 | Outpatient (CLI) | payer MEDICAID ==
[~2019-09-29] MED LIST changes: +CYANOCOBALAMIN (B-12) 1000 MCG/1 ML VIAL IM ONE; +CYANOCOBALAMIN (B-12) 1000 MCG/1 ML VIAL ONE; -KETOROLAC TROMETH 60MG/2ML VIAL IM ONE; -KETOROLAC TROMETH 60MG/2ML VIAL ONE
[2019-09-29 08:23] VITALS: BP 112/69
--- NOTE | 2019-09-29 08:23 | NUR ---
CHF PT ARRIVED AT THE CHF CLINIC FOR TX AND FOLLOW UP. VSS PT A/O X 4 0 DISTRESS
[2019-09-29 09:00] VITALS: BP 101/66
--- NOTE | 2019-09-29 09:00 | NUR ---
Discharge Instructions See e-MAR for any mediations given with this visit. Patient education given on disease process. Patient verbalized understanding. Previous labs reviewed. Patient discharged in stable condition with after care instructions and follow up appointment. MEDICATIONS VITAMIN B12 IM LEFT DELTOID LOT # [id number] EXP 05/15 MED REC DONE WITH JAZLYN SAPP PT TO FOLLOW UP NEXT WEEK IN THE CLINIC
== END | disposition home or self-care (01) ==
LOC: CHF HDHVI 08:23
PROVIDERS: ATTEND Internal Medicine
DX: I13.0 Hypertensive heart and chronic kidney disease with heart failure and stage 1 through stage 4 chronic kidney disease, or unspecified chronic kidney disease (principal); I27.21 Secondary pulmonary arterial hypertension; I50.42 Chronic combined systolic (congestive) and diastolic (congestive) heart failure; R53.83 Other fatigue; I25.10 Atherosclerotic heart disease of native coronary artery without angina pectoris; N18.2 Chronic kidney disease, stage 2 (mild); K21.9 Gastro-esophageal reflux disease without esophagitis; E78.5 Hyperlipidemia, unspecified; E78.00 Pure hypercholesterolemia, unspecified; E11.22 Type 2 diabetes mellitus with diabetic chronic kidney disease; J44.9 Chronic obstructive pulmonary disease, unspecified; Z99.81 Dependence on supplemental oxygen; Z79.82 Long term (current) use of aspirin; Z79.4 Long term (current) use of insulin; Z79.891 Long term (current) use of opiate analgesic; Z79.899 Other long term (current) drug therapy; Z87.891 Personal history of nicotine dependence
CPT/HCPCS: 96372; G0463; J3420

== ENCOUNTER → 2019-10-04 | Outpatient (CLI) | payer MEDICAID ==
[~2019-10-04] MED LIST changes: -CYANOCOBALAMIN (B-12) 1000 MCG/1 ML VIAL IM ONE; -CYANOCOBALAMIN (B-12) 1000 MCG/1 ML VIAL ONE
[2019-10-04 08:56] VITALS: BP 111/71
[2019-10-04 10:13] VITALS: BP 102/64
--- NOTE | 2019-10-04 10:13 | NUR ---
Discharge Instructions See e-MAR for any mediations given with this visit. Patient education given on disease process. Patient verbalized understanding. Previous labs reviewed. Patient discharged in stable condition with after care instructions and follow up appointment. PT TO RETURN ON THURSDAY FOR MONITORING OF WEIGHT AND ADEMPAS MEDICATION
[2019-10-04 11:50] LABS: Potassium 4.4 mmol/L (3.5-5.1)
== END | disposition home or self-care (01) ==
LOC: CHF HDHVI 09:04
PROVIDERS: ATTEND Internal Medicine
DX: E87.6 Hypokalemia (principal); I27.21 Secondary pulmonary arterial hypertension; R60.9 Edema, unspecified; E11.9 Type 2 diabetes mellitus without complications; R94.4 Abnormal results of kidney function studies; Z79.899 Other long term (current) drug therapy
CPT/HCPCS: 36415; 82565; 83036; 84132; 84403; 84520; G0463

== ENCOUNTER → 2019-10-06 | Outpatient (CLI) | payer MEDICAID ==
[~2019-10-06] VITALS: Ht 30.5 cm; Wt 105.2 kg
[~2019-10-06] MED LIST changes: +KETOROLAC TROMETH 60MG/2ML VIAL IM ONE; +KETOROLAC TROMETH 60MG/2ML VIAL ONE
[2019-10-06 08:55] VITALS: BP 112/63
--- NOTE | 2019-10-06 08:55 | NUR ---
CHF PT AT THE CHF CLINIC FOR TX AND EVAL, AND LAB REVIEW. PT A/O X 4 0 DISTRESS VSS , PT IS C/O PAIN 7/ TO LEFT KNEE AND UPPER BACK. NO CHEST PAIN EXPRESSED
[2019-10-06 10:15] VITALS: BP 107/67
--- NOTE | 2019-10-06 11:18 | NUR ---
Discharge Instructions See e-MAR for any mediations given with this visit. Patient education given on disease process. Patient verbalized understanding. Previous labs reviewed. Patient discharged in stable condition with after care instructions and follow up appointment. PATIENT VOICED PAIN RELIEF WITH TORADOL /MEDICATIONS TORADOL IM LEFT GLUTE LOT # [id number] EXP
== END | disposition home or self-care (01) ==
LOC: CHF HDHVI 09:04
PROVIDERS: ATTEND Internal Medicine
DX: I13.0 Hypertensive heart and chronic kidney disease with heart failure and stage 1 through stage 4 chronic kidney disease, or unspecified chronic kidney disease (principal); I27.21 Secondary pulmonary arterial hypertension; N18.2 Chronic kidney disease, stage 2 (mild); R53.83 Other fatigue; I25.10 Atherosclerotic heart disease of native coronary artery without angina pectoris; I50.42 Chronic combined systolic (congestive) and diastolic (congestive) heart failure; K21.9 Gastro-esophageal reflux disease without esophagitis; E66.9 Obesity, unspecified; E78.00 Pure hypercholesterolemia, unspecified; E11.22 Type 2 diabetes mellitus with diabetic chronic kidney disease; E78.5 Hyperlipidemia, unspecified; Z79.899 Other long term (current) drug therapy; Z99.81 Dependence on supplemental oxygen; Z79.82 Long term (current) use of aspirin; Z79.4 Long term (current) use of insulin; Z79.891 Long term (current) use of opiate analgesic; Z87.891 Personal history of nicotine dependence
CPT/HCPCS: 96372; G0463; J1885

== ENCOUNTER → 2019-10-11 | Outpatient (CLI) | payer MEDICAID ==
[~2019-10-11] MED LIST changes: -KETOROLAC TROMETH 60MG/2ML VIAL IM ONE; -KETOROLAC TROMETH 60MG/2ML VIAL ONE; +MVI in SODIUM CHLORIDE 0.9% 1,010 ML ONE; +MVI in SODIUM CHLORIDE 0.9% 500 ML IVB ONE
[2019-10-11 09:00] VITALS: BP 111/68
[2019-10-11 11:30] VITALS: BP 116/49
[2019-10-11 12:34] LABS: Basophils # (auto) 0.1 uL; Basophils % (auto) 0.7 % (0.0-2.0); Eosinophils # (auto) 0.2 uL; Eosinophils % (auto) 2.2 % (0.0-7.0); Hematocrit 48.7 % (41.0-53.0); Hemoglobin 16.3 g/dL (13.5-17.5); Lymphocytes # (auto) 1.4 uL; Lymphocytes % (auto) 19.3 % (10.0-50.0); Mean Corpuscular Hemoglobin 30.9 pg (28.0-32.0); Mean Corpuscular Hgb Conc. 33.4 g/dL (32.0-36.0); Mean Corpuscular Volume 92.4 fL (80.0-100.0); Monocytes # (auto) 0.6 uL; Monocytes % (auto) 7.7 % (0.0-12.0); Neutrophils % (auto) 70.1 % (37.0-80.0); Nucleated Red Blood Cells % 0.2 %; Platelet Count (auto) 242 10^3/uL (140-450); Red Blood Cells 5.27 10^6/uL (4.5-5.90); Red Cell Distribution Width 15.1 % (11.8-14.3); White Blood Cell 7.2 10^3/uL (4.4-10.8)
[2019-10-11 12:43] LABS: BUN/Creatinine Ratio 13.3; Calcium 8.8 mg/dL (8.5-10.1); Magnesium 2.2 mg/dL (1.6-2.6); Potassium 4.1 mmol/L (3.5-5.1)
== END | disposition home or self-care (01) ==
LOC: CHF HDHVI 08:42
PROVIDERS: ATTEND Internal Medicine
DX: D64.9 Anemia, unspecified (principal); E86.0 Dehydration; I27.21 Secondary pulmonary arterial hypertension; E83.40 Disorders of magnesium metabolism, unspecified; I13.0 Hypertensive heart and chronic kidney disease with heart failure and stage 1 through stage 4 chronic kidney disease, or unspecified chronic kidney disease; I50.42 Chronic combined systolic (congestive) and diastolic (congestive) heart failure; N18.2 Chronic kidney disease, stage 2 (mild); J44.9 Chronic obstructive pulmonary disease, unspecified; E11.22 Type 2 diabetes mellitus with diabetic chronic kidney disease; E78.5 Hyperlipidemia, unspecified; E78.00 Pure hypercholesterolemia, unspecified; I25.10 Atherosclerotic heart disease of native coronary artery without angina pectoris; K21.9 Gastro-esophageal reflux disease without esophagitis; Z99.81 Dependence on supplemental oxygen; Z79.82 Long term (current) use of aspirin; Z79.4 Long term (current) use of insulin; Z79.891 Long term (current) use of opiate analgesic
CPT/HCPCS: 36415; 80048; 83735; 85025; 96365; 96366; G0463; J3411; J3475

== ENCOUNTER → 2019-10-13 | Outpatient (CLI) | payer MEDICAID ==
[~2019-10-13] MED LIST changes: +CYANOCOBALAMIN (B-12) 1000 MCG/1 ML VIAL IM ONE; +CYANOCOBALAMIN (B-12) 1000 MCG/1 ML VIAL ONE; -MVI in SODIUM CHLORIDE 0.9% 1,010 ML ONE; -MVI in SODIUM CHLORIDE 0.9% 500 ML IVB ONE
[2019-10-13 08:45] VITALS: BP 111/65
[2019-10-13 09:26] VITALS: BP 111/63
--- NOTE | 2019-10-13 09:26 | NUR ---
CHF Clinic Discharge Instructions See e-MAR for any mediations given with this visit. Patient education given on disease process. Patient verbalized understanding. Previous labs reviewed. Patient discharged in stable condition with after care instructions and follow up appointment IN ONE WEEK. NOTE B12 IM ADMIN BY SUSAN GUILLAUME. Addendum: 10/13/19 at 1056 by Radha Wagner RN RN B12 JEB Sarkar DELTOID
== END | disposition home or self-care (01) ==
LOC: CHF HDHVI 08:50
PROVIDERS: ATTEND Internal Medicine
DX: I27.21 Secondary pulmonary arterial hypertension (principal); I13.0 Hypertensive heart and chronic kidney disease with heart failure and stage 1 through stage 4 chronic kidney disease, or unspecified chronic kidney disease; E11.22 Type 2 diabetes mellitus with diabetic chronic kidney disease; N18.2 Chronic kidney disease, stage 2 (mild); I50.42 Chronic combined systolic (congestive) and diastolic (congestive) heart failure; I25.10 Atherosclerotic heart disease of native coronary artery without angina pectoris; I42.9 Cardiomyopathy, unspecified; R53.83 Other fatigue; J44.9 Chronic obstructive pulmonary disease, unspecified; E78.5 Hyperlipidemia, unspecified; K21.9 Gastro-esophageal reflux disease without esophagitis; E78.00 Pure hypercholesterolemia, unspecified; E66.9 Obesity, unspecified; Z79.899 Other long term (current) drug therapy; Z79.82 Long term (current) use of aspirin; Z79.4 Long term (current) use of insulin; Z79.891 Long term (current) use of opiate analgesic; Z99.81 Dependence on supplemental oxygen; Z87.891 Personal history of nicotine dependence
CPT/HCPCS: 96372; G0463; J3420

== ENCOUNTER → 2019-10-18 | Outpatient (CLI) | payer MEDICAID ==
[~2019-10-18] MED LIST changes: -CYANOCOBALAMIN (B-12) 1000 MCG/1 ML VIAL IM ONE; -CYANOCOBALAMIN (B-12) 1000 MCG/1 ML VIAL ONE; +MVI in SODIUM CHLORIDE 0.9% 1,000 ML IVB ONE; +MVI in SODIUM CHLORIDE 0.9% 1,010 ML ONE; +MVI in SODIUM CHLORIDE 0.9% 500 ML IVB ONE; +ONDANSETRON HCL 4 MG/2 ML VIAL IV ONE; +ONDANSETRON HCL 4 MG/2 ML VIAL ONE
[2019-10-18 08:56] VITALS: BP 123/73
--- NOTE | 2019-10-18 09:15 | NUR ---
IV insertion IV access obtained, via clean sterile technique by inserting 22 gauge catheter at after attempt(s). IV secured properly. No trauma to site. Patient tolerated procedure well.
--- NOTE | 2019-10-18 11:28 | NUR ---
IV removal IV DC'd with sterile technique, catheter fully intact. Pressure dressing applied to site. Patient tolerated procedure well. Discharged with aftercare instructions per MD. NOTE:
[2019-10-18 11:30] VITALS: BP 119/66
--- NOTE | 2019-10-18 11:30 | NUR ---
Discharge Instructions See e-MAR for any mediations given with this visit. Patient education given on disease process. Patient verbalized understanding. Previous labs reviewed. Patient discharged in stable condition with after care instructions and follow up appointment. MEDICATIONS MVI BAG [id number] ZOFRAN IVP PATIENT PROVIDED PRESCRIPTIONS FOR LOMOTIL, ZOFRAN AND PEPCID FOR NAUSEA VOMITING AND DIARRHEA
== END | disposition home or self-care (01) ==
LOC: CHF HDHVI 08:54
PROVIDERS: ATTEND Internal Medicine
DX: I27.21 Secondary pulmonary arterial hypertension (principal); R11.2 Nausea with vomiting, unspecified; I13.0 Hypertensive heart and chronic kidney disease with heart failure and stage 1 through stage 4 chronic kidney disease, or unspecified chronic kidney disease; E11.22 Type 2 diabetes mellitus with diabetic chronic kidney disease; N18.2 Chronic kidney disease, stage 2 (mild); I50.42 Chronic combined systolic (congestive) and diastolic (congestive) heart failure; J44.9 Chronic obstructive pulmonary disease, unspecified; K21.9 Gastro-esophageal reflux disease without esophagitis; I25.10 Atherosclerotic heart disease of native coronary artery without angina pectoris; I42.9 Cardiomyopathy, unspecified; E78.5 Hyperlipidemia, unspecified; E66.9 Obesity, unspecified; E78.00 Pure hypercholesterolemia, unspecified; Z99.81 Dependence on supplemental oxygen; Z79.82 Long term (current) use of aspirin; Z79.4 Long term (current) use of insulin; Z79.891 Long term (current) use of opiate analgesic; Z79.899 Other long term (current) drug therapy; Z87.891 Personal history of nicotine dependence
CPT/HCPCS: 96365; 96366; 96375; G0463; J2405; J3411; J3475

== ENCOUNTER → 2019-10-25 | Outpatient (CLI) | payer MEDICAID ==
[~2019-10-25] MED LIST changes: -MVI in SODIUM CHLORIDE 0.9% 1,000 ML IVB ONE; -MVI in SODIUM CHLORIDE 0.9% 1,010 ML ONE; -MVI in SODIUM CHLORIDE 0.9% 500 ML IVB ONE; -ONDANSETRON HCL 4 MG/2 ML VIAL IV ONE; -ONDANSETRON HCL 4 MG/2 ML VIAL ONE
[2019-10-25 09:00] VITALS: BP 130/63
[2019-10-25 09:15] VITALS: BP 134/76
[2019-10-25 09:30] VITALS: BP 96/64
[2019-10-25 10:00] VITALS: BP 113/62
--- NOTE | 2019-10-25 10:29 | NUR ---
PT WAS ONLY HERE FOR LABS CHARTED VITALS ON WRONG PATIENT
[2019-10-25 12:07] LABS: % Iron Saturation 16.7 % (20-55)
[2019-10-25 12:10] LABS: Potassium 4.1 mmol/L (3.5-5.1)
[2019-10-25 12:15] LABS: BUN/Creatinine Ratio 14.9; Calcium 9.6 mg/dL (8.5-10.1); Magnesium 2.5 mg/dL (1.6-2.6)
== END | disposition home or self-care (01) ==
LOC: CHF HDHVI 09:24
PROVIDERS: ATTEND Internal Medicine
DX: E83.40 Disorders of magnesium metabolism, unspecified (principal); R53.83 Other fatigue; I11.0 Hypertensive heart disease with heart failure; I50.9 Heart failure, unspecified
CPT/HCPCS: 36415; 80048; 83540; 83550; 83735

== ENCOUNTER → 2019-11-08 | Outpatient (CLI) | payer MEDICAID ==
[~2019-11-08] VITALS: Ht 30.5 cm; Wt 106.2 kg
[~2019-11-08] MED LIST changes: +ACETAMINOPHEN 500 MG TAB PO ONE; +CYANOCOBALAMIN (B-12) 1000 MCG/1 ML VIAL IM ONE; +CYANOCOBALAMIN (B-12) 1000 MCG/1 ML VIAL ONE; +FUROSEMIDE 20 MG/2 ML VIAL IV ONE; +FUROSEMIDE 20 MG/2 ML VIAL ONE; +MVI in SODIUM CHLORIDE 0.9% 1,010 ML ONE; +MVI in SODIUM CHLORIDE 0.9% 500 ML IVB ONE; +PROMETHAZINE HCL 25 MG/ML 1ML IV ONE; +PROMETHAZINE HCL 25 MG/ML 1ML ONE; +cefTRIAXone 1GM/50ML D5W 50 ML IV ONE
[2019-11-08 09:44] VITALS: BP 121/65
--- NOTE | 2019-11-08 09:44 | NUR ---
CHF PT ARRIVED TO THE CHF CLINIC NAUSEATED REPORTED VOMITING ON THE WAY HERE. COUGHING STRENUOSLY, UPDATED MD CLEMONS ORDERS RECEIVED AND NOTED
--- NOTE | 2019-11-08 10:15 | NUR ---
IV insertion IV access obtained, via clean sterile technique by inserting 22 gauge catheter at after attempt(s). IV secured properly. No trauma to site. Patient tolerated procedure well.
--- NOTE | 2019-11-08 11:00 | NUR ---
GI PT GIVEN PHENERGAN NAUSEA DECREASED TOLERATED WELL
[2019-11-08 11:11] LABS: Basophils # (auto) 0 uL; Basophils % (auto) 0.5 % (0.0-2.0); Eosinophils # (auto) 0.1 uL; Eosinophils % (auto) 1.1 % (0.0-7.0); Hematocrit 45.3 % (41.0-53.0); Hemoglobin 15.2 g/dL (13.5-17.5); Lymphocytes # (auto) 0.6 uL; Lymphocytes % (auto) 6.5 % (10.0-50.0); Mean Corpuscular Hgb Conc. 33.5 g/dL (32.0-36.0); Mean Corpuscular Volume 92.5 fL (80.0-100.0); Monocytes # (auto) 0.5 uL; Monocytes % (auto) 5.3 % (0.0-12.0); Neutrophils # (auto) 7.8 uL; Neutrophils % (auto) 86.6 % (37.0-80.0); Platelet Count (auto) 220 10^3/uL (140-450); Red Cell Distribution Width 15.4 % (11.8-14.3)
[2019-11-08 11:21] LABS: Albumin 4.3 g/dL (3.4-5.0); Calcium 9.5 mg/dL (8.5-10.1)
[2019-11-08 11:25] LABS: BUN/Creatinine Ratio 9.7; Total Protein 8.8 g/dL (6.4-8.2)
--- NOTE | 2019-11-08 11:30 | NUR ---
CXR LABS,UA,BLOOD CULTURES AND CHEST XRAY COMPLETE
--- NOTE | 2019-11-08 15:25 | NUR ---
IV removal IV DC'd with sterile technique, catheter fully intact. Pressure dressing applied to site. Patient tolerated procedure well. Discharged with aftercare instructions per MD. NOTE:
[2019-11-08 15:30] VITALS: BP 132/76
--- NOTE | 2019-11-08 15:30 | NUR ---
Discharge Instructions See eKeclon for any mediations given with this visit. Patient education given on disease process. Patient verbalized understanding. Previous labs reviewed. Patient discharged in stable condition with after care instructions and follow up appointment. MEDICATIONS LASIX IV ROCEPHIN IVPB [id number] PHENERGAN IVP TYLENOL PO MVI IV [id number] VITAMIN B12 IM LEFT DELTOID Addendum: 11/08/19 at 1757 by BRONSON LEBRON. SENAIT MS PATIENT DOING BETTER AFTER THE TX TODAY. MD CLEMONS AWARE PT TO START HIS DOXYCLINE IMMEDIATELY , DID NOT FILL PRESCRIPTION LAST VISIT. FOLLOW UP IN CLINIC THIS THURSDAY Addendum: 11/14/19 at 1300 by BRONSON LEBRON. SENAIT MS LASIX 20 MG IV GIVEN ON 11/08/19
[2019-11-08 16:06] LABS: Urine Blood Negative /uL (Negative); Urine Specific Gravity 1.022 (1.001-1.035)
== END | disposition home or self-care (01) ==
LOC: CHF HDHVI 09:52
PROVIDERS: ATTEND Internal Medicine
DX: I13.0 Hypertensive heart and chronic kidney disease with heart failure and stage 1 through stage 4 chronic kidney disease, or unspecified chronic kidney disease (principal); N18.2 Chronic kidney disease, stage 2 (mild); E11.22 Type 2 diabetes mellitus with diabetic chronic kidney disease; I50.42 Chronic combined systolic (congestive) and diastolic (congestive) heart failure; I25.10 Atherosclerotic heart disease of native coronary artery without angina pectoris; I27.21 Secondary pulmonary arterial hypertension; I42.9 Cardiomyopathy, unspecified; R11.0 Nausea; R50.9 Fever, unspecified; N39.0 Urinary tract infection, site not specified; J44.9 Chronic obstructive pulmonary disease, unspecified; K21.9 Gastro-esophageal reflux disease without esophagitis; E78.5 Hyperlipidemia, unspecified; E78.00 Pure hypercholesterolemia, unspecified; E66.9 Obesity, unspecified; Z79.82 Long term (current) use of aspirin; Z79.84 Long term (current) use of oral hypoglycemic drugs; Z79.891 Long term (current) use of opiate analgesic; Z79.899 Other long term (current) drug therapy; Z87.891 Personal history of nicotine dependence; Z99.81 Dependence on supplemental oxygen
CPT/HCPCS: 36415; 71046; 80053; 81003; 83605; 85025; 87040; 87086; 96365; 96366; 96368; 96372; 96375; G0463; J0696; J1940; J2550; J3411; J3420; J3475; 96367

== ENCOUNTER → 2019-11-15 | Outpatient (CLI) | payer MEDICAID ==
[~2019-11-15] MED LIST changes: -ACETAMINOPHEN 500 MG TAB PO ONE; -CYANOCOBALAMIN (B-12) 1000 MCG/1 ML VIAL IM ONE; -CYANOCOBALAMIN (B-12) 1000 MCG/1 ML VIAL ONE; -FUROSEMIDE 20 MG/2 ML VIAL IV ONE; -FUROSEMIDE 20 MG/2 ML VIAL ONE; -MVI in SODIUM CHLORIDE 0.9% 1,010 ML ONE; -MVI in SODIUM CHLORIDE 0.9% 500 ML IVB ONE; -PROMETHAZINE HCL 25 MG/ML 1ML IV ONE; -PROMETHAZINE HCL 25 MG/ML 1ML ONE; +TESTOSTERONE CYPIONATE 200 MG/ML 1ML VIAL IM ONE; -cefTRIAXone 1GM/50ML D5W 50 ML IV ONE
[2019-11-15 11:35] VITALS: BP 100/62
[2019-11-15 11:51] LABS: Basophils # (auto) 0 uL; Basophils % (auto) 0.5 % (0.0-2.0); Eosinophils # (auto) 0.2 uL; Eosinophils % (auto) 2.4 % (0.0-7.0); Hematocrit 44.2 % (41.0-53.0); Hemoglobin 14.7 g/dL (13.5-17.5); Lymphocytes # (auto) 1.4 uL; Lymphocytes % (auto) 18.2 % (10.0-50.0); Mean Corpuscular Hemoglobin 30.2 pg (28.0-32.0); Mean Corpuscular Hgb Conc. 33.3 g/dL (32.0-36.0); Mean Corpuscular Volume 90.6 fL (80.0-100.0); Monocytes # (auto) 0.5 uL; Monocytes % (auto) 6.6 % (0.0-12.0); Neutrophils # (auto) 5.4 uL; Neutrophils % (auto) 72.3 % (37.0-80.0); Nucleated Red Blood Cells % 0.1 %; Platelet Count (auto) 273 10^3/uL (140-450); Red Blood Cells 4.88 10^6/uL (4.5-5.90); Red Cell Distribution Width 15.3 % (11.8-14.3); White Blood Cell 7.5 10^3/uL (4.4-10.8)
[2019-11-15 12:01] LABS: Calcium 9.1 mg/dL (8.5-10.1); Magnesium 2.5 mg/dL (1.6-2.6); Potassium 4.5 mmol/L (3.5-5.1)
[2019-11-15 12:04] LABS: BUN/Creatinine Ratio 13.8; Bilirubin, Total 0.6 mg/dL (0.2-1.0); Total Protein 7.8 g/dL (6.4-8.2)
== END | disposition home or self-care (01) ==
LOC: CHF HDHVI 09:27
PROVIDERS: ATTEND Internal Medicine
DX: D64.9 Anemia, unspecified (principal); E29.1 Testicular hypofunction; R11.2 Nausea with vomiting, unspecified; I13.0 Hypertensive heart and chronic kidney disease with heart failure and stage 1 through stage 4 chronic kidney disease, or unspecified chronic kidney disease; I50.42 Chronic combined systolic (congestive) and diastolic (congestive) heart failure; N18.2 Chronic kidney disease, stage 2 (mild); I27.21 Secondary pulmonary arterial hypertension; I25.10 Atherosclerotic heart disease of native coronary artery without angina pectoris; J44.9 Chronic obstructive pulmonary disease, unspecified; K21.9 Gastro-esophageal reflux disease without esophagitis; E11.22 Type 2 diabetes mellitus with diabetic chronic kidney disease; Z12.5 Encounter for screening for malignant neoplasm of prostate; Z79.899 Other long term (current) drug therapy; Z99.81 Dependence on supplemental oxygen; Z79.82 Long term (current) use of aspirin; Z79.891 Long term (current) use of opiate analgesic; Z79.84 Long term (current) use of oral hypoglycemic drugs; Z87.891 Personal history of nicotine dependence; Z79.4 Long term (current) use of insulin
CPT/HCPCS: 36415; 80053; 83735; 85025; 93701; 96372; G0463; J1071

== ENCOUNTER → 2019-11-17 | Outpatient (CLI) | payer MEDICAID ==
[~2019-11-17] MED LIST changes: +CYANOCOBALAMIN (B-12) 1000 MCG/1 ML VIAL IM ONE; +CYANOCOBALAMIN (B-12) 1000 MCG/1 ML VIAL ONE; -TESTOSTERONE CYPIONATE 200 MG/ML 1ML VIAL IM ONE
[2019-11-17 09:13] VITALS: BP 117/72
[2019-11-17 09:52] VITALS: BP 104/66
--- NOTE | 2019-11-17 09:52 | NUR ---
Discharge Instructions See e-MAR for any mediations given with this visit. Patient education given on disease process. Patient verbalized understanding. Previous labs reviewed. Patient discharged in stable condition with after care instructions and follow up appointment. MEDICATION VITAMIN B12 IM, LOT #[id number] EXP 05/15 PT DOING BETTER THIS VISIT WILL CONTINUE TO MONITOR BI WEEKLY
== END | disposition home or self-care (01) ==
LOC: CHF HDHVI 09:15
PROVIDERS: ATTEND Internal Medicine
DX: I13.0 Hypertensive heart and chronic kidney disease with heart failure and stage 1 through stage 4 chronic kidney disease, or unspecified chronic kidney disease (principal); D64.9 Anemia, unspecified; N18.2 Chronic kidney disease, stage 2 (mild); I50.42 Chronic combined systolic (congestive) and diastolic (congestive) heart failure; I25.10 Atherosclerotic heart disease of native coronary artery without angina pectoris; J44.9 Chronic obstructive pulmonary disease, unspecified; K21.9 Gastro-esophageal reflux disease without esophagitis; E11.22 Type 2 diabetes mellitus with diabetic chronic kidney disease; E78.5 Hyperlipidemia, unspecified; E66.9 Obesity, unspecified; E78.00 Pure hypercholesterolemia, unspecified; Z99.81 Dependence on supplemental oxygen; Z79.4 Long term (current) use of insulin; Z79.82 Long term (current) use of aspirin; Z79.891 Long term (current) use of opiate analgesic; Z79.84 Long term (current) use of oral hypoglycemic drugs; Z79.899 Other long term (current) drug therapy; Z87.891 Personal history of nicotine dependence
CPT/HCPCS: 96372; G0463; J3420

== ENCOUNTER → 2019-11-22 | Outpatient (CLI) | payer MEDICAID ==
[~2019-11-22] MED LIST changes: -CYANOCOBALAMIN (B-12) 1000 MCG/1 ML VIAL IM ONE; -CYANOCOBALAMIN (B-12) 1000 MCG/1 ML VIAL ONE
== END | disposition home or self-care (01) ==
LOC: CHF HDHVI 09:20
PROVIDERS: ATTEND Internal Medicine
DX: I07.1 Rheumatic tricuspid insufficiency (principal); I27.20 Pulmonary hypertension, unspecified; J44.9 Chronic obstructive pulmonary disease, unspecified; I10 Essential (primary) hypertension
CPT/HCPCS: 93306

== ENCOUNTER → 2019-11-29 | Outpatient (CLI) | payer MEDICAID ==
[~2019-11-29] MED LIST changes: +CYANOCOBALAMIN (B-12) 1000 MCG/1 ML VIAL IM ONE; +CYANOCOBALAMIN (B-12) 1000 MCG/1 ML VIAL ONE
[2019-11-29 09:01] VITALS: BP 115/70
[2019-11-29 10:00] VITALS: BP 110/69
--- NOTE | 2019-11-29 10:00 | NUR ---
Discharge Instructions See e-MAR for any mediations given with this visit. Patient education given on disease process. Patient verbalized understanding. Previous labs reviewed. Patient discharged in stable condition with after care instructions and follow up appointment. MEDICATIONS VITAMIN B12 1000 MCG IM LOT # [id number] EXP 05/15 CARDIODYNAMICS COMPLETED BY SAMSON GUILLAUME AND REVIEWED BY RN PT DOING MUCH BETTER THIS WEEK CARDIODYNAMICS IMPROVED WELL
== END | disposition home or self-care (01) ==
LOC: CHF HDHVI 09:11
PROVIDERS: ATTEND Internal Medicine
DX: I27.21 Secondary pulmonary arterial hypertension (principal); I13.0 Hypertensive heart and chronic kidney disease with heart failure and stage 1 through stage 4 chronic kidney disease, or unspecified chronic kidney disease; E11.22 Type 2 diabetes mellitus with diabetic chronic kidney disease; N18.2 Chronic kidney disease, stage 2 (mild); I50.42 Chronic combined systolic (congestive) and diastolic (congestive) heart failure; I25.10 Atherosclerotic heart disease of native coronary artery without angina pectoris; R94.4 Abnormal results of kidney function studies; E87.6 Hypokalemia; D64.9 Anemia, unspecified; R53.83 Other fatigue; J44.9 Chronic obstructive pulmonary disease, unspecified; K21.9 Gastro-esophageal reflux disease without esophagitis; E78.5 Hyperlipidemia, unspecified; E66.9 Obesity, unspecified; Z79.82 Long term (current) use of aspirin; Z79.4 Long term (current) use of insulin; Z79.891 Long term (current) use of opiate analgesic; Z79.84 Long term (current) use of oral hypoglycemic drugs; Z79.899 Other long term (current) drug therapy; Z87.891 Personal history of nicotine dependence; Z99.81 Dependence on supplemental oxygen
CPT/HCPCS: 36415; 82565; 84132; 84520; 93701; 96372; G0463; J3420

== ENCOUNTER → 2019-12-15 | Outpatient (CLI) | payer MEDICAID ==
--- NOTE | 2019-12-15 09:45 | NUR ---
CHF PT IN CLINIC FOR WEEKLY PAH FU. PT STATED HE FEELS BETTER THIS VISIT. WEIGHT UP 1.4 POUNDS PT ADMITS DIETARY INTAKE COULD BE BETTER. EDUCATION PROVIDED ON DIET PT VERBALIZED UNDERSTANDING
--- NOTE | 2019-12-15 11:13 | NUR ---
FATIGUE NOTED VITAMIN B12 IM ORDERED
[2019-12-15 11:15] VITALS: BP 107/66
--- NOTE | 2019-12-15 11:15 | NUR ---
Discharge Instructions See e-MAR for any mediations given with this visit. Patient education given on disease process. Patient verbalized understanding. Previous labs reviewed. Patient discharged in stable condition with after care instructions and follow up appointment. MEDICATIONS VITAMIN B12 IM 1000MCG LEFT DELTOID LOT # [id number] EXP 05/15
== END | disposition home or self-care (01) ==
LOC: CHF HDHVI 09:43
PROVIDERS: ATTEND Internal Medicine
DX: I27.21 Secondary pulmonary arterial hypertension (principal); R53.83 Other fatigue
CPT/HCPCS: 96372; G0463; J3420

== ENCOUNTER → 2019-12-22 | Outpatient (CLI) | payer MEDICAID ==
[~2019-12-22] MED LIST changes: -CYANOCOBALAMIN (B-12) 1000 MCG/1 ML VIAL IM ONE; -CYANOCOBALAMIN (B-12) 1000 MCG/1 ML VIAL ONE
[2019-12-22 09:30] VITALS: BP 99/71
--- NOTE | 2019-12-22 09:30 | NUR ---
CHF PT ARRIVED TO THE CHF CLINIC FOR PAH JENAAL. ARRIVED TO THE CLINIC ON HOME 02 4L N/C. O2 SAT 90%. A/O X4, VSS. Addendum: 12/22/19 at 1035 by KEYANNA PEREIRA RN RN CO PT WT DOWN .8 LB
[2019-12-22 12:02] VITALS: BP 110/69
--- NOTE | 2019-12-22 12:02 | NUR ---
Discharge Instructions See e-MAR for any mediations given with this visit. Patient education given on disease process. Patient verbalized understanding. Previous labs reviewed. Patient discharged in stable condition with after care instructions and follow up appointment IN 1 WEEK
[2019-12-22 12:19] LABS: Potassium 4.7 mmol/L (3.5-5.1)
[2019-12-22 12:28] LABS: Albumin 4.1 g/dL (3.4-5.0); BUN/Creatinine Ratio 13.4; Bilirubin, Total 0.7 mg/dL (0.2-1.0); Calcium 9.4 mg/dL (8.5-10.1); Magnesium 2.6 mg/dL (1.6-2.6); Total Protein 8.1 g/dL (6.4-8.2)
== END | disposition home or self-care (01) ==
LOC: CHF HDHVI 09:32
PROVIDERS: ATTEND Internal Medicine
DX: D51.9 Vitamin B12 deficiency anemia, unspecified (principal); R53.83 Other fatigue; Z79.899 Other long term (current) drug therapy
CPT/HCPCS: 36415; 80053; 82607; 83735; G0463

== ENCOUNTER → 2019-12-29 | Outpatient (CLI) | payer MEDICAID ==
[2019-12-29 09:40] VITALS: BP_SYST 111; BP_SYST 97; BP_DIAS 66; BP_DIAS 69
--- NOTE | 2019-12-29 09:40 | NUR ---
Pt came into clinic for weekly visit on home O2 4lpm, states he is feeling better since last week. Pt placed on facility O2, pt AAOx4.
--- NOTE | 2019-12-29 11:00 | NUR ---
Patient completed 6MWT total 240m.
--- NOTE | 2019-12-29 11:45 | NUR ---
Chacho RN spoke with patient regarding POC and Dr Valdez referral.
[2019-12-29 11:55] LABS: Basophils # (auto) 0 10 ^3/uL (0-0.2); Basophils % (auto) 0.5 % (0.0-2.0); Eosinophils # (auto) 0.2 10 ^3/uL (0-0.8); Eosinophils % (auto) 1.9 % (0.0-7.0); Hematocrit 46.3 % (41.0-53.0); Hemoglobin 15.3 g/dL (13.5-17.5); Lymphocytes # (auto) 1.3 10 ^3/uL (0.4-5.4); Lymphocytes % (auto) 13.9 % (10.0-50.0); Mean Corpuscular Hemoglobin 30.4 pg (28.0-32.0); Mean Corpuscular Hgb Conc. 33.1 g/dL (32.0-36.0); Mean Corpuscular Volume 91.8 fL (80.0-100.0); Monocytes # (auto) 0.5 10 ^3/uL (0-1.3); Neutrophils # (auto) 7.1 10 ^3/uL (1.6-8.6); Neutrophils % (auto) 77.7 % (37.0-80.0); Platelet Count (auto) 210 10^3/uL (140-450); Red Blood Cells 5.04 10^6/uL (4.5-5.90); Red Cell Distribution Width 15.5 % (11.8-14.3); White Blood Cell 9.1 10^3/uL (4.4-10.8)
[2019-12-29 12:10] VITALS: BP 97/66
--- NOTE | 2019-12-29 12:10 | NUR ---
CHF Clinic Discharge Instructions See e-MAR for any mediations given with this visit. Patient education given on disease process. Patient verbalized understanding. Previous labs reviewed. Patient discharged in stable condition with after care instructions and follow up appointment. Note Cardiodynamics reviewed with pt by RN. 6MWT performed, ^45m from last test. Pt Uptravi increased 1000mg at night dose and remain 800mg on morning dose.
[2019-12-29 12:16] LABS: Potassium 4.4 mmol/L (3.5-5.1)
== END | disposition home or self-care (01) ==
LOC: CHF HDHVI 09:41
PROVIDERS: ATTEND Internal Medicine
DX: R53.83 Other fatigue (principal); D64.9 Anemia, unspecified; E87.6 Hypokalemia
CPT/HCPCS: 36415; 82565; 83540; 84132; 84520; 85025; 93701; 94618; G0463

== ENCOUNTER → 2020-01-05 | Outpatient (CLI) | payer MEDICAID ==
[~2020-01-05] MED LIST changes: +CYANOCOBALAMIN (B-12) 1000 MCG/1 ML VIAL IM ONE; +CYANOCOBALAMIN (B-12) 1000 MCG/1 ML VIAL ONE
[2020-01-05 09:25] VITALS: BP 126/76
--- NOTE | 2020-01-05 09:25 | NUR ---
CHF PT ARRIVED TO THE CLINIC FOR WEEKLY PAH F/U AND TREATMENT. A/O X4 VSS. DISCUSSED MEDICATION REGIMEN WITH PT. CURRENTLY TAKING ADEMPAS 2.5MG TID, UPTRAVI 800MG BID, OPSUMIT 10 DAILY.
[2020-01-05 12:29] VITALS: BP 111/68
--- NOTE | 2020-01-05 12:29 | NUR ---
Discharge Instructions See e-MAR for any mediations given with this visit. Patient education given on disease process. Patient verbalized understanding. Previous labs reviewed. Patient discharged in stable condition with after care instructions and follow up appointment. IN 1 WEEK NOTE VIT B12 IM L DELTOID ADMIN BY KEYANNA SAPP
== END | disposition home or self-care (01) ==
LOC: CHF HDHVI 09:33
PROVIDERS: ATTEND Internal Medicine
DX: I27.21 Secondary pulmonary arterial hypertension (principal); I13.2 Hypertensive heart and chronic kidney disease with heart failure and with stage 5 chronic kidney disease, or end stage renal disease; E11.22 Type 2 diabetes mellitus with diabetic chronic kidney disease; N18.2 Chronic kidney disease, stage 2 (mild); I50.42 Chronic combined systolic (congestive) and diastolic (congestive) heart failure; I25.10 Atherosclerotic heart disease of native coronary artery without angina pectoris; R53.83 Other fatigue; R06.02 Shortness of breath; J44.9 Chronic obstructive pulmonary disease, unspecified; K21.9 Gastro-esophageal reflux disease without esophagitis; E78.5 Hyperlipidemia, unspecified; E66.9 Obesity, unspecified; E78.00 Pure hypercholesterolemia, unspecified; Z79.82 Long term (current) use of aspirin; Z79.4 Long term (current) use of insulin; Z79.891 Long term (current) use of opiate analgesic; Z87.891 Personal history of nicotine dependence; Z99.81 Dependence on supplemental oxygen; Z79.899 Other long term (current) drug therapy
CPT/HCPCS: 96372; G0463; J3420

== ENCOUNTER → 2020-01-10 | Outpatient (CLI) | payer MEDICAID ==
[~2020-01-10] MED LIST changes: -CYANOCOBALAMIN (B-12) 1000 MCG/1 ML VIAL IM ONE; -CYANOCOBALAMIN (B-12) 1000 MCG/1 ML VIAL ONE
[2020-01-10 16:01] LABS: Albumin 3.6 g/dL (3.4-5.0); Calcium 8.9 mg/dL (8.5-10.1); Uric Acid 5.8 mg/dL (3.5-7.2)
[2020-01-10 16:05] LABS: % Iron Saturation 20.7 % (20-55); BUN/Creatinine Ratio 19.3; Bilirubin, Total 0.5 mg/dL (0.2-1.0); Total Protein 7.7 g/dL (6.4-8.2)
[2020-01-10 16:06] LABS: Basophils # (auto) 0.1 10 ^3/uL (0-0.2); Basophils % (auto) 0.6 % (0.0-2.0); Eosinophils # (auto) 0.1 10 ^3/uL (0-0.8); Eosinophils % (auto) 1.4 % (0.0-7.0); Hematocrit 42.2 % (41.0-53.0); Hemoglobin 14.3 g/dL (13.5-17.5); Lymphocytes # (auto) 1.5 10 ^3/uL (0.4-5.4); Lymphocytes % (auto) 15.6 % (10.0-50.0); Mean Corpuscular Hemoglobin 30.4 pg (28.0-32.0); Mean Corpuscular Hgb Conc. 33.8 g/dL (32.0-36.0); Mean Corpuscular Volume 89.9 fL (80.0-100.0); Monocytes # (auto) 0.7 10 ^3/uL (0-1.3); Monocytes % (auto) 6.7 % (0.0-12.0); Neutrophils # (auto) 7.5 10 ^3/uL (1.6-8.6); Neutrophils % (auto) 75.7 % (37.0-80.0); Nucleated Red Blood Cells % 0.1 %; Platelet Count (auto) 272 10^3/uL (140-450); Red Cell Distribution Width 15.5 % (11.8-14.3); White Blood Cell 9.9 10^3/uL (4.4-10.8)
[2020-01-10 16:12] LABS: Prostate Specific Antigen 0.47 ng/mL (0.0-4.0)
[2020-01-12 09:24] LABS: Hepatitis B Surface Antibody Negative
[2020-01-12 09:55] LABS: Hepatitis A Total Antibody Negative
[2020-01-12 10:22] LABS: Hepatitis B Core Total AB Negative; Hepatitis B Surface Antigen Negative (Negative); Hepatitis C Antibody Negative (Negative)
== END | disposition home or self-care (01) ==
LOC: LAB 11:24
PROVIDERS: ATTEND Internal Medicine
DX: Z00.00 Encounter for general adult medical examination without abnormal findings (principal); R80.9 Proteinuria, unspecified; M10.9 Gout, unspecified; E03.9 Hypothyroidism, unspecified; K90.9 Intestinal malabsorption, unspecified; C61 Malignant neoplasm of prostate; E29.1 Testicular hypofunction; N39.0 Urinary tract infection, site not specified; D51.9 Vitamin B12 deficiency anemia, unspecified; Z20.5 Contact with and (suspected) exposure to viral hepatitis; Z79.899 Other long term (current) drug therapy
CPT/HCPCS: 36415; 80053; 80061; 82306; 82607; 83036; 83540; 83550; 84153; 84155; 84165; 84443; 84550; 85025; 86704; 86706; 86708; 86803; 87340

== ENCOUNTER → 2020-03-08 | Outpatient (CLI) | payer MEDICAID ==
[~2020-03-08] MED LIST changes: -ASPI-404 PO; +ASPI-543 PO; +CYANOCOBALAMIN (B-12) 1000 MCG/1 ML VIAL IM ONE; +CYANOCOBALAMIN (B-12) 1000 MCG/1 ML VIAL ONE
[2020-03-08 12:30] VITALS: BP 106/71
--- NOTE | 2020-03-08 12:30 | NUR ---
CHF PT ARRIVED TO THE CHF CLINIC FOR MONTHLY PAH F/U AND EVAL PER MD ORDERS. A/O X4. LABS DRAWN AN SENT. A/0 X4.
[2020-03-08 13:43] VITALS: BP 100/65
--- NOTE | 2020-03-08 13:43 | NUR ---
Discharge Instructions See e-MAR for any mediations given with this visit. Patient education given on disease process. Patient verbalized understanding. Previous labs reviewed. Patient discharged in stable condition with after care instructions and follow up appointment. PT TO SEE MD TODAY AFTER CLINIC. NOTE VIT B12 IM ADMIN BY KEYANNA SAPP
[2020-03-08 15:42] LABS: Basophils # (auto) 0.1 10 ^3/uL (0-0.2); Basophils % (auto) 0.8 % (0.0-2.0); Eosinophils # (auto) 0.2 10 ^3/uL (0-0.8); Eosinophils % (auto) 1.3 % (0.0-7.0); Hematocrit 48.2 % (41.0-53.0); Hemoglobin 15.8 g/dL (13.5-17.5); Lymphocytes # (auto) 1.2 10 ^3/uL (0.4-5.4); Lymphocytes % (auto) 9.8 % (10.0-50.0); Mean Corpuscular Hemoglobin 29.7 pg (28.0-32.0); Mean Corpuscular Hgb Conc. 32.7 g/dL (32.0-36.0); Mean Corpuscular Volume 90.7 fL (80.0-100.0); Monocytes # (auto) 0.7 10 ^3/uL (0-1.3); Monocytes % (auto) 5.9 % (0.0-12.0); Neutrophils # (auto) 9.8 10 ^3/uL (1.6-8.6); Neutrophils % (auto) 82.2 % (37.0-80.0); Nucleated Red Blood Cells % 0.2 %; Platelet Count (auto) 244 10^3/uL (140-450); Red Blood Cells 5.32 10^6/uL (4.5-5.90); Red Cell Distribution Width 15.8 % (11.8-14.3)
[2020-03-08 16:36] LABS: Albumin 3.9 g/dL (3.4-5.0); Calcium 8.7 mg/dL (8.5-10.1); Potassium 4.3 mmol/L (3.5-5.1)
[2020-03-08 16:37] LABS: Hepatitis B Surface Antibody Negative
[2020-03-08 16:41] LABS: BUN/Creatinine Ratio 15.6; Bilirubin, Direct 0.3 mg/dL (0-0.2)
[2020-03-08 17:16] LABS: Hepatitis A Total Antibody Negative
[2020-03-08 17:25] LABS: Hepatitis B Core Total AB Negative; Hepatitis B Surface Antigen Negative (Negative); Hepatitis C Antibody Negative (Negative)
== END | disposition home or self-care (01) ==
LOC: CHF HDHVI 12:49
PROVIDERS: ATTEND Internal Medicine Cardiovascular Disease
DX: I27.21 Secondary pulmonary arterial hypertension (principal); I12.9 Hypertensive chronic kidney disease with stage 1 through stage 4 chronic kidney disease, or unspecified chronic kidney disease; N18.2 Chronic kidney disease, stage 2 (mild); R97.20 Elevated prostate specific antigen [PSA]; K90.9 Intestinal malabsorption, unspecified; R73.01 Impaired fasting glucose; D64.9 Anemia, unspecified; Z12.11 Encounter for screening for malignant neoplasm of colon
CPT/HCPCS: 36415; 80048; 80061; 80076; 82306; 83036; 83540; 83550; 83880; 84153; 84443; 85025; 86704; 86706; 86708; 86803; 87340; 96372; G0463; J3420

== ENCOUNTER → 2020-03-16 | Outpatient (CLI) | payer MEDICAID ==
[~2020-03-16] MED LIST changes: +ASPI-404 PO; -ASPI-543 PO; -CYANOCOBALAMIN (B-12) 1000 MCG/1 ML VIAL IM ONE; -CYANOCOBALAMIN (B-12) 1000 MCG/1 ML VIAL ONE
== END | disposition home or self-care (01) ==
LOC: LAB 11:54
PROVIDERS: ATTEND Internal Medicine
DX: R19.5 Other fecal abnormalities (principal)
CPT/HCPCS: 82270

== ENCOUNTER → 2020-04-12 | Outpatient (CLI) | payer MEDICAID ==
[2020-04-12 10:30] VITALS: BP 116/75
[2020-04-12 11:52] LABS: Basophils # (auto) 0 10 ^3/uL (0-0.2); Basophils % (auto) 0.4 % (0.0-2.0); Eosinophils # (auto) 0.2 10 ^3/uL (0-0.8); Eosinophils % (auto) 2.2 % (0.0-7.0); Hematocrit 46.8 % (41.0-53.0); Hemoglobin 15.5 g/dL (13.5-17.5); Lymphocytes # (auto) 1.4 10 ^3/uL (0.4-5.4); Lymphocytes % (auto) 16.4 % (10.0-50.0); Mean Corpuscular Hemoglobin 29.8 pg (28.0-32.0); Mean Corpuscular Hgb Conc. 33.1 g/dL (32.0-36.0); Mean Corpuscular Volume 89.9 fL (80.0-100.0); Monocytes # (auto) 0.6 10 ^3/uL (0-1.3); Monocytes % (auto) 7.6 % (0.0-12.0); Neutrophils # (auto) 6.2 10 ^3/uL (1.6-8.6); Neutrophils % (auto) 73.4 % (37.0-80.0); Platelet Count (auto) 207 10^3/uL (140-450); Red Blood Cells 5.21 10^6/uL (4.5-5.90); Red Cell Distribution Width 15.7 % (11.8-14.3); White Blood Cell 8.5 10^3/uL (4.4-10.8)
[2020-04-12 12:00] LABS: Albumin 3.9 g/dL (3.4-5.0); Potassium 3.9 mmol/L (3.5-5.1)
[2020-04-12 12:04] LABS: BUN/Creatinine Ratio 17.2; Calcium 8.7 mg/dL (8.5-10.1); Magnesium 2.2 mg/dL (1.6-2.6)
[2020-04-12 12:07] LABS: Bilirubin, Total 0.8 mg/dL (0.2-1.0); Total Protein 7.7 g/dL (6.4-8.2)
[2020-04-12 12:25] VITALS: BP 102/69
== END | disposition home or self-care (01) ==
LOC: CHF HDHVI 10:43
PROVIDERS: ATTEND Internal Medicine
DX: D51.9 Vitamin B12 deficiency anemia, unspecified (principal); I10 Essential (primary) hypertension; D64.9 Anemia, unspecified; E83.40 Disorders of magnesium metabolism, unspecified
CPT/HCPCS: 36415; 80053; 82607; 83735; 85025; 94618; G0463

== ENCOUNTER → 2020-05-11 | Outpatient (CLI) | payer MEDICAID ==
[~2020-05-11] MED LIST changes: -ASPI-404 PO; +ASPI-543 PO; +CYANOCOBALAMIN (B-12) 1000 MCG/1 ML VIAL IM ONE; +CYANOCOBALAMIN (B-12) 1000 MCG/1 ML VIAL ONE
[2020-05-11 09:49] VITALS: BP 110/70
--- NOTE | 2020-05-11 09:49 | NUR ---
CLINIC PT ARRIVED TO THE CHF CLINIC FOR MONTHLY PAH EVAQL AND TX PER MD ORDERS. A/OX4, AMBULATORY. PT IS ON HOME O2 4L N/C. BREATHING IS EVEN AND UNLABORED.
--- NOTE | 2020-05-11 10:15 | NUR ---
LABS DRAWN AND SENT
[2020-05-11 10:36] VITALS: BP 111/74
--- NOTE | 2020-05-11 10:36 | NUR ---
Discharge Instructions See e-MAR for any mediations given with this visit. Patient education given on disease process. Patient verbalized understanding. Previous labs reviewed. Patient discharged in stable condition with after care instructions and follow up appointment IN 1 MONTH. ECHO AND CXR ALSO SCHEDULED WITH PT. NOTE VIT B12 IM ADMIN BY KEYANNA MARCH LOT#[id number] EXP 01/14
[2020-05-11 11:53] LABS: Basophils # (auto) 0.1 10 ^3/uL (0-0.2); Basophils % (auto) 0.8 % (0.0-2.0); Eosinophils # (auto) 0.2 10 ^3/uL (0-0.8); Eosinophils % (auto) 2.3 % (0.0-7.0); Hematocrit 51.3 % (41.0-53.0); Hemoglobin 16.9 g/dL (13.5-17.5); Lymphocytes # (auto) 1.5 10 ^3/uL (0.4-5.4); Lymphocytes % (auto) 15.7 % (10.0-50.0); Mean Corpuscular Hemoglobin 30.1 pg (28.0-32.0); Mean Corpuscular Hgb Conc. 32.9 g/dL (32.0-36.0); Mean Corpuscular Volume 91.5 fL (80.0-100.0); Monocytes # (auto) 0.7 10 ^3/uL (0-1.3); Monocytes % (auto) 7.2 % (0.0-12.0); Neutrophils # (auto) 7.1 10 ^3/uL (1.6-8.6); Nucleated Red Blood Cells % 0.1 %; Platelet Count (auto) 223 10^3/uL (140-450); Red Blood Cells 5.61 10^6/uL (4.5-5.90); Red Cell Distribution Width 15.5 % (11.8-14.3); White Blood Cell 9.6 10^3/uL (4.4-10.8)
[2020-05-11 12:22] LABS: Albumin 4.3 g/dL (3.4-5.0); Calcium 9.3 mg/dL (8.5-10.1); Magnesium 2.6 mg/dL (1.6-2.6); Potassium 4.2 mmol/L (3.5-5.1)
[2020-05-11 12:27] LABS: BUN/Creatinine Ratio 17.1; Total Protein 8.5 g/dL (6.4-8.2)
== END | disposition home or self-care (01) ==
LOC: CHF HDHVI 09:48
PROVIDERS: ATTEND Internal Medicine
DX: I27.21 Secondary pulmonary arterial hypertension (principal); R53.83 Other fatigue; R06.02 Shortness of breath; E03.9 Hypothyroidism, unspecified; K90.9 Intestinal malabsorption, unspecified; D51.9 Vitamin B12 deficiency anemia, unspecified; E11.9 Type 2 diabetes mellitus without complications; Z79.899 Other long term (current) drug therapy
CPT/HCPCS: 36415; 80053; 80061; 82306; 83036; 83735; 84443; 85025; 96372; G0463; J3420

== ENCOUNTER → 2020-05-29 | Outpatient (CLI) | payer MEDICAID ==
[~2020-05-29] MED LIST changes: -CYANOCOBALAMIN (B-12) 1000 MCG/1 ML VIAL IM ONE; -CYANOCOBALAMIN (B-12) 1000 MCG/1 ML VIAL ONE
== END | disposition home or self-care (01) ==
LOC: CHF HDHVI 11:03
PROVIDERS: ATTEND Internal Medicine
DX: I50.9 Heart failure, unspecified (principal); R06.02 Shortness of breath; I27.20 Pulmonary hypertension, unspecified
CPT/HCPCS: 93306

== ENCOUNTER → 2020-06-06 | Outpatient (CLI) | payer MEDICAID ==
[2020-06-06 16:28] LABS: % Iron Saturation 26.9 % (20-55)
== END | disposition home or self-care (01) ==
LOC: Rad HDHVI 11:22
PROVIDERS: ATTEND Internal Medicine
DX: E66.9 Obesity, unspecified (principal); R06.02 Shortness of breath; R73.01 Impaired fasting glucose; D50.9 Iron deficiency anemia, unspecified; E75.6 Lipid storage disorder, unspecified; I10 Essential (primary) hypertension; C61 Malignant neoplasm of prostate; Z00.00 Encounter for general adult medical examination without abnormal findings
CPT/HCPCS: 71046; 83540; 83550; 83880; 84153

== ENCOUNTER → 2020-06-26 | Outpatient (CLI) | payer MEDICAID ==
[~2020-06-26] MED LIST changes: +CYANOCOBALAMIN (B-12) 1000 MCG/1 ML VIAL IM ONE; +CYANOCOBALAMIN (B-12) 1000 MCG/1 ML VIAL ONE
[2020-06-26 10:30] VITALS: BP 118/73
--- NOTE | 2020-06-26 10:30 | NUR ---
CLINIC PT ARRIVED TO THE CHF CLINIC FOR MONTHLY PAH EVAL AND TX. A/OX4, AMBULATORY. PT ON HOME O2 4L N/C 92% SATS.
--- NOTE | 2020-06-26 10:39 | NUR ---
LABS DRAWN AND SENT
[2020-06-26 10:53] VITALS: BP 105/68
--- NOTE | 2020-06-26 10:53 | NUR ---
Discharge Instructions See e-MAR for any mediations given with this visit. Patient education given on disease process. Patient verbalized understanding. Previous labs reviewed. Patient discharged in stable condition with after care instructions and follow up appointment. PT TO SEE MD CLEMONS NOW AND F/U IN CLINIC IN 1 MONTH. NOTE VIT B 12 IM ADMIN BY KEYANNA Sarkar DELTOID LOT# [id number] EXP 02/15
[2020-06-26 12:18] LABS: Basophils # (auto) 0 10 ^3/uL (0-0.2); Basophils % (auto) 0.6 % (0.0-2.0); Eosinophils # (auto) 0.2 10 ^3/uL (0-0.8); Eosinophils % (auto) 2.4 % (0.0-7.0); Hematocrit 48.2 % (41.0-53.0); Hemoglobin 16.6 g/dL (13.5-17.5); Lymphocytes # (auto) 1.6 10 ^3/uL (0.4-5.4); Lymphocytes % (auto) 19.1 % (10.0-50.0); Mean Corpuscular Hgb Conc. 34.4 g/dL (32.0-36.0); Mean Corpuscular Volume 90.2 fL (80.0-100.0); Monocytes # (auto) 0.7 10 ^3/uL (0-1.3); Monocytes % (auto) 8.2 % (0.0-12.0); Neutrophils # (auto) 5.7 10 ^3/uL (1.6-8.6); Neutrophils % (auto) 69.7 % (37.0-80.0); Nucleated Red Blood Cells % 0.2 %; Platelet Count (auto) 205 10^3/uL (140-450); Red Blood Cells 5.34 10^6/uL (4.5-5.90); Red Cell Distribution Width 15.3 % (11.8-14.3); White Blood Cell 8.2 10^3/uL (4.4-10.8)
[2020-06-26 12:22] LABS: Potassium 4.2 mmol/L (3.5-5.1)
[2020-06-26 12:31] LABS: Albumin 4.1 g/dL (3.4-5.0); Calcium 9.1 mg/dL (8.5-10.1); Magnesium 2.6 mg/dL (1.6-2.6); Total Protein 7.8 g/dL (6.4-8.2)
== END | disposition home or self-care (01) ==
LOC: Rad HDHVI 07:55
PROVIDERS: ATTEND Internal Medicine
DX: I27.0 Primary pulmonary hypertension (principal); R53.83 Other fatigue; D64.9 Anemia, unspecified; I50.9 Heart failure, unspecified; E83.40 Disorders of magnesium metabolism, unspecified; E66.9 Obesity, unspecified; E03.9 Hypothyroidism, unspecified; E11.9 Type 2 diabetes mellitus without complications; Z79.899 Other long term (current) drug therapy
CPT/HCPCS: 36415; 80053; 83735; 85025; 96372; G0463; J3420

== ENCOUNTER → 2020-07-26 | Outpatient (CLI) | payer MEDICAID ==
[2020-07-26 10:00] VITALS: BP 111/66
--- NOTE | 2020-07-26 10:00 | NUR ---
CLINIC PT ARRIVED TO THE CHF CLINIC FOR MONTHLY PAH EVAL AND TX. A/O X4, AMBULATORY, PT IS ON HOME 02 5L N/C. PT C/O LOSS OF APPETITE AND NAUSEA X2 DAYS. PT IS UP 5 LBS SINCE LAST VISIT ON 06/26/20.
--- NOTE | 2020-07-26 10:22 | NUR ---
LABS DRAWN AND SENT
[2020-07-26 10:30] VITALS: BP 105/64
--- NOTE | 2020-07-26 10:30 | NUR ---
Discharge Instructions See e-MAR for any mediations given with this visit. Patient education given on disease process. Patient verbalized understanding. Previous labs reviewed. Patient discharged in stable condition with after care instructions and follow up appointment 2 WEEKS WITH MD BEST. NOTE VIT B 12 IM ADMIN BY EVONNE MARCH LOT#[id number] EXP 02/14
[2020-07-26 12:00] LABS: Basophils # (auto) 0 10 ^3/uL (0-0.2); Basophils % (auto) 0.3 % (0.0-2.0); Eosinophils # (auto) 0 10 ^3/uL (0-0.8); Eosinophils % (auto) 0.1 % (0.0-7.0); Hematocrit 45.8 % (41.0-53.0); Hemoglobin 15.5 g/dL (13.5-17.5); Lymphocytes # (auto) 0.7 10 ^3/uL (0.4-5.4); Lymphocytes % (auto) 7.2 % (10.0-50.0); Mean Corpuscular Hemoglobin 30.6 pg (28.0-32.0); Mean Corpuscular Hgb Conc. 33.9 g/dL (32.0-36.0); Mean Corpuscular Volume 90.2 fL (80.0-100.0); Monocytes # (auto) 0.6 10 ^3/uL (0-1.3); Neutrophils # (auto) 8.7 10 ^3/uL (1.6-8.6); Neutrophils % (auto) 86.4 % (37.0-80.0); Platelet Count (auto) 161 10^3/uL (140-450); Red Blood Cells 5.08 10^6/uL (4.5-5.90); Red Cell Distribution Width 15.2 % (11.8-14.3); White Blood Cell 10.1 10^3/uL (4.4-10.8)
[2020-07-26 12:10] LABS: Albumin 3.8 g/dL (3.4-5.0); Calcium 8.7 mg/dL (8.5-10.1); Potassium 3.9 mmol/L (3.5-5.1)
[2020-07-26 12:15] LABS: BUN/Creatinine Ratio 12.8; Bilirubin, Total 1.4 mg/dL (0.2-1.0); Magnesium 2.5 mg/dL (1.6-2.6); Total Protein 7.5 g/dL (6.4-8.2)
== END | disposition home or self-care (01) ==
LOC: CHF HDHVI 10:08
PROVIDERS: ATTEND Internal Medicine
DX: I27.21 Secondary pulmonary arterial hypertension (principal); R53.83 Other fatigue; R06.02 Shortness of breath; R11.0 Nausea; I11.0 Hypertensive heart disease with heart failure; I50.9 Heart failure, unspecified; E03.9 Hypothyroidism, unspecified; E11.9 Type 2 diabetes mellitus without complications; E66.9 Obesity, unspecified; Z79.899 Other long term (current) drug therapy
CPT/HCPCS: 36415; 80053; 83735; 85025; 96372; G0463; J3420

== ENCOUNTER → 2020-08-02 | Outpatient (CLI) | payer MEDICAID ==
[~2020-08-02] MED LIST changes: -CYANOCOBALAMIN (B-12) 1000 MCG/1 ML VIAL IM ONE; -CYANOCOBALAMIN (B-12) 1000 MCG/1 ML VIAL ONE
[2020-08-02 10:00] VITALS: BP 111/66
--- NOTE | 2020-08-02 10:00 | NUR ---
CLINIC PT ARRIVED TO THE CHF CLINIC FOR WEEKLY PAH EVAL. A/OX4, AMBULATORY, BREATHING IS EVEN AND UNLABORED. PT IS ON HOME O2 5L N/C. PT STATES HE FEELS BETTER THAN HE DID ON HIS LAST VISIT LAST WEEK.
--- NOTE | 2020-08-02 10:15 | NUR ---
LABS DRAWN AND SENT
--- NOTE | 2020-08-02 10:29 | NUR ---
6MWT PT WALKED 210M TOTAL WHICH IS NO CHANGE SINCE HIS LAST 6MWT ON 04/12/20.
--- NOTE | 2020-08-02 10:50 | NUR ---
PT NOT FEELING WELL AND STATED HE DID NOT EAT THIS AM. ACCU CHECK DONE, FASTING GLUCOSE 72
[2020-08-02 10:59] VITALS: BP 108/65
--- NOTE | 2020-08-02 10:59 | NUR ---
Discharge Instructions See e-MAR for any mediations given with this visit. Patient education given on disease process. Patient verbalized understanding. Previous labs reviewed. Patient discharged in stable condition with after care instructions and follow up appointment. IN 1 WEEK. NOTE 6MWT DONE BY EVONNE GUILLAUME 210M DONE
[2020-08-02 13:11] LABS: Basophils # (auto) 0 10 ^3/uL (0-0.2); Basophils % (auto) 0.5 % (0.0-2.0); Eosinophils # (auto) 0.2 10 ^3/uL (0-0.8); Eosinophils % (auto) 2.3 % (0.0-7.0); Hematocrit 43.1 % (41.0-53.0); Hemoglobin 14.7 g/dL (13.5-17.5); Lymphocytes # (auto) 1.2 10 ^3/uL (0.4-5.4); Lymphocytes % (auto) 11.1 % (10.0-50.0); Mean Corpuscular Hemoglobin 30.8 pg (28.0-32.0); Mean Corpuscular Hgb Conc. 34.2 g/dL (32.0-36.0); Mean Corpuscular Volume 90.2 fL (80.0-100.0); Monocytes # (auto) 0.9 10 ^3/uL (0-1.3); Monocytes % (auto) 8.8 % (0.0-12.0); Neutrophils # (auto) 8.2 10 ^3/uL (1.6-8.6); Neutrophils % (auto) 77.3 % (37.0-80.0); Platelet Count (auto) 216 10^3/uL (140-450); Red Blood Cells 4.78 10^6/uL (4.5-5.90); Red Cell Distribution Width 15.5 % (11.8-14.3); White Blood Cell 10.6 10^3/uL (4.4-10.8)
[2020-08-02 13:17] LABS: BUN/Creatinine Ratio 10.9; Calcium 8.4 mg/dL (8.5-10.1); Potassium 3.8 mmol/L (3.5-5.1)
== END | disposition home or self-care (01) ==
LOC: CHF HDHVI 09:56
PROVIDERS: ATTEND Internal Medicine Cardiovascular Disease
DX: I27.0 Primary pulmonary hypertension (principal); E11.9 Type 2 diabetes mellitus without complications; R53.83 Other fatigue; R06.02 Shortness of breath
CPT/HCPCS: 36415; 80048; 82962; 84403; 85025; 94618; G0463

== ENCOUNTER → 2020-08-09 | Outpatient (CLI) | payer MEDICAID ==
[~2020-08-09] MED LIST changes: +CYANOCOBALAMIN (B-12) 1000 MCG/1 ML VIAL IM ONE; +CYANOCOBALAMIN (B-12) 1000 MCG/1 ML VIAL ONE
[2020-08-09 09:45] VITALS: BP 117/68
--- NOTE | 2020-08-09 09:45 | NUR ---
PATIENT IN CLINIC FOR SCHEDULED WEEKLY PAH CHECK UP, AAOx4, AMBULATORY, ON HOME O2 5 LPM N/C. PATIENT STATES THAT HE WAS SOB ON THURSDAY WITHOUT AN INCREASE IN ACTIVITY, PATIENT RECENTLY MOVED UP TO 5 LPM, PATIENT STATES HE DOES NOT HAVE AN O2 HUMIDIFIER. STATES HIS NOSE HAS BEEN CLOGGED UP AND ASKED FOR A SIMPLE MASK FOR AT HOME.
[2020-08-09 10:18] VITALS: BP 113/68
--- NOTE | 2020-08-09 10:18 | NUR ---
Discharge Instructions See e-MAR for any mediations given with this visit. Patient education given on disease process. Patient verbalized understanding. Previous labs reviewed. Patient discharged in stable condition with after care instructions and follow up appointment IN ONE WEEK. NOTE B12 IM L DELTOID ADMIN BY EVONNE GUILLAUME. CALLED KENNY AT [facility] TO ARRANGE FOR HUMIDIFIER AND SIMPLE MASK FOR HOME DELIVERY, HUMIDIFIER ARRANGED BUT SIMPLE MASK MAY TAKE SOME TIME, PATIENT UPDATED, VERBALIZED UNDERSTANDING.
== END | disposition home or self-care (01) ==
LOC: CHF HDHVI 09:54
PROVIDERS: ATTEND Internal Medicine
DX: I27.21 Secondary pulmonary arterial hypertension (principal); R53.83 Other fatigue; R06.02 Shortness of breath; I11.0 Hypertensive heart disease with heart failure; I50.9 Heart failure, unspecified; E03.9 Hypothyroidism, unspecified; E66.9 Obesity, unspecified; Z79.899 Other long term (current) drug therapy
CPT/HCPCS: 96372; G0463; J3420

== ENCOUNTER → 2020-08-16 | Outpatient (CLI) | payer MEDICAID ==
[~2020-08-16] VITALS: Ht 30.5 cm; Wt 0.5 kg
[~2020-08-16] MED LIST changes: -CYANOCOBALAMIN (B-12) 1000 MCG/1 ML VIAL IM ONE; -CYANOCOBALAMIN (B-12) 1000 MCG/1 ML VIAL ONE; +TESTOSTERONE CYPIONATE 200 MG/ML 1ML VIAL IM ONE
[2020-08-16 09:54] VITALS: BP 108/61
--- NOTE | 2020-08-16 09:54 | NUR ---
CLINIC PT ARRIVED TO THE CLINIC FOR SCHEDULED WEEKLY PAH Lani AMOR/CHRISTINE4, AMBULATORY, PT ARRIVED ON HOME O2 6L N/C. BREATHING IS EVEN AND UNLABORED.
--- NOTE | 2020-08-16 10:15 | NUR ---
LABS DRAWN AND SENT
[2020-08-16 10:23] VITALS: BP 98/57
--- NOTE | 2020-08-16 10:23 | NUR ---
Discharge Instructions See e-MAR for any mediations given with this visit. Patient education given on disease process. Patient verbalized understanding. Previous labs reviewed. Patient discharged in stable condition with after care instructions and follow up appointment IN 1 WEEK. NOTE TESTOSTERONE IM ADMIN BY EVONNE GARZA LOT#[id number] EXP 10/16
[2020-08-16 12:16] LABS: Potassium 3.8 mmol/L (3.5-5.1)
== END | disposition home or self-care (01) ==
LOC: CHF HDHVI 10:02
PROVIDERS: ATTEND Internal Medicine Cardiovascular Disease
DX: E29.1 Testicular hypofunction (principal); I27.21 Secondary pulmonary arterial hypertension; I11.0 Hypertensive heart disease with heart failure; I50.9 Heart failure, unspecified; R53.83 Other fatigue; R06.02 Shortness of breath
CPT/HCPCS: 36415; 82565; 83036; 83880; 84132; 84520; 96372; G0463; J1071

== ENCOUNTER → 2020-08-23 | Outpatient (CLI) | payer MEDICAID ==
[~2020-08-23] MED LIST changes: -TESTOSTERONE CYPIONATE 200 MG/ML 1ML VIAL IM ONE
[2020-08-23 09:58] VITALS: BP 118/70
[2020-08-23 11:15] VITALS: BP 98/65
== END | disposition home or self-care (01) ==
LOC: CHF HDHVI 09:59
PROVIDERS: ATTEND Internal Medicine Cardiovascular Disease
DX: I27.21 Secondary pulmonary arterial hypertension (principal); R06.02 Shortness of breath; E11.9 Type 2 diabetes mellitus without complications; E78.5 Hyperlipidemia, unspecified; R53.83 Other fatigue
CPT/HCPCS: 93005; G0463

== ENCOUNTER → 2020-08-30 | Outpatient (CLI) | payer MEDICAID ==
[~2020-08-30] MED LIST changes: +CYANOCOBALAMIN (B-12) 1000 MCG/1 ML VIAL IM ONE; +CYANOCOBALAMIN (B-12) 1000 MCG/1 ML VIAL ONE
[2020-08-30 10:12] VITALS: BP 103/61
[2020-08-30 10:50] VITALS: BP 108/70
[2020-08-30 12:20] LABS: Potassium 3.9 mmol/L (3.5-5.1)
[2020-08-30 12:53] LABS: BUN/Creatinine Ratio 18.5; Calcium 8.8 mg/dL (8.5-10.1); Magnesium 2.3 mg/dL (1.6-2.6)
== END | disposition home or self-care (01) ==
LOC: CHF HDHVI 10:13
PROVIDERS: ATTEND Internal Medicine Cardiovascular Disease
DX: I27.21 Secondary pulmonary arterial hypertension (principal); R53.83 Other fatigue; I11.0 Hypertensive heart disease with heart failure; I50.9 Heart failure, unspecified; E78.5 Hyperlipidemia, unspecified; E11.9 Type 2 diabetes mellitus without complications; E03.9 Hypothyroidism, unspecified; E66.9 Obesity, unspecified; Z79.899 Other long term (current) drug therapy
CPT/HCPCS: 36415; 80048; 83735; 96372; G0463; J3420

== ENCOUNTER → 2020-09-06 | Outpatient (CLI) | payer MEDICAID ==
[~2020-09-06] MED LIST changes: -CYANOCOBALAMIN (B-12) 1000 MCG/1 ML VIAL IM ONE; -CYANOCOBALAMIN (B-12) 1000 MCG/1 ML VIAL ONE; +TESTOSTERONE CYPIONATE 200 MG/ML 1ML VIAL IM ONE
[2020-09-06 09:36] VITALS: BP 106/64
[2020-09-06 11:28] VITALS: BP 108/66
[2020-09-06 11:54] LABS: Basophils # (auto) 0 10 ^3/uL (0-0.2); Basophils % (auto) 0.5 % (0.0-2.0); Eosinophils # (auto) 0.2 10 ^3/uL (0-0.8); Eosinophils % (auto) 2.4 % (0.0-7.0); Hematocrit 45.1 % (41.0-53.0); Hemoglobin 14.7 g/dL (13.5-17.5); Lymphocytes # (auto) 1.5 10 ^3/uL (0.4-5.4); Lymphocytes % (auto) 17.7 % (10.0-50.0); Mean Corpuscular Hemoglobin 29.8 pg (28.0-32.0); Mean Corpuscular Hgb Conc. 32.6 g/dL (32.0-36.0); Mean Corpuscular Volume 91.4 fL (80.0-100.0); Monocytes # (auto) 0.8 10 ^3/uL (0-1.3); Monocytes % (auto) 9.2 % (0.0-12.0); Neutrophils # (auto) 5.8 10 ^3/uL (1.6-8.6); Neutrophils % (auto) 70.2 % (37.0-80.0); Nucleated Red Blood Cells % 0.1 %; Platelet Count (auto) 211 10^3/uL (140-450); Red Blood Cells 4.93 10^6/uL (4.5-5.90); Red Cell Distribution Width 16.4 % (11.8-14.3); White Blood Cell 8.2 10^3/uL (4.4-10.8)
[2020-09-06 12:14] LABS: Albumin 3.7 g/dL (3.4-5.0); Calcium 8.8 mg/dL (8.5-10.1); Magnesium 2.4 mg/dL (1.6-2.6); Potassium 3.9 mmol/L (3.5-5.1)
[2020-09-06 12:18] LABS: BUN/Creatinine Ratio 15.3; Total Protein 7.1 g/dL (6.4-8.2)
== END | disposition home or self-care (01) ==
LOC: CHF HDHVI 09:37
PROVIDERS: ATTEND Internal Medicine Cardiovascular Disease
DX: I27.21 Secondary pulmonary arterial hypertension (principal); I11.0 Hypertensive heart disease with heart failure; I50.9 Heart failure, unspecified; E03.9 Hypothyroidism, unspecified; E11.9 Type 2 diabetes mellitus without complications; E29.1 Testicular hypofunction; E66.9 Obesity, unspecified; Z79.899 Other long term (current) drug therapy
CPT/HCPCS: 36415; 80053; 83735; 83880; 85025; 94618; 96372; G0463; J1071

== ENCOUNTER → 2020-09-13 | Outpatient (CLI) | payer MEDICAID ==
[~2020-09-13] MED LIST changes: +CYANOCOBALAMIN (B-12) 1000 MCG/1 ML VIAL IM ONE; +CYANOCOBALAMIN (B-12) 1000 MCG/1 ML VIAL ONE; -TESTOSTERONE CYPIONATE 200 MG/ML 1ML VIAL IM ONE
[2020-09-13 10:15] VITALS: BP 116/70
[2020-09-13 11:01] VITALS: BP 107/63
== END | disposition home or self-care (01) ==
LOC: CHF HDHVI 10:24
PROVIDERS: ATTEND Internal Medicine Cardiovascular Disease
DX: I27.21 Secondary pulmonary arterial hypertension (principal); R53.83 Other fatigue; R06.02 Shortness of breath; I11.0 Hypertensive heart disease with heart failure; I50.9 Heart failure, unspecified; E03.9 Hypothyroidism, unspecified; E29.1 Testicular hypofunction; E11.9 Type 2 diabetes mellitus without complications; E66.9 Obesity, unspecified; Z79.899 Other long term (current) drug therapy
CPT/HCPCS: 96372; G0463; J3420

== ENCOUNTER → 2020-09-19 | Outpatient (CLI) | payer MEDICAID ==
[~2020-09-19] VITALS: Ht 30.5 cm; Wt 104.9 kg
[2020-09-19 09:49] VITALS: BP 100/62
--- NOTE | 2020-09-19 09:49 | NUR ---
CLINIC PT ARRIVED TO THE CHF CLINIC FOR WEEKLY SCHEDULED PAH EVAL FOR WORSENING PAH, A/OX4, AMBULATORY, BREATHING IS EVEN AND UNLABORED. PT ARRIVED ON HOME O2 5L N/C.
--- NOTE | 2020-09-19 10:10 | NUR ---
LABS DRAWN AND SENT
[2020-09-19 10:34] VITALS: BP 100/63
--- NOTE | 2020-09-19 10:34 | NUR ---
Discharge Instructions See e-MAR for any mediations given with this visit. Patient education given on disease process. Patient verbalized understanding. Previous labs reviewed. Patient discharged in stable condition with after care instructions and follow up appointment IN 1 WEEK. NOTE VIT B12 IM ADMIN BY EVONNE MARCH LOT#[id number] EXP 02/14
[2020-09-19 12:09] LABS: Basophils # (auto) 0.1 10 ^3/uL (0-0.2); Basophils % (auto) 0.7 % (0.0-2.0); Eosinophils # (auto) 0.2 10 ^3/uL (0-0.8); Eosinophils % (auto) 2.9 % (0.0-7.0); Hematocrit 49.1 % (41.0-53.0); Hemoglobin 16.9 g/dL (13.5-17.5); Lymphocytes # (auto) 1.5 10 ^3/uL (0.4-5.4); Mean Corpuscular Hemoglobin 31.2 pg (28.0-32.0); Mean Corpuscular Hgb Conc. 34.3 g/dL (32.0-36.0); Monocytes # (auto) 0.7 10 ^3/uL (0-1.3); Monocytes % (auto) 9.1 % (0.0-12.0); Neutrophils # (auto) 4.9 10 ^3/uL (1.6-8.6); Neutrophils % (auto) 67.3 % (37.0-80.0); Nucleated Red Blood Cells % 0.2 %; Platelet Count (auto) 233 10^3/uL (140-450); Red Cell Distribution Width 16.3 % (11.8-14.3); White Blood Cell 7.3 10^3/uL (4.4-10.8)
[2020-09-19 12:21] LABS: Potassium 3.8 mmol/L (3.5-5.1)
[2020-09-19 12:28] LABS: BUN/Creatinine Ratio 16.2; Calcium 8.9 mg/dL (8.5-10.1); Magnesium 2.4 mg/dL (1.6-2.6)
== END | disposition home or self-care (01) ==
LOC: CHF HDHVI 09:57
PROVIDERS: ATTEND Internal Medicine Cardiovascular Disease
DX: I27.21 Secondary pulmonary arterial hypertension (principal); I11.0 Hypertensive heart disease with heart failure; I50.9 Heart failure, unspecified; R53.83 Other fatigue; R06.02 Shortness of breath; E03.9 Hypothyroidism, unspecified; E11.9 Type 2 diabetes mellitus without complications; E78.5 Hyperlipidemia, unspecified; Z79.899 Other long term (current) drug therapy
CPT/HCPCS: 36415; 80048; 83735; 85025; 96372; G0463; J3420

== ENCOUNTER → 2020-10-24 | Outpatient (CLI) | payer MEDICAID ==
[~2020-10-24] MED LIST changes: -BENA40TA7 PO; +BENA40TA8 PO; +TESTOSTERONE CYPIONATE 200 MG/ML 1ML VIAL IM ONE
[2020-10-24 10:00] VITALS: BP 98/62
[2020-10-24 11:47] VITALS: BP 99/71
[2020-10-24 12:16] LABS: BUN/Creatinine Ratio 15.5; Calcium 9.7 mg/dL (8.5-10.1); Magnesium 2.5 mg/dL (1.6-2.6); Potassium 3.8 mmol/L (3.5-5.1)
[2020-10-24 12:27] LABS: Basophils # (auto) 0.1 10 ^3/uL (0-0.2); Basophils % (auto) 0.6 % (0.0-2.0); Eosinophils # (auto) 0.2 10 ^3/uL (0-0.8); Eosinophils % (auto) 2.1 % (0.0-7.0); Hematocrit 52.7 % (41.0-53.0); Hemoglobin 18.3 g/dL (13.5-17.5); Lymphocytes # (auto) 1.6 10 ^3/uL (0.4-5.4); Lymphocytes % (auto) 19.1 % (10.0-50.0); Mean Corpuscular Hemoglobin 31.4 pg (28.0-32.0); Mean Corpuscular Hgb Conc. 34.8 g/dL (32.0-36.0); Mean Corpuscular Volume 90.2 fL (80.0-100.0); Monocytes # (auto) 0.5 10 ^3/uL (0-1.3); Monocytes % (auto) 5.6 % (0.0-12.0); Neutrophils # (auto) 6.2 10 ^3/uL (1.6-8.6); Neutrophils % (auto) 72.6 % (37.0-80.0); Nucleated Red Blood Cells % 0.1 %; Red Blood Cells 5.84 10^6/uL (4.5-5.90); White Blood Cell 8.5 10^3/uL (4.4-10.8)
== END | disposition home or self-care (01) ==
LOC: CHF HDHVI 10:14
PROVIDERS: ATTEND Internal Medicine Cardiovascular Disease
DX: I27.21 Secondary pulmonary arterial hypertension (principal); I11.0 Hypertensive heart disease with heart failure; I50.23 Acute on chronic systolic (congestive) heart failure; E29.1 Testicular hypofunction; R53.83 Other fatigue; R06.02 Shortness of breath; E03.9 Hypothyroidism, unspecified; E11.9 Type 2 diabetes mellitus without complications; E66.9 Obesity, unspecified; Z79.899 Other long term (current) drug therapy
CPT/HCPCS: 36415; 80048; 83735; 83880; 85025; 96372; G0463; J1071; J3420

== ENCOUNTER → 2020-11-01 | Outpatient (CLI) | payer MEDICAID ==
[~2020-11-01] MED LIST changes: -CYANOCOBALAMIN (B-12) 1000 MCG/1 ML VIAL IM ONE; -CYANOCOBALAMIN (B-12) 1000 MCG/1 ML VIAL ONE; -TESTOSTERONE CYPIONATE 200 MG/ML 1ML VIAL IM ONE
[2020-11-01 09:58] VITALS: BP 109/68
[2020-11-01 10:30] VITALS: BP 105/68
[2020-11-01 11:52] LABS: Potassium 3.9 mmol/L (3.5-5.1)
== END | disposition home or self-care (01) ==
LOC: CHF HDHVI 09:54
PROVIDERS: ATTEND Internal Medicine Cardiovascular Disease
DX: I27.20 Pulmonary hypertension, unspecified (principal)
CPT/HCPCS: 36415; 82565; 84132; 84520; G0463

== ENCOUNTER → 2020-11-08 | Outpatient (CLI) | payer MEDICAID ==
[~2020-11-08] MED LIST changes: +BENA40TA7 PO; -BENA40TA8 PO; +CYANOCOBALAMIN (B-12) 1000 MCG/1 ML VIAL IM ONE; +CYANOCOBALAMIN (B-12) 1000 MCG/1 ML VIAL ONE
[2020-11-08 08:45] VITALS: BP 116/69
[2020-11-08 10:19] VITALS: BP 108/65
[2020-11-08 11:40] LABS: Basophils # (auto) 0 10 ^3/uL (0-0.2); Basophils % (auto) 0.5 % (0.0-2.0); Eosinophils # (auto) 0.2 10 ^3/uL (0-0.8); Eosinophils % (auto) 1.7 % (0.0-7.0); Hemoglobin 15.9 g/dL (13.5-17.5); Lymphocytes # (auto) 1.5 10 ^3/uL (0.4-5.4); Lymphocytes % (auto) 16.8 % (10.0-50.0); Mean Corpuscular Hemoglobin 31.1 pg (28.0-32.0); Mean Corpuscular Hgb Conc. 34.6 g/dL (32.0-36.0); Mean Corpuscular Volume 89.9 fL (80.0-100.0); Monocytes # (auto) 0.7 10 ^3/uL (0-1.3); Monocytes % (auto) 8.4 % (0.0-12.0); Neutrophils # (auto) 6.4 10 ^3/uL (1.6-8.6); Neutrophils % (auto) 72.6 % (37.0-80.0); Platelet Count (auto) 193 10^3/uL (140-450); Red Blood Cells 5.12 10^6/uL (4.5-5.90); Red Cell Distribution Width 15.4 % (11.8-14.3); White Blood Cell 8.9 10^3/uL (4.4-10.8)
[2020-11-08 12:00] LABS: Albumin 3.8 g/dL (3.4-5.0); Calcium 8.8 mg/dL (8.5-10.1); Magnesium 2.3 mg/dL (1.6-2.6); Potassium 3.8 mmol/L (3.5-5.1)
[2020-11-08 12:03] LABS: BUN/Creatinine Ratio 23.4; Bilirubin, Total 0.8 mg/dL (0.2-1.0); Total Protein 7.9 g/dL (6.4-8.2)
== END | disposition home or self-care (01) ==
LOC: CHF HDHVI 09:58
PROVIDERS: ATTEND Internal Medicine Cardiovascular Disease
DX: I27.21 Secondary pulmonary arterial hypertension (principal); J44.9 Chronic obstructive pulmonary disease, unspecified; R53.83 Other fatigue; I11.0 Hypertensive heart disease with heart failure; I50.9 Heart failure, unspecified; E03.9 Hypothyroidism, unspecified; E11.9 Type 2 diabetes mellitus without complications; E78.5 Hyperlipidemia, unspecified; E66.9 Obesity, unspecified; Z79.899 Other long term (current) drug therapy
CPT/HCPCS: 36415; 80053; 83735; 83880; 85025; 96372; G0463; J3420

== ENCOUNTER → 2020-11-15 | Outpatient (CLI) | payer MEDICAID ==
[~2020-11-15] MED LIST changes: -BENA40TA7 PO; +BENA40TA8 PO; -CYANOCOBALAMIN (B-12) 1000 MCG/1 ML VIAL IM ONE; -CYANOCOBALAMIN (B-12) 1000 MCG/1 ML VIAL ONE
[2020-11-15 10:09] VITALS: BP 99/61
[2020-11-15 11:00] VITALS: BP 104/67
[2020-11-15 11:30] LABS: Basophils # (auto) 0 10 ^3/uL (0-0.2); Basophils % (auto) 0.4 % (0.0-2.0); Eosinophils # (auto) 0.2 10 ^3/uL (0-0.8); Hematocrit 49.9 % (41.0-53.0); Hemoglobin 17.2 g/dL (13.5-17.5); Lymphocytes # (auto) 1.6 10 ^3/uL (0.4-5.4); Lymphocytes % (auto) 16.9 % (10.0-50.0); Mean Corpuscular Hgb Conc. 34.5 g/dL (32.0-36.0); Mean Corpuscular Volume 89.8 fL (80.0-100.0); Monocytes # (auto) 0.8 10 ^3/uL (0-1.3); Neutrophils % (auto) 72.7 % (37.0-80.0); Nucleated Red Blood Cells % 0.3 %; Platelet Count (auto) 222 10^3/uL (140-450); Red Blood Cells 5.55 10^6/uL (4.5-5.90); Red Cell Distribution Width 15.4 % (11.8-14.3); White Blood Cell 9.7 10^3/uL (4.4-10.8)
[2020-11-15 11:34] LABS: Potassium 4.2 mmol/L (3.5-5.1)
[2020-11-15 11:40] LABS: BUN/Creatinine Ratio 15.1; Calcium 8.7 mg/dL (8.5-10.1)
== END | disposition home or self-care (01) ==
LOC: CHF HDHVI 10:18
PROVIDERS: ATTEND Internal Medicine
DX: I27.0 Primary pulmonary hypertension (principal); D64.9 Anemia, unspecified
CPT/HCPCS: 36415; 80048; 85025; G0463

== ENCOUNTER → 2020-11-27 | Outpatient (CLI) | payer MEDICAID ==
[2020-11-27 11:00] VITALS: BP 105/71
[2020-11-27 14:30] VITALS: BP 109/72
[2020-11-27 15:43] LABS: Albumin 4.1 g/dL (3.4-5.0); Calcium 8.8 mg/dL (8.5-10.1); Magnesium 2.3 mg/dL (1.6-2.6)
[2020-11-27 15:46] LABS: BUN/Creatinine Ratio 20.3; Bilirubin, Total 0.7 mg/dL (0.2-1.0); Total Protein 8.4 g/dL (6.4-8.2)
== END | disposition home or self-care (01) ==
LOC: CHF HDHVI 11:20
PROVIDERS: ATTEND Internal Medicine
DX: I27.0 Primary pulmonary hypertension (principal); D64.9 Anemia, unspecified; R53.83 Other fatigue; R06.02 Shortness of breath
CPT/HCPCS: 36415; 80053; 83735; 83880; 94618; G0463

== ENCOUNTER → 2020-12-11 | Outpatient (CLI) | payer MEDICAID ==
[~2020-12-11] MED LIST changes: +TESTOSTERONE CYPIONATE 200 MG/ML 1ML VIAL IM ONE
[2020-12-11 09:25] VITALS: BP 108/64
[2020-12-11 10:00] VITALS: BP 105/62
== END | disposition home or self-care (01) ==
LOC: CHF HDHVI 09:24
PROVIDERS: ATTEND Internal Medicine Cardiovascular Disease
DX: E29.1 Testicular hypofunction (principal); I27.0 Primary pulmonary hypertension; I50.22 Chronic systolic (congestive) heart failure; J44.9 Chronic obstructive pulmonary disease, unspecified; E03.9 Hypothyroidism, unspecified; E11.9 Type 2 diabetes mellitus without complications; Z79.899 Other long term (current) drug therapy
CPT/HCPCS: 96372; G0463; J1071

== ENCOUNTER → 2021-01-01 | Outpatient (CLI) | payer MEDICAID ==
[~2021-01-01] MED LIST changes: +CYANOCOBALAMIN (B-12) 1000 MCG/1 ML VIAL IM ONE; +CYANOCOBALAMIN (B-12) 1000 MCG/1 ML VIAL ONE
[2021-01-01 09:45] VITALS: BP 100/60
[2021-01-01 11:02] VITALS: BP 98/64
[2021-01-01 11:04] LABS: Band Neutrophils % (manual) 0; Basophils % (manual) 0 (0.0-2.0); Blast Cells 0; Eosinophils % (manual) 0 (0-7); Metamyelocytes % 0; Myelocytes % 0; Promyelocytes % 0; Reactive Lymphocytes 0
[2021-01-01 11:53] LABS: Basophils # (auto) 0 10 ^3/uL (0-0.2); Eosinophils # (auto) 0.1 10 ^3/uL (0-0.8); Lymphocytes # (auto) 1.5 10 ^3/uL (0.4-5.4); Monocytes # (auto) 0.6 10 ^3/uL (0-1.3); Platelet Count (auto) 215 10^3/uL (140-450)
[2021-01-01 11:58] LABS: Basophils % (auto) 0.6 % (0.0-2.0); Eosinophils % (auto) 1.6 % (0.0-7.0); Hematocrit 52.1 % (41.0-53.0); Lymphocytes % (auto) 19.9 % (10.0-50.0); Mean Corpuscular Hemoglobin 31.3 pg (28.0-32.0); Mean Corpuscular Hgb Conc. 34.6 g/dL (32.0-36.0); Mean Corpuscular Volume 90.6 fL (80.0-100.0); Neutrophils # (auto) 5.2 10 ^3/uL (1.6-8.6); Neutrophils % (auto) 69.9 % (37.0-80.0); Nucleated Red Blood Cells % 0.2 %; Red Blood Cells 5.75 10^6/uL (4.5-5.90); Red Cell Distribution Width 15.3 % (11.8-14.3); White Blood Cell 7.4 10^3/uL (4.4-10.8)
[2021-01-01 12:35] LABS: Albumin 4.2 g/dL (3.4-5.0); Calcium 9.3 mg/dL (8.5-10.1); Magnesium 2.6 mg/dL (1.6-2.6)
[2021-01-01 12:38] LABS: BUN/Creatinine Ratio 19.5; Bilirubin, Total 0.9 mg/dL (0.2-1.0); Total Protein 8.2 g/dL (6.4-8.2)
[2021-01-01 13:26] LABS: Lymphocytes % (manual) 26 (10.0-50.0); Monocytes % (manual) 4 (0-12)
== END | disposition home or self-care (01) ==
LOC: CHF HDHVI 10:07
PROVIDERS: ATTEND Internal Medicine Cardiovascular Disease
DX: I27.20 Pulmonary hypertension, unspecified (principal); E29.1 Testicular hypofunction; I11.0 Hypertensive heart disease with heart failure; I50.22 Chronic systolic (congestive) heart failure; E03.9 Hypothyroidism, unspecified; E66.9 Obesity, unspecified; Z79.899 Other long term (current) drug therapy
CPT/HCPCS: 36415; 80053; 83735; 85025; 96372; G0463; J1071; J3420

== ENCOUNTER → 2021-01-29 | Outpatient (CLI) | payer MEDICAID ==
[~2021-01-29] MED LIST changes: -TESTOSTERONE CYPIONATE 200 MG/ML 1ML VIAL IM ONE
[2021-01-29 11:00] VITALS: BP 109/63
[2021-01-29 11:30] VITALS: BP 102/64
[2021-01-29 11:47] LABS: Basophils # (auto) 0 10 ^3/uL (0-0.2); Basophils % (auto) 0.5 % (0.0-2.0); Eosinophils # (auto) 0.1 10 ^3/uL (0-0.8); Eosinophils % (auto) 1.7 % (0.0-7.0); Hemoglobin 16.1 g/dL (13.5-17.5); Lymphocytes # (auto) 1.4 10 ^3/uL (0.4-5.4); Lymphocytes % (auto) 20.7 % (10.0-50.0); Mean Corpuscular Hemoglobin 31.1 pg (28.0-32.0); Mean Corpuscular Hgb Conc. 34.3 g/dL (32.0-36.0); Mean Corpuscular Volume 90.8 fL (80.0-100.0); Monocytes # (auto) 0.6 10 ^3/uL (0-1.3); Monocytes % (auto) 8.1 % (0.0-12.0); Neutrophils # (auto) 4.8 10 ^3/uL (1.6-8.6); Nucleated Red Blood Cells % 0.3 %; Platelet Count (auto) 209 10^3/uL (140-450); Red Blood Cells 5.18 10^6/uL (4.5-5.90); Red Cell Distribution Width 15.3 % (11.8-14.3); White Blood Cell 6.9 10^3/uL (4.4-10.8)
[2021-01-29 12:10] LABS: BUN/Creatinine Ratio 18.9; Potassium 3.7 mmol/L (3.5-5.1)
[2021-01-29 12:11] LABS: Albumin 4.1 g/dL (3.4-5.0); Bilirubin, Total 1.3 mg/dL (0.2-1.0); Magnesium 2.6 mg/dL (1.6-2.6); Total Protein 7.4 g/dL (6.4-8.2)
== END | disposition home or self-care (01) ==
LOC: CHF HDHVI 10:53
PROVIDERS: ATTEND Internal Medicine Cardiovascular Disease
DX: I27.21 Secondary pulmonary arterial hypertension (principal); R53.83 Other fatigue; I11.0 Hypertensive heart disease with heart failure; I50.22 Chronic systolic (congestive) heart failure; E11.9 Type 2 diabetes mellitus without complications; E03.9 Hypothyroidism, unspecified; J44.9 Chronic obstructive pulmonary disease, unspecified; Z79.899 Other long term (current) drug therapy
CPT/HCPCS: 36415; 80053; 83735; 85025; 96372; G0463; J3420

== ENCOUNTER → 2021-02-19 | Outpatient (CLI) | payer MEDICAID ==
[2021-02-19 09:40] VITALS: BP 103/64
[2021-02-19 10:30] VITALS: BP 113/69
[2021-02-19 11:47] LABS: Basophils # (auto) 0 10 ^3/uL (0-0.2); Hemoglobin 17.7 g/dL (13.5-17.5); Lymphocytes # (auto) 1.5 10 ^3/uL (0.4-5.4); Monocytes # (auto) 0.5 10 ^3/uL (0-1.3); Neutrophils # (auto) 6.5 10 ^3/uL (1.6-8.6)
[2021-02-19 11:52] LABS: Basophils % (auto) 0.5 % (0.0-2.0); Eosinophils # (auto) 0.2 10 ^3/uL (0-0.8); Eosinophils % (auto) 1.8 % (0.0-7.0); Hematocrit 50.9 % (41.0-53.0); Mean Corpuscular Hemoglobin 31.5 pg (28.0-32.0); Mean Corpuscular Hgb Conc. 34.9 g/dL (32.0-36.0); Mean Corpuscular Volume 90.4 fL (80.0-100.0); Monocytes % (auto) 5.7 % (0.0-12.0); Nucleated Red Blood Cells % 0.1 %; Platelet Count (auto) 208 10^3/uL (140-450); Red Blood Cells 5.63 10^6/uL (4.5-5.90); Red Cell Distribution Width 14.9 % (11.8-14.3); White Blood Cell 8.6 10^3/uL (4.4-10.8)
[2021-02-19 12:56] LABS: Alkaline Phosphatase 92 U/L (45-117); Aspartate Aminotransferase 17 U/L (15-37); Total Protein 8.1 g/dL (6.4-8.2)
[2021-02-19 13:02] LABS: Alanine Aminotransferase 29 U/L (16-61); Albumin 4.1 g/dL (3.4-5.0); Anion Gap 11 (5-15); BUN/Creatinine Ratio 22.4; Blood Urea Nitrogen 34 mg/dL (7-18); Calcium 9.1 mg/dL (8.5-10.1); Carbon Dioxide 20 mmol/L (21-32); Chloride 108 mmol/L (98-107); GFR African American 61 mL/min; GFR Non-African American 50 mL/min; Glucose 88 mg/dL (74-106); Magnesium 2.7 mg/dL (1.6-2.6); Potassium 3.8 mmol/L (3.5-5.1); Sodium 139 mmol/L (136-145)
== END | disposition home or self-care (01) ==
LOC: CHF HDHVI 09:43
PROVIDERS: ATTEND Internal Medicine Cardiovascular Disease
DX: I27.20 Pulmonary hypertension, unspecified (principal); E11.42 Type 2 diabetes mellitus with diabetic polyneuropathy; I11.0 Hypertensive heart disease with heart failure; I50.22 Chronic systolic (congestive) heart failure; J44.9 Chronic obstructive pulmonary disease, unspecified; E03.9 Hypothyroidism, unspecified; E66.9 Obesity, unspecified; Z79.899 Other long term (current) drug therapy
CPT/HCPCS: 36415; 80053; 83036; 83735; 85025; 96372; G0463; J3420

== ENCOUNTER → 2021-03-05 | Outpatient (CLI) | payer MEDICAID ==
[~2021-03-05] MED LIST changes: -CYANOCOBALAMIN (B-12) 1000 MCG/1 ML VIAL IM ONE; -CYANOCOBALAMIN (B-12) 1000 MCG/1 ML VIAL ONE
[2021-03-05 09:45] VITALS: BP 108/67
[2021-03-05 11:15] VITALS: BP 107/71
[2021-03-05 12:10] LABS: Basophils # (auto) 0.1 10 ^3/uL (0-0.2); Basophils % (auto) 0.8 % (0.0-2.0); Eosinophils # (auto) 0.3 10 ^3/uL (0-0.8); Hematocrit 48.2 % (41.0-53.0); Hemoglobin 16.6 g/dL (13.5-17.5); Lymphocytes # (auto) 1.4 10 ^3/uL (0.4-5.4); Lymphocytes % (auto) 16.4 % (10.0-50.0); Mean Corpuscular Hemoglobin 31.2 pg (28.0-32.0); Mean Corpuscular Hgb Conc. 34.4 g/dL (32.0-36.0); Mean Corpuscular Volume 90.8 fL (80.0-100.0); Monocytes # (auto) 0.7 10 ^3/uL (0-1.3); Monocytes % (auto) 7.6 % (0.0-12.0); Neutrophils # (auto) 6.3 10 ^3/uL (1.6-8.6); Neutrophils % (auto) 72.2 % (37.0-80.0); Nucleated Red Blood Cells % 0.1 %; Platelet Count (auto) 214 10^3/uL (140-450); Red Blood Cells 5.31 10^6/uL (4.5-5.90); Red Cell Distribution Width 14.7 % (11.8-14.3); White Blood Cell 8.8 10^3/uL (4.4-10.8)
[2021-03-05 12:15] LABS: Potassium 4.1 mmol/L (3.5-5.1)
[2021-03-05 12:29] LABS: Albumin 4.1 g/dL (3.4-5.0); BUN/Creatinine Ratio 20.3; Calcium 8.6 mg/dL (8.5-10.1); Magnesium 2.5 mg/dL (1.6-2.6); Total Protein 7.8 g/dL (6.4-8.2)
== END | disposition home or self-care (01) ==
LOC: CHF HDHVI 09:41
PROVIDERS: ATTEND Internal Medicine Cardiovascular Disease
DX: I27.20 Pulmonary hypertension, unspecified (principal); R06.02 Shortness of breath; R53.83 Other fatigue
CPT/HCPCS: 36415; 71046; 80053; 83735; 85025; 94618; G0463

== ENCOUNTER → 2021-04-23 | Outpatient (CLI) | payer MEDICAID ==
[~2021-04-23] MED LIST changes: +CYANOCOBALAMIN (B-12) 1000 MCG/1 ML VIAL IM ONE; +CYANOCOBALAMIN (B-12) 1000 MCG/1 ML VIAL ONE
[2021-04-23 09:40] VITALS: BP 100/64
[2021-04-23 10:07] VITALS: BP 90/54
[2021-04-23 12:09] LABS: Basophils # (auto) 0 10 ^3/uL (0-0.2); Basophils % (auto) 0.7 % (0.0-2.0); Eosinophils # (auto) 0.2 10 ^3/uL (0-0.8); Eosinophils % (auto) 2.4 % (0.0-7.0); Hematocrit 49.7 % (41.0-53.0); Hemoglobin 17.2 g/dL (13.5-17.5); Lymphocytes # (auto) 1.3 10 ^3/uL (0.4-5.4); Lymphocytes % (auto) 19.1 % (10.0-50.0); Mean Corpuscular Hemoglobin 31.6 pg (28.0-32.0); Mean Corpuscular Hgb Conc. 34.7 g/dL (32.0-36.0); Monocytes # (auto) 0.6 10 ^3/uL (0-1.3); Monocytes % (auto) 8.5 % (0.0-12.0); Neutrophils # (auto) 4.7 10 ^3/uL (1.6-8.6); Neutrophils % (auto) 69.3 % (37.0-80.0); Nucleated Red Blood Cells % 0.1 %; Platelet Count (auto) 198 10^3/uL (140-450); Red Blood Cells 5.46 10^6/uL (4.5-5.90); White Blood Cell 6.8 10^3/uL (4.4-10.8)
[2021-04-23 12:22] LABS: Potassium 3.9 mmol/L (3.5-5.1)
[2021-04-23 12:39] LABS: Albumin 4.3 g/dL (3.4-5.0); BUN/Creatinine Ratio 16.9; Bilirubin, Total 1.3 mg/dL (0.2-1.0); Calcium 8.7 mg/dL (8.5-10.1); Magnesium 2.7 mg/dL (1.6-2.6); Total Protein 7.6 g/dL (6.4-8.2)
== END | disposition home or self-care (01) ==
LOC: CHF HDHVI 09:41
PROVIDERS: ATTEND Internal Medicine Cardiovascular Disease
DX: I27.21 Secondary pulmonary arterial hypertension (principal); R53.83 Other fatigue; R06.02 Shortness of breath; I11.0 Hypertensive heart disease with heart failure; I50.32 Chronic diastolic (congestive) heart failure; E11.42 Type 2 diabetes mellitus with diabetic polyneuropathy; J44.9 Chronic obstructive pulmonary disease, unspecified; E03.9 Hypothyroidism, unspecified; Z79.899 Other long term (current) drug therapy
CPT/HCPCS: 36415; 80053; 83735; 85025; 85049; 96372; G0463; J3420

== ENCOUNTER → 2021-05-21 | Outpatient (CLI) | payer MEDICAID ==
[2021-05-21 11:07] VITALS: BP 101/61
[2021-05-21 11:35] VITALS: BP 99/52
[2021-05-21 15:26] LABS: Basophils # (auto) 0.1 10 ^3/uL (0-0.2); Basophils % (auto) 0.7 % (0.0-2.0); Eosinophils # (auto) 0.2 10 ^3/uL (0-0.8); Eosinophils % (auto) 3.1 % (0.0-7.0); Hematocrit 51.5 % (41.0-53.0); Hemoglobin 17.6 g/dL (13.5-17.5); Lymphocytes # (auto) 1.7 10 ^3/uL (0.4-5.4); Mean Corpuscular Hemoglobin 30.6 pg (28.0-32.0); Mean Corpuscular Hgb Conc. 34.1 g/dL (32.0-36.0); Mean Corpuscular Volume 89.8 fL (80.0-100.0); Monocytes # (auto) 0.6 10 ^3/uL (0-1.3); Monocytes % (auto) 7.1 % (0.0-12.0); Neutrophils # (auto) 5.5 10 ^3/uL (1.6-8.6); Neutrophils % (auto) 68.1 % (37.0-80.0); Nucleated Red Blood Cells % 0.1 %; Red Blood Cells 5.74 10^6/uL (4.5-5.90); Red Cell Distribution Width 14.8 % (11.8-14.3); White Blood Cell 8.1 10^3/uL (4.4-10.8)
[2021-05-21 15:35] LABS: Albumin 4.5 g/dL (3.4-5.0); BUN/Creatinine Ratio 21.6; Calcium 9.2 mg/dL (8.5-10.1); Magnesium 2.5 mg/dL (1.6-2.6)
[2021-05-21 15:39] LABS: Total Protein 7.9 g/dL (6.4-8.2)
== END | disposition home or self-care (01) ==
LOC: CHF HDHVI 11:07
PROVIDERS: ATTEND Internal Medicine Cardiovascular Disease
DX: I27.21 Secondary pulmonary arterial hypertension (principal); R53.83 Other fatigue; I11.0 Hypertensive heart disease with heart failure; I50.32 Chronic diastolic (congestive) heart failure; J44.9 Chronic obstructive pulmonary disease, unspecified; E11.9 Type 2 diabetes mellitus without complications; E03.9 Hypothyroidism, unspecified; Z79.899 Other long term (current) drug therapy
CPT/HCPCS: 36415; 80053; 83036; 83735; 85025; 96372; G0463; J3420

== ENCOUNTER → 2021-05-28 | Outpatient (CLI) | payer MEDICAID ==
[~2021-05-28] MED LIST changes: -CYANOCOBALAMIN (B-12) 1000 MCG/1 ML VIAL IM ONE; -CYANOCOBALAMIN (B-12) 1000 MCG/1 ML VIAL ONE
== END | disposition home or self-care (01) ==
LOC: Rad HDHVI 11:50
PROVIDERS: ATTEND Internal Medicine Cardiovascular Disease
DX: I07.1 Rheumatic tricuspid insufficiency (principal); R00.2 Palpitations; R06.89 Other abnormalities of breathing
CPT/HCPCS: 93306

== ENCOUNTER → 2021-06-18 | Outpatient (CLI) | payer MEDICAID ==
[~2021-06-18] MED LIST changes: +CYANOCOBALAMIN (B-12) 1000 MCG/1 ML VIAL IM ONE; +CYANOCOBALAMIN (B-12) 1000 MCG/1 ML VIAL ONE
[2021-06-18 10:05] VITALS: BP 111/66
[2021-06-18 11:13] VITALS: BP 112/69
[2021-06-18 11:48] LABS: Basophils # (auto) 0 10 ^3/uL (0-0.2); Basophils % (auto) 0.4 % (0.0-2.0); Eosinophils # (auto) 0.4 10 ^3/uL (0-0.8); Eosinophils % (auto) 4.5 % (0.0-7.0); Hematocrit 49.6 % (41.0-53.0); Hemoglobin 17.3 g/dL (13.5-17.5); Lymphocytes # (auto) 1.5 10 ^3/uL (0.4-5.4); Mean Corpuscular Hemoglobin 31.2 pg (28.0-32.0); Mean Corpuscular Hgb Conc. 34.9 g/dL (32.0-36.0); Mean Corpuscular Volume 89.5 fL (80.0-100.0); Monocytes # (auto) 0.6 10 ^3/uL (0-1.3); Monocytes % (auto) 6.6 % (0.0-12.0); Neutrophils # (auto) 6.2 10 ^3/uL (1.6-8.6); Neutrophils % (auto) 71.5 % (37.0-80.0); Nucleated Red Blood Cells % 0.1 %; Red Blood Cells 5.54 10^6/uL (4.5-5.90); Red Cell Distribution Width 14.8 % (11.8-14.3); White Blood Cell 8.7 10^3/uL (4.4-10.8)
[2021-06-19 08:55] LABS: BUN/Creatinine Ratio 16.9; Calcium 9.5 mg/dL (8.5-10.1); Potassium 3.9 mmol/L (3.5-5.1)
[2021-06-19 09:59] LABS: Albumin 4.1 g/dL (3.4-5.0); Bilirubin, Total 0.9 mg/dL (0.2-1.0); Magnesium 2.5 mg/dL (1.6-2.6); Total Protein 8.4 g/dL (6.4-8.2)
== END | disposition home or self-care (01) ==
LOC: CHF HDHVI 10:08
PROVIDERS: ATTEND Internal Medicine Cardiovascular Disease
DX: I27.21 Secondary pulmonary arterial hypertension (principal); I11.0 Hypertensive heart disease with heart failure; I50.32 Chronic diastolic (congestive) heart failure; J44.9 Chronic obstructive pulmonary disease, unspecified; E03.9 Hypothyroidism, unspecified; E11.42 Type 2 diabetes mellitus with diabetic polyneuropathy; Z79.899 Other long term (current) drug therapy
CPT/HCPCS: 36415; 80053; 83735; 83880; 85025; 94618; 96372; G0463; J3420

== ENCOUNTER → 2021-07-16 | Outpatient (CLI) | payer MEDICAID ==
[~2021-07-16] MED LIST changes: -CYANOCOBALAMIN (B-12) 1000 MCG/1 ML VIAL IM ONE
[2021-07-16 10:20] VITALS: BP 105/72
[2021-07-16] MEDS: CYANOCOBALAMIN (B-12) 1000 MCG/1 ML VIAL IM ONE ×2 (10:39→16:24)
[2021-07-16 11:15] VITALS: BP 96/62
[2021-07-16 11:44] LABS: Potassium 4.3 mmol/L (3.5-5.1)
[2021-07-16 11:56] LABS: Albumin 3.9 g/dL (3.4-5.0); BUN/Creatinine Ratio 11.7; Bilirubin, Total 1.3 mg/dL (0.2-1.0); Calcium 9.2 mg/dL (8.5-10.1); Magnesium 2.6 mg/dL (1.6-2.6); Total Protein 7.7 g/dL (6.4-8.2)
== END | disposition home or self-care (01) ==
LOC: CHF HDHVI 10:19
PROVIDERS: ATTEND Internal Medicine Cardiovascular Disease
DX: I27.21 Secondary pulmonary arterial hypertension (principal); I11.0 Hypertensive heart disease with heart failure; I50.32 Chronic diastolic (congestive) heart failure; E11.42 Type 2 diabetes mellitus with diabetic polyneuropathy; J44.9 Chronic obstructive pulmonary disease, unspecified; E03.9 Hypothyroidism, unspecified; Z79.899 Other long term (current) drug therapy
CPT/HCPCS: 36415; 80053; 82306; 82607; 83735; 96372; G0463; J3420

== ENCOUNTER → 2021-08-13 | Outpatient (CLI) | payer MEDICAID ==
[~2021-08-13] MED LIST changes: +AMIT25TA12 PO; -AMIT25TA9 PO; +CYANOCOBALAMIN (B-12) 1000 MCG/1 ML VIAL IM ONE
[2021-08-13 10:16] VITALS: BP 96/66
[2021-08-13 11:25] VITALS: BP 93/67
[2021-08-13 11:29] LABS: Eosinophils # (auto) 0.2 10 ^3/uL (0-0.8); Lymphocytes # (auto) 1.4 10 ^3/uL (0.4-5.4); Monocytes # (auto) 0.5 10 ^3/uL (0-1.3); Monocytes % (auto) 6.4 % (0.0-12.0); Red Cell Distribution Width 14.6 % (11.8-14.3)
[2021-08-13 11:35] LABS: Basophils # (auto) 0.1 10 ^3/uL (0-0.2); Basophils % (auto) 0.7 % (0.0-2.0); Eosinophils % (auto) 2.7 % (0.0-7.0); Hematocrit 51.5 % (41.0-53.0); Lymphocytes % (auto) 17.9 % (10.0-50.0); Mean Corpuscular Hemoglobin 31.6 pg (28.0-32.0); Mean Corpuscular Volume 90.2 fL (80.0-100.0); Neutrophils # (auto) 5.6 10 ^3/uL (1.6-8.6); Neutrophils % (auto) 72.3 % (37.0-80.0); Nucleated Red Blood Cells % 0.1 %; Red Blood Cells 5.71 10^6/uL (4.5-5.90); White Blood Cell 7.7 10^3/uL (4.4-10.8)
[2021-08-13 11:38] LABS: Magnesium 2.3 mg/dL (1.6-2.6)
[2021-08-13 11:46] LABS: Albumin 4.2 g/dL (3.4-5.0); BUN/Creatinine Ratio 17.1; Bilirubin, Total 0.9 mg/dL (0.2-1.0); Calcium 9.3 mg/dL (8.5-10.1); Total Protein 8.2 g/dL (6.4-8.2)
[2021-08-13 16:56] LABS: Free T4 (Free Thyroxine) 1.55 ng/dL (0.89-1.76)
[2021-08-13 16:57] LABS: Folate (Folic Acid) 19.42 ng/mL (5.38-24)
[2021-08-15 13:45] LABS: Hepatitis B Surface Antigen Negative (Negative)
[2021-08-15 14:09] LABS: Hepatitis A Total Antibody Negative; Hepatitis B Surface Antibody Negative
[2021-08-15 14:27] LABS: Hepatitis C Antibody Negative (Negative)
[2021-08-15 14:30] LABS: Hepatitis B Core Total AB Negative
== END | disposition home or self-care (01) ==
LOC: CHF HDHVI 10:13
PROVIDERS: ATTEND Internal Medicine Cardiovascular Disease
DX: I27.21 Secondary pulmonary arterial hypertension (principal); R53.83 Other fatigue; E66.01 Morbid (severe) obesity due to excess calories; I11.0 Hypertensive heart disease with heart failure; I50.32 Chronic diastolic (congestive) heart failure; E11.42 Type 2 diabetes mellitus with diabetic polyneuropathy; J44.9 Chronic obstructive pulmonary disease, unspecified; E03.9 Hypothyroidism, unspecified; D64.9 Anemia, unspecified; Z12.5 Encounter for screening for malignant neoplasm of prostate; Z79.899 Other long term (current) drug therapy; Z00.00 Encounter for general adult medical examination without abnormal findings
CPT/HCPCS: 36415; 80053; 80061; 82306; 82607; 82746; 83036; 83540; 83550; 83735; 83970; 84153; 84439; 84443; 85025; 86704; 86706; 86708; 86803; 87340; 96372; G0463; J3420

== ENCOUNTER → 2021-09-17 | Outpatient (CLI) | payer MEDICAID ==
[2021-09-17 09:57] VITALS: BP 115/74
[2021-09-17 10:30] VITALS: BP 115/70
[2021-09-17 11:32] LABS: Basophils # (auto) 0.1 10 ^3/uL (0-0.2); Eosinophils # (auto) 0.3 10 ^3/uL (0-0.8); Eosinophils % (auto) 3.7 % (0.0-7.0); Hematocrit 51.2 % (41.0-53.0); Hemoglobin 17.5 g/dL (13.5-17.5); Lymphocytes # (auto) 1.6 10 ^3/uL (0.4-5.4); Lymphocytes % (auto) 17.9 % (10.0-50.0); Mean Corpuscular Hemoglobin 30.6 pg (28.0-32.0); Mean Corpuscular Hgb Conc. 34.2 g/dL (32.0-36.0); Mean Corpuscular Volume 89.5 fL (80.0-100.0); Monocytes # (auto) 0.7 10 ^3/uL (0-1.3); Monocytes % (auto) 7.6 % (0.0-12.0); Neutrophils # (auto) 6.4 10 ^3/uL (1.6-8.6); Neutrophils % (auto) 69.8 % (37.0-80.0); Red Blood Cells 5.72 10^6/uL (4.5-5.90); Red Cell Distribution Width 14.6 % (11.8-14.3); White Blood Cell 9.2 10^3/uL (4.4-10.8)
[2021-09-17 11:52] LABS: Albumin 4.1 g/dL (3.4-5.0); Calcium 9.4 mg/dL (8.5-10.1)
[2021-09-17 11:57] LABS: BUN/Creatinine Ratio 22.8; Total Protein 8.3 g/dL (6.4-8.2)
== END | disposition home or self-care (01) ==
LOC: Rad HDHVI 10:00
PROVIDERS: ATTEND Internal Medicine Cardiovascular Disease
DX: I27.21 Secondary pulmonary arterial hypertension (principal); I11.0 Hypertensive heart disease with heart failure; I50.32 Chronic diastolic (congestive) heart failure; J44.9 Chronic obstructive pulmonary disease, unspecified; E11.42 Type 2 diabetes mellitus with diabetic polyneuropathy; E03.9 Hypothyroidism, unspecified; E66.01 Morbid (severe) obesity due to excess calories; Z79.899 Other long term (current) drug therapy
CPT/HCPCS: 36415; 80053; 83036; 83735; 85025; 93306; 96372; G0463; J3420

== ENCOUNTER → 2021-10-15 | Outpatient (CLI) | payer MEDICAID ==
[2021-10-15 10:34] VITALS: BP 101/67
[2021-10-15 11:01] VITALS: BP 107/70
[2021-10-15 11:26] LABS: Eosinophils # (auto) 0.2 10 ^3/uL (0-0.8); Mean Corpuscular Hemoglobin 31.1 pg (28.0-32.0); Monocytes # (auto) 0.6 10 ^3/uL (0-1.3); Nucleated Red Blood Cells % 0.1 %
[2021-10-15 11:28] LABS: Basophils # (auto) 0.1 10 ^3/uL (0-0.2); Basophils % (auto) 0.7 % (0.0-2.0); Eosinophils % (auto) 2.3 % (0.0-7.0); Hematocrit 49.9 % (41.0-53.0); Hemoglobin 17.4 g/dL (13.5-17.5); Lymphocytes # (auto) 1.5 10 ^3/uL (0.4-5.4); Lymphocytes % (auto) 19.9 % (10.0-50.0); Mean Corpuscular Hgb Conc. 34.9 g/dL (32.0-36.0); Mean Corpuscular Volume 89.1 fL (80.0-100.0); Monocytes % (auto) 7.1 % (0.0-12.0); Neutrophils # (auto) 5.4 10 ^3/uL (1.6-8.6); Red Blood Cells 5.61 10^6/uL (4.5-5.90); Red Cell Distribution Width 14.6 % (11.8-14.3); White Blood Cell 7.7 10^3/uL (4.4-10.8)
[2021-10-15 11:44] LABS: Albumin 4.2 g/dL (3.4-5.0); BUN/Creatinine Ratio 15.4; Calcium 9.5 mg/dL (8.5-10.1); Magnesium 2.6 mg/dL (1.6-2.6)
[2021-10-15 11:46] LABS: Total Protein 8.1 g/dL (6.4-8.2)
== END | disposition home or self-care (01) ==
LOC: CHF HDHVI 10:02
PROVIDERS: ATTEND Internal Medicine
DX: I27.21 Secondary pulmonary arterial hypertension (principal); I11.0 Hypertensive heart disease with heart failure; I50.32 Chronic diastolic (congestive) heart failure; E03.9 Hypothyroidism, unspecified; J44.9 Chronic obstructive pulmonary disease, unspecified; E11.40 Type 2 diabetes mellitus with diabetic neuropathy, unspecified; Z79.899 Other long term (current) drug therapy
CPT/HCPCS: 36415; 80053; 83735; 85025; 96372; G0463; J3420

== ENCOUNTER → 2021-11-12 | Outpatient (CLI) | payer MEDICAID ==
[2021-11-12 10:04] VITALS: BP 109/68
[2021-11-12 11:17] VITALS: BP 111/68
[2021-11-12 11:46] LABS: Potassium 4.1 mmol/L (3.5-5.1)
[2021-11-12 11:50] LABS: Basophils # (auto) 0.1 10 ^3/uL (0-0.2); Basophils % (auto) 0.7 % (0.0-2.0); Eosinophils # (auto) 0.2 10 ^3/uL (0-0.8); Eosinophils % (auto) 2.3 % (0.0-7.0); Hematocrit 48.8 % (41.0-53.0); Hemoglobin 16.7 g/dL (13.5-17.5); Lymphocytes # (auto) 1.3 10 ^3/uL (0.4-5.4); Lymphocytes % (auto) 16.8 % (10.0-50.0); Mean Corpuscular Hemoglobin 30.9 pg (28.0-32.0); Mean Corpuscular Hgb Conc. 34.3 g/dL (32.0-36.0); Mean Corpuscular Volume 90.2 fL (80.0-100.0); Monocytes # (auto) 0.5 10 ^3/uL (0-1.3); Monocytes % (auto) 6.3 % (0.0-12.0); Neutrophils # (auto) 5.8 10 ^3/uL (1.6-8.6); Neutrophils % (auto) 73.9 % (37.0-80.0); Nucleated Red Blood Cells % 0.4 %; Red Blood Cells 5.41 10^6/uL (4.5-5.90); Red Cell Distribution Width 14.6 % (11.8-14.3); White Blood Cell 7.9 10^3/uL (4.4-10.8)
[2021-11-12 11:54] LABS: Albumin 4.2 g/dL (3.4-5.0); BUN/Creatinine Ratio 11.7; Calcium 9.4 mg/dL (8.5-10.1); Magnesium 2.4 mg/dL (1.6-2.6)
[2021-11-12 11:57] LABS: % Iron Saturation 23.7 % (20-55)
[2021-11-12 12:05] LABS: Free T4 (Free Thyroxine) 1.53 ng/dL (0.89-1.76)
[2021-11-12 12:06] LABS: Folate (Folic Acid) 21.83 ng/mL (5.38-24)
== END | disposition home or self-care (01) ==
LOC: CHF HDHVI 10:06
PROVIDERS: ATTEND Internal Medicine Cardiovascular Disease
DX: I27.21 Secondary pulmonary arterial hypertension (principal); I11.0 Hypertensive heart disease with heart failure; I50.32 Chronic diastolic (congestive) heart failure; J44.9 Chronic obstructive pulmonary disease, unspecified; E11.40 Type 2 diabetes mellitus with diabetic neuropathy, unspecified; E03.9 Hypothyroidism, unspecified; Z79.899 Other long term (current) drug therapy
CPT/HCPCS: 36415; 71046; 80053; 80061; 82607; 82746; 83036; 83540; 83550; 83735; 84439; 84443; 85025; 94618; 96372; G0463; J3420

== ENCOUNTER → 2021-12-24 | Outpatient (CLI) | payer MEDICAID ==
[~2021-12-24] MED LIST changes: -CYANOCOBALAMIN (B-12) 1000 MCG/1 ML VIAL IM ONE; -CYANOCOBALAMIN (B-12) 1000 MCG/1 ML VIAL ONE
[2021-12-24 13:43] LABS: BUN/Creatinine Ratio 20.3; Calcium 9.6 mg/dL (8.5-10.1); Potassium 3.9 mmol/L (3.5-5.1)
[2021-12-24 13:46] LABS: Bilirubin, Total 0.9 mg/dL (0.2-1.0); Total Protein 7.6 g/dL (6.4-8.2)
== END | disposition home or self-care (01) ==
LOC: CHF HDHVI 09:39
PROVIDERS: ATTEND Internal Medicine Cardiovascular Disease
DX: I27.0 Primary pulmonary hypertension (principal)
CPT/HCPCS: 36415; 80053

== ENCOUNTER → 2021-12-31 | Outpatient (CLI) | payer MEDICAID ==
[2021-12-31 12:35] VITALS: BP 115/74
[2021-12-31 13:05] VITALS: BP 97/62
== END | disposition home or self-care (01) ==
LOC: Rad HDHVI 12:42
PROVIDERS: ATTEND Internal Medicine
DX: I11.0 Hypertensive heart disease with heart failure (principal); I07.1 Rheumatic tricuspid insufficiency; I50.32 Chronic diastolic (congestive) heart failure; I27.20 Pulmonary hypertension, unspecified; E11.9 Type 2 diabetes mellitus without complications
CPT/HCPCS: 93306; G0463

== ENCOUNTER → 2022-01-07 | Outpatient (CLI) | payer MEDICAID ==
[~2022-01-07] MED LIST changes: +CYANOCOBALAMIN (B-12) 1000 MCG/1 ML VIAL IM ONE; +CYANOCOBALAMIN (B-12) 1000 MCG/1 ML VIAL ONE
[2022-01-07 10:32] VITALS: BP 102/59
[2022-01-07 11:00] VITALS: BP 98/65
[2022-01-07 12:14] LABS: Basophils # (auto) 0 10 ^3/uL (0-0.2); Basophils % (auto) 0.6 % (0.0-2.0); Eosinophils # (auto) 0.2 10 ^3/uL (0-0.8); Eosinophils % (auto) 2.7 % (0.0-7.0); Hematocrit 51.6 % (41.0-53.0); Hemoglobin 17.5 g/dL (13.5-17.5); Lymphocytes # (auto) 1.3 10 ^3/uL (0.4-5.4); Lymphocytes % (auto) 18.5 % (10.0-50.0); Mean Corpuscular Hemoglobin 30.7 pg (28.0-32.0); Mean Corpuscular Hgb Conc. 33.9 g/dL (32.0-36.0); Mean Corpuscular Volume 90.5 fL (80.0-100.0); Monocytes # (auto) 0.5 10 ^3/uL (0-1.3); Neutrophils % (auto) 71.2 % (37.0-80.0); Nucleated Red Blood Cells % 0.1 %
[2022-01-07 12:36] LABS: Albumin 4.3 g/dL (3.4-5.0); Calcium 9.5 mg/dL (8.5-10.1); Magnesium 2.9 mg/dL (1.6-2.6); Potassium 3.7 mmol/L (3.5-5.1)
[2022-01-07 12:39] LABS: Bilirubin, Total 1.2 mg/dL (0.2-1.0)
[2022-01-07 12:40] LABS: BUN/Creatinine Ratio 12.4
== END | disposition home or self-care (01) ==
LOC: CHF HDHVI 10:35
PROVIDERS: ATTEND Internal Medicine
DX: I27.21 Secondary pulmonary arterial hypertension (principal); I11.0 Hypertensive heart disease with heart failure; I50.32 Chronic diastolic (congestive) heart failure; J44.9 Chronic obstructive pulmonary disease, unspecified; E11.40 Type 2 diabetes mellitus with diabetic neuropathy, unspecified; I07.1 Rheumatic tricuspid insufficiency; Z79.899 Other long term (current) drug therapy
CPT/HCPCS: 36415; 80053; 83036; 83735; 83880; 84403; 85025; 96372; G0463; J3420

== ENCOUNTER → 2022-01-08 | Outpatient (CLI) | payer MEDICAID ==
[~2022-01-08] MED LIST changes: -CYANOCOBALAMIN (B-12) 1000 MCG/1 ML VIAL IM ONE; -CYANOCOBALAMIN (B-12) 1000 MCG/1 ML VIAL ONE
== END | disposition home or self-care (01) ==
LOC: Rad HDHVI 13:25
PROVIDERS: ATTEND Internal Medicine
DX: M79.605 Pain in left leg (principal); E78.5 Hyperlipidemia, unspecified
CPT/HCPCS: 93925

== ENCOUNTER → 2022-01-21 | Outpatient (CLI) | payer MEDICAID ==
[2022-01-21 10:24] VITALS: BP 105/65
[2022-01-21 11:27] VITALS: BP 100/69
[2022-01-21 11:50] LABS: Albumin 3.9 g/dL (3.4-5.0); Calcium 8.7 mg/dL (8.5-10.1); Potassium 3.7 mmol/L (3.5-5.1)
[2022-01-21 11:53] LABS: BUN/Creatinine Ratio 19.2; Bilirubin, Total 0.8 mg/dL (0.2-1.0); Total Protein 7.7 g/dL (6.4-8.2)
== END | disposition home or self-care (01) ==
LOC: CHF HDHVI 10:17
PROVIDERS: ATTEND Internal Medicine
DX: I27.0 Primary pulmonary hypertension (principal); I73.9 Peripheral vascular disease, unspecified; R06.02 Shortness of breath
CPT/HCPCS: 36415; 80053; G0463

== ENCOUNTER → 2022-02-18 | Outpatient (CLI) | payer MEDICAID ==
[2022-02-18 10:15] VITALS: BP 104/65
[2022-02-18 10:45] VITALS: BP 101/57
[2022-02-18 11:55] LABS: Albumin 3.5 g/dL (3.4-5.0); Calcium 8.7 mg/dL (8.5-10.1)
[2022-02-18 11:59] LABS: BUN/Creatinine Ratio 15.8; Bilirubin, Total 0.6 mg/dL (0.2-1.0); Total Protein 6.9 g/dL (6.4-8.2)
== END | disposition home or self-care (01) ==
LOC: CHF HDHVI 10:19
PROVIDERS: ATTEND Internal Medicine
DX: I27.21 Secondary pulmonary arterial hypertension (principal); E11.9 Type 2 diabetes mellitus without complications
CPT/HCPCS: 36415; 80053; G0463

== ENCOUNTER → 2022-04-01 | Outpatient (CLI) | payer MEDICAID ==
[~2022-04-01] MED LIST changes: +CYANOCOBALAMIN (B-12) 1000 MCG/1 ML VIAL IM ONE; +CYANOCOBALAMIN (B-12) 1000 MCG/1 ML VIAL ONE
[2022-04-01 10:00] VITALS: BP 118/76
[2022-04-01 10:39] VITALS: BP 105/51
[2022-04-01 12:05] LABS: Basophils # (auto) 0.1 10 ^3/uL (0-0.2); Basophils % (auto) 0.7 % (0.0-2.0); Eosinophils # (auto) 0.3 10 ^3/uL (0-0.8); Hematocrit 42.9 % (41.0-53.0); Hemoglobin 15.3 g/dL (13.5-17.5); Lymphocytes # (auto) 1.4 10 ^3/uL (0.4-5.4); Lymphocytes % (auto) 15.6 % (10.0-50.0); Mean Corpuscular Hemoglobin 31.2 pg (28.0-32.0); Mean Corpuscular Hgb Conc. 35.6 g/dL (32.0-36.0); Mean Corpuscular Volume 87.7 fL (80.0-100.0); Monocytes # (auto) 0.4 10 ^3/uL (0-1.3); Monocytes % (auto) 4.5 % (0.0-12.0); Neutrophils # (auto) 6.7 10 ^3/uL (1.6-8.6); Neutrophils % (auto) 76.2 % (37.0-80.0); Nucleated Red Blood Cells % 0.1 %; Red Blood Cells 4.89 10^6/uL (4.5-5.90); White Blood Cell 8.8 10^3/uL (4.4-10.8)
[2022-04-01 12:08] LABS: Potassium 3.7 mmol/L (3.5-5.1)
[2022-04-01 12:19] LABS: Albumin 3.7 g/dL (3.4-5.0); BUN/Creatinine Ratio 22.4; Bilirubin, Total 0.6 mg/dL (0.2-1.0); Calcium 8.7 mg/dL (8.5-10.1); Magnesium 2.3 mg/dL (1.6-2.6); Total Protein 7.2 g/dL (6.4-8.2)
== END | disposition home or self-care (01) ==
LOC: CHF HDHVI 10:02
PROVIDERS: ATTEND Internal Medicine
DX: I27.21 Secondary pulmonary arterial hypertension (principal); I11.0 Hypertensive heart disease with heart failure; I50.32 Chronic diastolic (congestive) heart failure; E11.40 Type 2 diabetes mellitus with diabetic neuropathy, unspecified; J44.9 Chronic obstructive pulmonary disease, unspecified; E03.9 Hypothyroidism, unspecified; Z79.899 Other long term (current) drug therapy
CPT/HCPCS: 36415; 80053; 83735; 83880; 85025; 96372; G0463; J3420

== ENCOUNTER → 2022-04-15 | Outpatient (CLI) | payer MEDICAID ==
[~2022-04-15] MED LIST changes: -CYANOCOBALAMIN (B-12) 1000 MCG/1 ML VIAL IM ONE; -CYANOCOBALAMIN (B-12) 1000 MCG/1 ML VIAL ONE
[2022-04-15 10:12] VITALS: BP 107/59
[2022-04-15 10:45] VITALS: BP 103/64
[2022-04-15 15:48] LABS: Albumin 3.9 g/dL (3.4-5.0); Calcium 8.7 mg/dL (8.5-10.1); Potassium 4.2 mmol/L (3.5-5.1)
[2022-04-15 15:52] LABS: BUN/Creatinine Ratio 14.4; Bilirubin, Total 0.9 mg/dL (0.2-1.0); Total Protein 7.6 g/dL (6.4-8.2)
== END | disposition home or self-care (01) ==
LOC: CHF HDHVI 10:20
PROVIDERS: ATTEND Internal Medicine
DX: I27.21 Secondary pulmonary arterial hypertension (principal)
CPT/HCPCS: 36415; 80053; 83036; G0463

== ENCOUNTER → 2022-04-29 | Outpatient (CLI) | payer MEDICAID ==
[~2022-04-29] MED LIST changes: +CYANOCOBALAMIN (B-12) 1000 MCG/1 ML VIAL IM ONE; +CYANOCOBALAMIN (B-12) 1000 MCG/1 ML VIAL ONE
[2022-04-29 09:20] VITALS: BP 105/54
[2022-04-29 09:51] VITALS: BP 105/59
[2022-04-29 12:26] LABS: Basophils # (auto) 0 10 ^3/uL (0-0.2); Basophils % (auto) 0.5 % (0.0-2.0); Eosinophils # (auto) 0.2 10 ^3/uL (0-0.8); Eosinophils % (auto) 2.7 % (0.0-7.0); Hemoglobin 15.6 g/dL (13.5-17.5); Lymphocytes # (auto) 1.1 10 ^3/uL (0.4-5.4); Lymphocytes % (auto) 14.6 % (10.0-50.0); Mean Corpuscular Hemoglobin 29.7 pg (28.0-32.0); Mean Corpuscular Hgb Conc. 33.2 g/dL (32.0-36.0); Mean Corpuscular Volume 89.3 fL (80.0-100.0); Monocytes # (auto) 0.4 10 ^3/uL (0-1.3); Monocytes % (auto) 5.5 % (0.0-12.0); Neutrophils # (auto) 5.9 10 ^3/uL (1.6-8.6); Neutrophils % (auto) 76.7 % (37.0-80.0); Nucleated Red Blood Cells % 0.1 %; Red Blood Cells 5.27 10^6/uL (4.5-5.90); Red Cell Distribution Width 14.3 % (11.8-14.3); White Blood Cell 7.7 10^3/uL (4.4-10.8)
[2022-04-29 13:26] LABS: Potassium 3.9 mmol/L (3.5-5.1)
[2022-04-29 13:28] LABS: Albumin 3.9 g/dL (3.4-5.0); BUN/Creatinine Ratio 17.5; Bilirubin, Total 0.9 mg/dL (0.2-1.0); Total Protein 7.6 g/dL (6.4-8.2)
[2022-04-29 13:29] LABS: Magnesium 2.5 mg/dL (1.6-2.6)
== END | disposition home or self-care (01) ==
LOC: CHF HDHVI 09:15
PROVIDERS: ATTEND Internal Medicine
DX: I27.21 Secondary pulmonary arterial hypertension (principal); I11.0 Hypertensive heart disease with heart failure; I50.32 Chronic diastolic (congestive) heart failure; J44.9 Chronic obstructive pulmonary disease, unspecified; E11.40 Type 2 diabetes mellitus with diabetic neuropathy, unspecified; E03.9 Hypothyroidism, unspecified; Z79.899 Other long term (current) drug therapy
CPT/HCPCS: 36415; 80053; 83735; 85025; 96372; G0463; J3420

== ENCOUNTER → 2022-05-29 | Outpatient (CLI) | payer MEDICAID ==
[~2022-05-29] MED LIST changes: -CYANOCOBALAMIN (B-12) 1000 MCG/1 ML VIAL IM ONE; -CYANOCOBALAMIN (B-12) 1000 MCG/1 ML VIAL ONE
[2022-05-29 09:59] VITALS: BP 109/65
[2022-05-29 10:31] VITALS: BP 104/62
[2022-05-29 12:46] LABS: Basophils # (auto) 0.1 10 ^3/uL (0-0.2); Basophils % (auto) 0.7 % (0.0-2.0); Eosinophils # (auto) 0.3 10 ^3/uL (0-0.8); Eosinophils % (auto) 3.4 % (0.0-7.0); Hematocrit 48.4 % (41.0-53.0); Hemoglobin 15.8 g/dL (13.5-17.5); Lymphocytes # (auto) 1.2 10 ^3/uL (0.4-5.4); Lymphocytes % (auto) 15.3 % (10.0-50.0); Mean Corpuscular Hemoglobin 29.3 pg (28.0-32.0); Mean Corpuscular Hgb Conc. 32.7 g/dL (32.0-36.0); Mean Corpuscular Volume 89.6 fL (80.0-100.0); Monocytes # (auto) 0.5 10 ^3/uL (0-1.3); Neutrophils # (auto) 5.7 10 ^3/uL (1.6-8.6); Neutrophils % (auto) 74.6 % (37.0-80.0); Nucleated Red Blood Cells % 0.1 %; Red Cell Distribution Width 14.4 % (11.8-14.3); White Blood Cell 7.6 10^3/uL (4.4-10.8)
[2022-05-29 12:54] LABS: Albumin 3.8 g/dL (3.4-5.0); Magnesium 2.5 mg/dL (1.6-2.6); Potassium 3.9 mmol/L (3.5-5.1)
[2022-05-29 12:58] LABS: BUN/Creatinine Ratio 17.2; Bilirubin, Total 0.7 mg/dL (0.2-1.0); Total Protein 7.3 g/dL (6.4-8.2)
== END | disposition home or self-care (01) ==
LOC: CHF HDHVI 09:59
PROVIDERS: ATTEND Internal Medicine
DX: I27.21 Secondary pulmonary arterial hypertension (principal); R53.83 Other fatigue; I77.9 Disorder of arteries and arterioles, unspecified; I73.9 Peripheral vascular disease, unspecified
CPT/HCPCS: 36415; 80053; 83735; 85025; G0463

== ENCOUNTER → 2022-07-01 | Outpatient (CLI) | payer MEDICAID ==
[~2022-07-01] MED LIST changes: +CYANOCOBALAMIN (B-12) 1000 MCG/1 ML VIAL IM ONE; +CYANOCOBALAMIN (B-12) 1000 MCG/1 ML VIAL ONE
[2022-07-01 09:39] VITALS: BP 111/66
[2022-07-01 10:10] VITALS: BP 103/61
[2022-07-01 12:40] LABS: Basophils # (auto) 0.1 10 ^3/uL (0-0.2); Basophils % (auto) 0.8 % (0.0-2.0); Eosinophils # (auto) 0.1 10 ^3/uL (0-0.8); Eosinophils % (auto) 1.8 % (0.0-7.0); Hematocrit 47.2 % (41.0-53.0); Hemoglobin 15.5 g/dL (13.5-17.5); Lymphocytes % (auto) 13.5 % (10.0-50.0); Mean Corpuscular Hemoglobin 29.1 pg (28.0-32.0); Mean Corpuscular Hgb Conc. 32.8 g/dL (32.0-36.0); Mean Corpuscular Volume 88.7 fL (80.0-100.0); Monocytes # (auto) 0.4 10 ^3/uL (0-1.3); Monocytes % (auto) 5.9 % (0.0-12.0); Neutrophils # (auto) 5.9 10 ^3/uL (1.6-8.6); Nucleated Red Blood Cells % 0.1 %; Red Blood Cells 5.32 10^6/uL (4.5-5.90); Red Cell Distribution Width 14.4 % (11.8-14.3); White Blood Cell 7.5 10^3/uL (4.4-10.8)
[2022-07-01 12:48] LABS: Albumin 4.1 g/dL (3.4-5.0); Potassium 3.8 mmol/L (3.5-5.1)
[2022-07-01 12:53] LABS: BUN/Creatinine Ratio 14.5; Bilirubin, Total 0.9 mg/dL (0.2-1.0); Total Protein 7.3 g/dL (6.4-8.2)
== END | disposition home or self-care (01) ==
LOC: CHF HDHVI 09:30
PROVIDERS: ATTEND Internal Medicine
DX: I27.21 Secondary pulmonary arterial hypertension (principal); I10 Essential (primary) hypertension; E11.42 Type 2 diabetes mellitus with diabetic polyneuropathy; I73.9 Peripheral vascular disease, unspecified
CPT/HCPCS: 36415; 80053; 85025; 96372; G0463; J3420

== ENCOUNTER → 2022-08-26 | Outpatient (CLI) | payer MEDICAID ==
[~2022-08-26] VITALS: Ht 30.5 cm; Wt 100.4 kg
[2022-08-26 10:58] VITALS: BP 105/67
[2022-08-26 11:54] VITALS: BP 118/65
[2022-08-26 16:32] LABS: Basophils # (auto) 0.1 10 ^3/uL (0-0.2); Basophils % (auto) 0.9 % (0.0-2.0); Eosinophils # (auto) 0.2 10 ^3/uL (0-0.8); Hematocrit 49.9 % (41.0-53.0); Hemoglobin 16.7 g/dL (13.5-17.5); Lymphocytes # (auto) 1.5 10 ^3/uL (0.4-5.4); Lymphocytes % (auto) 19.9 % (10.0-50.0); Mean Corpuscular Hemoglobin 29.8 pg (28.0-32.0); Mean Corpuscular Hgb Conc. 33.4 g/dL (32.0-36.0); Mean Corpuscular Volume 89.2 fL (80.0-100.0); Monocytes # (auto) 0.6 10 ^3/uL (0-1.3); Monocytes % (auto) 8.5 % (0.0-12.0); Neutrophils # (auto) 5.1 10 ^3/uL (1.6-8.6); Neutrophils % (auto) 67.7 % (37.0-80.0); Nucleated Red Blood Cells % 0.2 %; Red Blood Cells 5.59 10^6/uL (4.5-5.90); White Blood Cell 7.6 10^3/uL (4.4-10.8)
[2022-08-26 16:44] LABS: Potassium 4.3 mmol/L (3.5-5.1)
[2022-08-26 16:50] LABS: Calcium 8.8 mg/dL (8.5-10.1); Magnesium 2.6 mg/dL (1.6-2.6); Total Protein 7.9 g/dL (6.4-8.2)
== END | disposition home or self-care (01) ==
LOC: CHF HDHVI 11:13
PROVIDERS: ATTEND Internal Medicine
DX: I27.21 Secondary pulmonary arterial hypertension (principal)
CPT/HCPCS: 36415; 80053; 83735; 85025; 94618; 96372; G0463

== ENCOUNTER → 2022-08-29 | Outpatient (CLI) | payer MEDICAID ==
[~2022-08-29] MED LIST changes: -CYANOCOBALAMIN (B-12) 1000 MCG/1 ML VIAL IM ONE; -CYANOCOBALAMIN (B-12) 1000 MCG/1 ML VIAL ONE
== END | disposition home or self-care (01) ==
LOC: Rad HDHVI 09:31
PROVIDERS: ATTEND Internal Medicine
DX: I07.1 Rheumatic tricuspid insufficiency (principal); I27.20 Pulmonary hypertension, unspecified; I11.9 Hypertensive heart disease without heart failure; E78.5 Hyperlipidemia, unspecified
CPT/HCPCS: 93306

== ENCOUNTER → 2022-10-16 | Outpatient (CLI) | payer MEDICAID ==
[~2022-10-16] MED LIST changes: +CYANOCOBALAMIN (B-12) 1000 MCG/1 ML VIAL IM ONE; +CYANOCOBALAMIN (B-12) 1000 MCG/1 ML VIAL ONE
[2022-10-16 10:33] VITALS: BP 113/66
[2022-10-16 11:12] VITALS: BP 105/64
[2022-10-16 11:53] LABS: Basophils # (auto) 0.1 10 ^3/uL (0-0.2); Basophils % (auto) 0.7 % (0.0-2.0); Eosinophils # (auto) 0.3 10 ^3/uL (0-0.8); Eosinophils % (auto) 3.3 % (0.0-7.0); Hematocrit 49.5 % (41.0-53.0); Lymphocytes # (auto) 1.5 10 ^3/uL (0.4-5.4); Lymphocytes % (auto) 18.6 % (10.0-50.0); Mean Corpuscular Hemoglobin 30.3 pg (28.0-32.0); Mean Corpuscular Hgb Conc. 34.2 g/dL (32.0-36.0); Mean Corpuscular Volume 88.6 fL (80.0-100.0); Monocytes # (auto) 0.6 10 ^3/uL (0-1.3); Monocytes % (auto) 7.4 % (0.0-12.0); Neutrophils # (auto) 5.5 10 ^3/uL (1.6-8.6); Nucleated Red Blood Cells % 0.3 %; Red Blood Cells 5.59 10^6/uL (4.5-5.90); Red Cell Distribution Width 14.8 % (11.8-14.3); White Blood Cell 7.9 10^3/uL (4.4-10.8)
[2022-10-16 12:02] LABS: Albumin 4.3 g/dL (3.4-5.0); Calcium 9.5 mg/dL (8.5-10.1); Magnesium 2.4 mg/dL (1.6-2.6); Potassium 4.5 mmol/L (3.5-5.1)
[2022-10-16 12:05] LABS: BUN/Creatinine Ratio 17.9; Bilirubin, Total 0.8 mg/dL (0.2-1.0); Total Protein 7.6 g/dL (6.4-8.2)
== END | disposition home or self-care (01) ==
LOC: CHF HDHVI 10:29
PROVIDERS: ATTEND Internal Medicine
DX: I50.23 Acute on chronic systolic (congestive) heart failure (principal)
CPT/HCPCS: 36415; 80053; 83735; 83880; 85025; 96372; G0463

== ENCOUNTER → 2022-11-11 | Outpatient (CLI) | payer MEDICAID ==
[2022-11-11 09:56] VITALS: BP 112/65
[2022-11-11 10:45] VITALS: BP 96/62
[2022-11-11 13:31] LABS: Basophils # (auto) 0 10 ^3/uL (0-0.2); Basophils % (auto) 0.3 % (0.0-2.0); Eosinophils # (auto) 0.2 10 ^3/uL (0-0.8); Eosinophils % (auto) 2.7 % (0.0-7.0); Hematocrit 46.5 % (41.0-53.0); Hemoglobin 15.9 g/dL (13.5-17.5); Lymphocytes # (auto) 1.2 10 ^3/uL (0.4-5.4); Lymphocytes % (auto) 14.4 % (10.0-50.0); Mean Corpuscular Hemoglobin 30.5 pg (28.0-32.0); Mean Corpuscular Hgb Conc. 34.3 g/dL (32.0-36.0); Monocytes # (auto) 0.5 10 ^3/uL (0-1.3); Monocytes % (auto) 5.8 % (0.0-12.0); Neutrophils # (auto) 6.6 10 ^3/uL (1.6-8.6); Neutrophils % (auto) 76.8 % (37.0-80.0); Nucleated Red Blood Cells % 0.3 %; Red Blood Cells 5.23 10^6/uL (4.5-5.90); Red Cell Distribution Width 14.5 % (11.8-14.3); White Blood Cell 8.6 10^3/uL (4.4-10.8)
[2022-11-11 13:49] LABS: Potassium 4.1 mmol/L (3.5-5.1)
[2022-11-11 14:04] LABS: Albumin 3.9 g/dL (3.4-5.0); BUN/Creatinine Ratio 13.3; Calcium 9.3 mg/dL (8.5-10.1); Magnesium 2.1 mg/dL (1.6-2.6)
[2022-11-11 14:07] LABS: Bilirubin, Total 0.7 mg/dL (0.2-1.0)
== END | disposition home or self-care (01) ==
LOC: CHF HDHVI 09:44
PROVIDERS: ATTEND Internal Medicine
DX: E11.9 Type 2 diabetes mellitus without complications (principal)
CPT/HCPCS: 36415; 80053; 83036; 83735; 85025; 96372; G0463

== ENCOUNTER → 2022-12-02 | Outpatient (CLI) | payer MEDICAID ==
[2022-12-02 12:35] VITALS: BP 105/60
[2022-12-02 13:06] VITALS: BP 98/64
[2022-12-02 16:47] LABS: Basophils # (auto) 0 10 ^3/uL (0-0.2); Basophils % (auto) 0.4 % (0.0-2.0); Eosinophils # (auto) 0.2 10 ^3/uL (0-0.8); Hematocrit 45.1 % (41.0-53.0); Hemoglobin 15.4 g/dL (13.5-17.5); Lymphocytes # (auto) 1.5 10 ^3/uL (0.4-5.4); Lymphocytes % (auto) 17.8 % (10.0-50.0); Mean Corpuscular Hemoglobin 30.2 pg (28.0-32.0); Mean Corpuscular Hgb Conc. 34.1 g/dL (32.0-36.0); Mean Corpuscular Volume 88.4 fL (80.0-100.0); Monocytes # (auto) 0.5 10 ^3/uL (0-1.3); Monocytes % (auto) 6.2 % (0.0-12.0); Neutrophils # (auto) 6.3 10 ^3/uL (1.6-8.6); Neutrophils % (auto) 73.6 % (37.0-80.0); Nucleated Red Blood Cells % 0.1 %; Red Cell Distribution Width 14.5 % (11.8-14.3); White Blood Cell 8.6 10^3/uL (4.4-10.8)
[2022-12-02 17:48] LABS: Albumin 4.2 g/dL (3.4-5.0); Calcium 8.6 mg/dL (8.5-10.1); Magnesium 2.1 mg/dL (1.6-2.6); Potassium 4.1 mmol/L (3.5-5.1)
[2022-12-02 17:53] LABS: BUN/Creatinine Ratio 17.9; Bilirubin, Total 0.9 mg/dL (0.2-1.0); Total Protein 7.1 g/dL (6.4-8.2)
== END | disposition home or self-care (01) ==
LOC: CHF HDHVI 12:14
PROVIDERS: ATTEND Internal Medicine
DX: I27.21 Secondary pulmonary arterial hypertension (principal)
CPT/HCPCS: 36415; 80053; 83735; 85025; 96372; G0463

== ENCOUNTER → 2023-01-06 | Outpatient (CLI) | payer MEDICAID ==
[2023-01-06 13:20] VITALS: BP 118/74
[2023-01-06 14:30] VITALS: BP 117/68
== END | disposition home or self-care (01) ==
LOC: CHF HDHVI 13:14
PROVIDERS: ATTEND Internal Medicine
DX: I27.21 Secondary pulmonary arterial hypertension (principal); I11.0 Hypertensive heart disease with heart failure; I50.23 Acute on chronic systolic (congestive) heart failure; E11.9 Type 2 diabetes mellitus without complications; E78.5 Hyperlipidemia, unspecified; E11.42 Type 2 diabetes mellitus with diabetic polyneuropathy; E11.51 Type 2 diabetes mellitus with diabetic peripheral angiopathy without gangrene
CPT/HCPCS: 96372; G0463; J3420

== ENCOUNTER → 2023-01-19 | Outpatient (CLI) | payer MEDICAID ==
[~2023-01-19] MED LIST changes: -CYANOCOBALAMIN (B-12) 1000 MCG/1 ML VIAL IM ONE; -CYANOCOBALAMIN (B-12) 1000 MCG/1 ML VIAL ONE
== END | disposition home or self-care (01) ==
LOC: Rad HDHVI 12:16
PROVIDERS: ATTEND Internal Medicine
DX: I07.1 Rheumatic tricuspid insufficiency (principal); I44.0 Atrioventricular block, first degree; I27.20 Pulmonary hypertension, unspecified; I50.32 Chronic diastolic (congestive) heart failure; E78.5 Hyperlipidemia, unspecified
CPT/HCPCS: 93306

== ENCOUNTER → 2023-02-17 | Outpatient (CLI) | payer MEDICAID ==
[~2023-02-17] MED LIST changes: +CYANOCOBALAMIN (B-12) 1000 MCG/1 ML VIAL IM ONE; +CYANOCOBALAMIN (B-12) 1000 MCG/1 ML VIAL ONE; +VANCOMYCIN 1GM/250ML 250 ML IV ONE; +cefTRIAXone 1GM/50ML D5W 50 ML IV ONE
[2023-02-17 12:18] VITALS: BP 106/74
[2023-02-17 13:00] VITALS: BP 111/70
[2023-02-17 18:15] VITALS: BP 111/70
== END | disposition home or self-care (01) ==
LOC: CHF HDHVI 12:23
PROVIDERS: ATTEND Internal Medicine Cardiovascular Disease
DX: I27.21 Secondary pulmonary arterial hypertension (principal); I11.0 Hypertensive heart disease with heart failure; I50.32 Chronic diastolic (congestive) heart failure; D64.9 Anemia, unspecified; R19.00 Intra-abdominal and pelvic swelling, mass and lump, unspecified site; E78.5 Hyperlipidemia, unspecified; E11.42 Type 2 diabetes mellitus with diabetic polyneuropathy; E11.51 Type 2 diabetes mellitus with diabetic peripheral angiopathy without gangrene
CPT/HCPCS: 96365; 96367; 96372; G0463; J0696; J3370; J3420

== ENCOUNTER → 2023-03-17 | Outpatient (CLI) | payer MEDICAID ==
[~2023-03-17] VITALS: Ht 30.5 cm; Wt 98.2 kg
[~2023-03-17] MED LIST changes: -VANCOMYCIN 1GM/250ML 250 ML IV ONE; -cefTRIAXone 1GM/50ML D5W 50 ML IV ONE
[2023-03-17 12:58] VITALS: BP 110/70
[2023-03-17 13:53] VITALS: BP 110/64
== END | disposition home or self-care (01) ==
LOC: CHF HDHVI 12:56
PROVIDERS: ATTEND Internal Medicine Cardiovascular Disease
DX: I27.21 Secondary pulmonary arterial hypertension (principal); D64.9 Anemia, unspecified; I11.0 Hypertensive heart disease with heart failure; I50.32 Chronic diastolic (congestive) heart failure; E78.5 Hyperlipidemia, unspecified; E11.42 Type 2 diabetes mellitus with diabetic polyneuropathy; E11.51 Type 2 diabetes mellitus with diabetic peripheral angiopathy without gangrene
CPT/HCPCS: 96372; G0463; J3420

== ENCOUNTER → 2023-04-21 | Outpatient (CLI) | payer MEDICAID ==
[~2023-04-21] VITALS: Ht 30.5 cm; Wt 99.8 kg
[~2023-04-21] MED LIST changes: -AMIT25TA12 PO; +AMIT25TA20 PO; +BENA40TA70 PO; -BENA40TA8 PO
[2023-04-21 12:47] VITALS: BP 99/69
[2023-04-21 13:48] VITALS: BP 104/72
== END | disposition home or self-care (01) ==
LOC: CHF HDHVI 12:57
PROVIDERS: ATTEND Internal Medicine Cardiovascular Disease
DX: I27.21 Secondary pulmonary arterial hypertension (principal); D64.9 Anemia, unspecified; E11.42 Type 2 diabetes mellitus with diabetic polyneuropathy; E11.51 Type 2 diabetes mellitus with diabetic peripheral angiopathy without gangrene; E78.5 Hyperlipidemia, unspecified; I11.0 Hypertensive heart disease with heart failure; I50.32 Chronic diastolic (congestive) heart failure
CPT/HCPCS: 96372; G0463; J3420

== ENCOUNTER → 2023-05-21 | Outpatient (CLI) | payer MEDICAID ==
[2023-05-21 12:35] VITALS: BP 111/65; PULSE 77; RESP 20; O2SAT 94
[2023-05-21 13:20] VITALS: BP 111/68; PULSE 67; RESP 20; O2SAT 90
== END | disposition home or self-care (01) ==
LOC: CHF HDHVI 12:31
PROVIDERS: ATTEND Internal Medicine Cardiovascular Disease
DX: I27.21 Secondary pulmonary arterial hypertension (principal); D64.9 Anemia, unspecified; R53.83 Other fatigue; I11.0 Hypertensive heart disease with heart failure; I50.32 Chronic diastolic (congestive) heart failure; E11.42 Type 2 diabetes mellitus with diabetic polyneuropathy; E11.51 Type 2 diabetes mellitus with diabetic peripheral angiopathy without gangrene
CPT/HCPCS: 96372; G0463; J3420

== ENCOUNTER → 2023-06-11 | Outpatient (CLI) | payer MEDICAID ==
[2023-06-11 12:19] VITALS: BP 117/64; PULSE 76; RESP 20; O2SAT 95
[2023-06-11 12:40] VITALS: BP 106/65; PULSE 77; RESP 20; O2SAT 95
== END | disposition home or self-care (01) ==
LOC: CHF HDHVI 12:19
PROVIDERS: ATTEND Internal Medicine Cardiovascular Disease
DX: I27.21 Secondary pulmonary arterial hypertension (principal); D64.9 Anemia, unspecified; I11.0 Hypertensive heart disease with heart failure; I50.42 Chronic combined systolic (congestive) and diastolic (congestive) heart failure; E11.42 Type 2 diabetes mellitus with diabetic polyneuropathy; E11.51 Type 2 diabetes mellitus with diabetic peripheral angiopathy without gangrene; E78.5 Hyperlipidemia, unspecified
CPT/HCPCS: 96372; G0463; J3420

== ENCOUNTER → 2023-07-09 | Outpatient (CLI) | payer MEDICAID ==
[~2023-07-09] VITALS: Ht 30.5 cm; Wt 0.5 kg
[2023-07-09 13:15] VITALS: BP 108/63; PULSE 91; RESP 18; O2SAT 88
[2023-07-09 13:43] VITALS: BP 102/65; PULSE 83; RESP 18; O2SAT 93
== END | disposition home or self-care (01) ==
LOC: CHF HDHVI 13:15
PROVIDERS: ATTEND Internal Medicine Cardiovascular Disease
DX: I27.21 Secondary pulmonary arterial hypertension (principal); D51.9 Vitamin B12 deficiency anemia, unspecified; I11.0 Hypertensive heart disease with heart failure; I50.42 Chronic combined systolic (congestive) and diastolic (congestive) heart failure; E78.5 Hyperlipidemia, unspecified; E11.42 Type 2 diabetes mellitus with diabetic polyneuropathy; E11.51 Type 2 diabetes mellitus with diabetic peripheral angiopathy without gangrene
CPT/HCPCS: 96372; G0463; J3420

== ENCOUNTER → 2023-07-23 | Outpatient (CLI) | payer MEDICAID ==
[~2023-07-23] MED LIST changes: -CYANOCOBALAMIN (B-12) 1000 MCG/1 ML VIAL IM ONE; -CYANOCOBALAMIN (B-12) 1000 MCG/1 ML VIAL ONE
== END | disposition home or self-care (01) ==
LOC: Rad HDHVI 12:25
PROVIDERS: ATTEND Internal Medicine Cardiovascular Disease
DX: I07.1 Rheumatic tricuspid insufficiency (principal); I27.20 Pulmonary hypertension, unspecified; I10 Essential (primary) hypertension
CPT/HCPCS: 93306

== ENCOUNTER → 2023-08-04 | Outpatient (CLI) | payer MEDICAID ==
[~2023-08-04] MED LIST changes: +CYANOCOBALAMIN (B-12) 1000 MCG/1 ML VIAL IM ONE; +CYANOCOBALAMIN (B-12) 1000 MCG/1 ML VIAL ONE
[2023-08-04 11:37] VITALS: BP 112/69; PULSE 82; RESP 16; O2SAT 93
[2023-08-04 12:08] VITALS: BP 112/68; PULSE 78; RESP 16; O2SAT 93
== END | disposition home or self-care (01) ==
LOC: CHF HDHVI 11:38
PROVIDERS: ATTEND Internal Medicine Cardiovascular Disease
DX: I27.21 Secondary pulmonary arterial hypertension (principal); D64.9 Anemia, unspecified; I11.0 Hypertensive heart disease with heart failure; I50.42 Chronic combined systolic (congestive) and diastolic (congestive) heart failure; E78.5 Hyperlipidemia, unspecified; E11.42 Type 2 diabetes mellitus with diabetic polyneuropathy; E11.51 Type 2 diabetes mellitus with diabetic peripheral angiopathy without gangrene
CPT/HCPCS: 96372; G0463; J3420

== ENCOUNTER → 2023-09-03 | Outpatient (CLI) | payer MEDICAID ==
[~2023-09-03] MED LIST changes: -CYANOCOBALAMIN (B-12) 1000 MCG/1 ML VIAL IM ONE; -CYANOCOBALAMIN (B-12) 1000 MCG/1 ML VIAL ONE
[2023-09-03 12:40] VITALS: BP 107/69; PULSE 90; RESP 18; O2SAT 92
[2023-09-03 12:57] VITALS: BP 119/73; PULSE 91; RESP 18; O2SAT 93
== END | disposition home or self-care (01) ==
LOC: CHF HDHVI 12:37
PROVIDERS: ATTEND Internal Medicine Cardiovascular Disease
DX: I11.0 Hypertensive heart disease with heart failure (principal); I27.21 Secondary pulmonary arterial hypertension; I50.42 Chronic combined systolic (congestive) and diastolic (congestive) heart failure; E78.5 Hyperlipidemia, unspecified; E11.9 Type 2 diabetes mellitus without complications; R53.83 Other fatigue
CPT/HCPCS: G0463

== ENCOUNTER → 2023-09-29 | Outpatient (CLI) | payer MEDICAID ==
[~2023-09-29] VITALS: Ht 30.5 cm; Wt 99.8 kg
[~2023-09-29] MED LIST changes: +CYANOCOBALAMIN (B-12) 1000 MCG/1 ML VIAL IM ONE; +CYANOCOBALAMIN (B-12) 1000 MCG/1 ML VIAL ONE
[2023-09-29 14:06] VITALS: BP 123/66; PULSE 77; RESP 16; O2SAT 94
[2023-09-29 14:40] VITALS: BP 107/60; PULSE 74; RESP 16; O2SAT 94
== END | disposition home or self-care (01) ==
LOC: CHF HDHVI 14:02
PROVIDERS: ATTEND Internal Medicine Cardiovascular Disease
DX: I27.21 Secondary pulmonary arterial hypertension (principal)
CPT/HCPCS: 96372; G0463; J3420

== ENCOUNTER → 2023-12-01 | Outpatient (CLI) | payer MEDICAID ==
[~2023-12-01] VITALS: Ht 1 cm; Wt 0.5 kg
[~2023-12-01] MED LIST changes: -CYANOCOBALAMIN (B-12) 1000 MCG/1 ML VIAL IM ONE; -CYANOCOBALAMIN (B-12) 1000 MCG/1 ML VIAL ONE
[2023-12-01 12:41] VITALS: BP 125/71; PULSE 87; RESP 20; O2SAT 94
[2023-12-01] MEDS: CYANOCOBALAMIN (B-12) 1000 MCG/1 ML VIAL ONE (12:43)
[2023-12-01] MEDS: CYANOCOBALAMIN (B-12) 1000 MCG/1 ML VIAL IM ONE (12:48)
[2023-12-01 13:17] VITALS: BP 125/73; PULSE 80; RESP 20; O2SAT 94
== END | disposition home or self-care (01) ==
LOC: CHF HDHVI 12:49
PROVIDERS: ATTEND Internal Medicine Cardiovascular Disease
DX: I27.21 Secondary pulmonary arterial hypertension (principal); I10 Essential (primary) hypertension; D64.9 Anemia, unspecified
CPT/HCPCS: 96372; G0463; J3420

== ENCOUNTER → 2024-01-05 | Outpatient (CLI) | payer MEDICAID ==
[2024-01-05 11:38] VITALS: BP 116/66; PULSE 76; RESP 18; O2SAT 97
[2024-01-05] MEDS: CYANOCOBALAMIN (B-12) 1000 MCG/1 ML VIAL ONE (11:38)
[2024-01-05] MEDS: CYANOCOBALAMIN (B-12) 1000 MCG/1 ML VIAL IM ONE (11:41)
[2024-01-05 12:00] VITALS: BP 110/66; PULSE 73; RESP 16; O2SAT 97
== END | disposition home or self-care (01) ==
LOC: CHF HDHVI 11:17
PROVIDERS: ATTEND Internal Medicine Cardiovascular Disease
DX: I27.21 Secondary pulmonary arterial hypertension (principal); I10 Essential (primary) hypertension; D64.9 Anemia, unspecified
CPT/HCPCS: 96372; G0463; J3420

== ENCOUNTER → 2024-03-10 | Outpatient (CLI) | payer MEDICAID ==
[~2024-03-10] MED LIST changes: -BENA40TA70 PO; +BENA40TA71 PO; +POTA-36 PO; -POTA10TA51 PO
[2024-03-10 12:10] VITALS: BP 106/59; PULSE 76; RESP 20; O2SAT 90
[2024-03-10] MEDS: CYANOCOBALAMIN (B-12) 1000 MCG/1 ML VIAL ONE (12:12)
[2024-03-10] MEDS: CYANOCOBALAMIN (B-12) 1000 MCG/1 ML VIAL IM ONE (12:30)
[2024-03-10 12:52] VITALS: BP 96/58; PULSE 72; RESP 20; O2SAT 93
== END | disposition home or self-care (01) ==
LOC: CHF HDHVI 12:07
PROVIDERS: ATTEND Internal Medicine Cardiovascular Disease
DX: D64.9 Anemia, unspecified (principal); I27.0 Primary pulmonary hypertension
CPT/HCPCS: 96372; G0463; J3420

== ENCOUNTER → 2024-07-26 | Outpatient (CLI) | payer MEDICAID ==
[2024-07-26] MEDS: CYANOCOBALAMIN (B-12) 1000 MCG/1 ML VIAL ONE (12:36)
[2024-07-26 13:00] VITALS: BP 98/60; PULSE 77; RESP 16; O2SAT 96
[2024-07-26] MEDS: CYANOCOBALAMIN (B-12) 1000 MCG/1 ML VIAL IM ONE (13:00)
[2024-07-26 13:20] VITALS: BP 100/54; PULSE 72; RESP 16; O2SAT 93
== END | disposition home or self-care (01) ==
LOC: CHF HDHVI 12:28
PROVIDERS: ATTEND Internal Medicine Cardiovascular Disease
DX: D64.9 Anemia, unspecified (principal); I11.0 Hypertensive heart disease with heart failure; I50.33 Acute on chronic diastolic (congestive) heart failure
CPT/HCPCS: 96372; G0463; J3420

== ENCOUNTER → 2024-08-31 | Outpatient (CLI) | payer MEDICAID ==
[2024-08-31 12:52] VITALS: BP 106/56; PULSE 79; RESP 18; O2SAT 93
[2024-08-31] MEDS: CYANOCOBALAMIN (B-12) 1000 MCG/1 ML VIAL IM ONE (12:52)
[2024-08-31 13:12] VITALS: BP 111/72; PULSE 67; RESP 16; O2SAT 93
[2024-08-31] MEDS: CYANOCOBALAMIN (B-12) 1000 MCG/1 ML VIAL ONE (13:43)
== END | disposition home or self-care (01) ==
LOC: CHF HDHVI 12:40
PROVIDERS: ATTEND Internal Medicine Cardiovascular Disease
DX: I10 Essential (primary) hypertension (principal); D64.9 Anemia, unspecified
CPT/HCPCS: 96372; G0463; J3420

== ENCOUNTER → 2024-10-04 | Outpatient (CLI) | payer MEDICAID ==
[2024-10-04] MEDS: CYANOCOBALAMIN (B-12) 1000 MCG/1 ML VIAL ONE (12:51)
[2024-10-04 12:52] VITALS: BP 97/61; PULSE 68; RESP 16; O2SAT 96
[2024-10-04] MEDS: CYANOCOBALAMIN (B-12) 1000 MCG/1 ML VIAL IM ONE (12:52)
[2024-10-04 13:23] VITALS: BP 99/65; PULSE 78; RESP 16; O2SAT 96
== END | disposition home or self-care (01) ==
LOC: CHF HDHVI 12:42
PROVIDERS: ATTEND Internal Medicine Cardiovascular Disease
DX: D64.9 Anemia, unspecified (principal); I27.20 Pulmonary hypertension, unspecified; I10 Essential (primary) hypertension
CPT/HCPCS: 96372; G0463; J3420

== ENCOUNTER → 2024-11-04 | Outpatient (CLI) | payer MEDICAID ==
[2024-11-04 12:56] VITALS: BP 107/63; PULSE 81; RESP 18; O2SAT 98
[2024-11-04 13:17] VITALS: BP 114/80; PULSE 74; RESP 18; O2SAT 98
[2024-11-04] MEDS: CYANOCOBALAMIN (B-12) 1000 MCG/1 ML VIAL IM ONE (13:17)
[2024-11-04] MEDS: CYANOCOBALAMIN (B-12) 1000 MCG/1 ML VIAL ONE (13:18)
== END | disposition home or self-care (01) ==
LOC: CHF HDHVI 12:39
PROVIDERS: ATTEND Internal Medicine Cardiovascular Disease
DX: D64.9 Anemia, unspecified (principal); I27.0 Primary pulmonary hypertension
CPT/HCPCS: 96372; G0463; J3420

== ENCOUNTER → 2025-01-03 | Outpatient (CLI) | payer MEDICAID ==
[2025-01-03] MEDS: CYANOCOBALAMIN (B-12) 1000 MCG/1 ML VIAL ONE (11:48)
[2025-01-03] MEDS: BACITRACIN TOP OINT 1 UD PKG TOP ONE ×2 (12:09→13:06)
[2025-01-03 12:48] VITALS: BP 110/64; PULSE 78; RESP 20; O2SAT 94
[2025-01-03] MEDS: MEROPENEM 1GM IVPB 50 ML IV ONE ×2 (12:52→13:53)
[2025-01-03] MEDS: KETOROLAC TROMETH 60MG/2ML VIAL ONE (12:56)
[2025-01-03] MEDS: CYANOCOBALAMIN (B-12) 1000 MCG/1 ML VIAL IM ONE (13:02)
[2025-01-03] MEDS: KETOROLAC TROMETH 60MG/2ML VIAL IM ONE (13:56)
[2025-01-03 15:15] VITALS: BP 107/62; PULSE 71; RESP 20; O2SAT 94
== END | disposition home or self-care (01) ==
LOC: CHF HDHVI 12:37
PROVIDERS: ATTEND Internal Medicine Cardiovascular Disease
DX: D64.9 Anemia, unspecified (principal); I13.0 Hypertensive heart and chronic kidney disease with heart failure and stage 1 through stage 4 chronic kidney disease, or unspecified chronic kidney disease; E11.22 Type 2 diabetes mellitus with diabetic chronic kidney disease; I50.33 Acute on chronic diastolic (congestive) heart failure; N18.2 Chronic kidney disease, stage 2 (mild); E11.42 Type 2 diabetes mellitus with diabetic polyneuropathy; E11.51 Type 2 diabetes mellitus with diabetic peripheral angiopathy without gangrene; E78.00 Pure hypercholesterolemia, unspecified; D51.9 Vitamin B12 deficiency anemia, unspecified; J44.9 Chronic obstructive pulmonary disease, unspecified; E03.9 Hypothyroidism, unspecified; L02.211 Cutaneous abscess of abdominal wall; Z87.891 Personal history of nicotine dependence
CPT/HCPCS: 96365; 96372; G0463; J1885; J2185; J3420

== ENCOUNTER → 2025-01-06 | Outpatient (CLI) | payer MEDICAID ==
[2025-01-06] MEDS: MEROPENEM 1GM IVPB 50 ML IV ONE ×2 (11:41→13:04)
[2025-01-06 12:42] VITALS: BP 113/69; PULSE 84; RESP 18; O2SAT 96
[2025-01-06 14:08] VITALS: BP 107/67; PULSE 82; RESP 18; O2SAT 96
== END | disposition home or self-care (01) ==
LOC: Rad HDHVI 12:37
PROVIDERS: ATTEND Internal Medicine Cardiovascular Disease
DX: L02.211 Cutaneous abscess of abdominal wall (principal); I13.0 Hypertensive heart and chronic kidney disease with heart failure and stage 1 through stage 4 chronic kidney disease, or unspecified chronic kidney disease; E11.22 Type 2 diabetes mellitus with diabetic chronic kidney disease; N18.2 Chronic kidney disease, stage 2 (mild); I50.9 Heart failure, unspecified; J44.9 Chronic obstructive pulmonary disease, unspecified; E03.9 Hypothyroidism, unspecified; E11.40 Type 2 diabetes mellitus with diabetic neuropathy, unspecified; Z87.891 Personal history of nicotine dependence
CPT/HCPCS: 93306; 96365; G0463; J2185

== ENCOUNTER → 2025-01-31 | Outpatient (CLI) | payer MEDICAID ==
[2025-01-31 13:35] VITALS: BP 103/62; PULSE 76; RESP 16; O2SAT 94
[2025-01-31] MEDS: CYANOCOBALAMIN (B-12) 1000 MCG/1 ML VIAL ONE (13:50)
[2025-01-31] MEDS: CYANOCOBALAMIN (B-12) 1000 MCG/1 ML VIAL IM ONE (13:53)
[2025-01-31 14:11] VITALS: BP 99/66; PULSE 75; RESP 16; O2SAT 94
== END | disposition home or self-care (01) ==
LOC: CHF HDHVI 13:32
PROVIDERS: ATTEND Internal Medicine Cardiovascular Disease
DX: I27.21 Secondary pulmonary arterial hypertension (principal); D51.9 Vitamin B12 deficiency anemia, unspecified; D64.9 Anemia, unspecified; I13.0 Hypertensive heart and chronic kidney disease with heart failure and stage 1 through stage 4 chronic kidney disease, or unspecified chronic kidney disease; I50.33 Acute on chronic diastolic (congestive) heart failure; N18.2 Chronic kidney disease, stage 2 (mild); E11.22 Type 2 diabetes mellitus with diabetic chronic kidney disease; E11.42 Type 2 diabetes mellitus with diabetic polyneuropathy; E11.51 Type 2 diabetes mellitus with diabetic peripheral angiopathy without gangrene; E03.9 Hypothyroidism, unspecified; E78.00 Pure hypercholesterolemia, unspecified; F33.0 Major depressive disorder, recurrent, mild; Z87.891 Personal history of nicotine dependence; Z79.899 Other long term (current) drug therapy
CPT/HCPCS: 96372; G0463; J3420

== ENCOUNTER → 2025-03-07 | Outpatient (CLI) | payer MEDICAID ==
[2025-03-07 13:40] VITALS: BP 107/72; PULSE 84; RESP 16; O2SAT 91
[2025-03-07] MEDS: CYANOCOBALAMIN (B-12) 1000 MCG/1 ML VIAL IM ONE (13:56)
[2025-03-07 14:00] VITALS: BP 110/64; PULSE 76; RESP 16; O2SAT 91
[2025-03-07] MEDS: CYANOCOBALAMIN (B-12) 1000 MCG/1 ML VIAL ONE (14:03)
== END | disposition home or self-care (01) ==
LOC: CHF HDHVI 13:15
PROVIDERS: ATTEND Internal Medicine Cardiovascular Disease
DX: I27.21 Secondary pulmonary arterial hypertension (principal); D51.9 Vitamin B12 deficiency anemia, unspecified; I13.0 Hypertensive heart and chronic kidney disease with heart failure and stage 1 through stage 4 chronic kidney disease, or unspecified chronic kidney disease; E11.22 Type 2 diabetes mellitus with diabetic chronic kidney disease; I50.33 Acute on chronic diastolic (congestive) heart failure; N18.2 Chronic kidney disease, stage 2 (mild); E11.51 Type 2 diabetes mellitus with diabetic peripheral angiopathy without gangrene; E11.42 Type 2 diabetes mellitus with diabetic polyneuropathy; E78.00 Pure hypercholesterolemia, unspecified; E03.9 Hypothyroidism, unspecified; Z79.899 Other long term (current) drug therapy; Z87.891 Personal history of nicotine dependence
CPT/HCPCS: 96372; G0463; J3420

== ENCOUNTER 2025-04-11 13:11 | Outpatient (CLI) | payer MEDICAID ==
[2025-04-11] MEDS: CYANOCOBALAMIN (B-12) 1000 MCG/1 ML VIAL ONE (13:23)
[2025-04-11 13:40] VITALS: BP 99/57; PULSE 85; RESP 16; O2SAT 92
[2025-04-11] MEDS: CYANOCOBALAMIN (B-12) 1000 MCG/1 ML VIAL IM ONE (13:53)
[2025-04-11 14:03] VITALS: BP 104/60; PULSE 80; RESP 16; O2SAT 93
== END 2025-04-11 17:00 | disposition home or self-care (01) ==
LOC: CHF HDHVI 13:11
PROVIDERS: ATTEND Internal Medicine Cardiovascular Disease
DX: D51.9 Vitamin B12 deficiency anemia, unspecified (principal); I13.0 Hypertensive heart and chronic kidney disease with heart failure and stage 1 through stage 4 chronic kidney disease, or unspecified chronic kidney disease; E11.22 Type 2 diabetes mellitus with diabetic chronic kidney disease; N18.2 Chronic kidney disease, stage 2 (mild); I50.33 Acute on chronic diastolic (congestive) heart failure; E03.9 Hypothyroidism, unspecified; E78.00 Pure hypercholesterolemia, unspecified; E11.42 Type 2 diabetes mellitus with diabetic polyneuropathy; E11.51 Type 2 diabetes mellitus with diabetic peripheral angiopathy without gangrene; Z79.899 Other long term (current) drug therapy; Z87.891 Personal history of nicotine dependence
CPT/HCPCS: 96372; G0463; J3420

== ENCOUNTER 2025-05-09 12:46 | Outpatient (CLI) | payer MEDICAID ==
[2025-05-09 12:57] VITALS: BP 99/56; PULSE 82; RESP 20; O2SAT 98
[2025-05-09] MEDS: CYANOCOBALAMIN (B-12) 1000 MCG/1 ML VIAL ONE (13:04)
[2025-05-09] MEDS: CYANOCOBALAMIN (B-12) 1000 MCG/1 ML VIAL IM ONE (13:14)
[2025-05-09 13:25] VITALS: BP 102/61; PULSE 77; RESP 16; O2SAT 98
== END 2025-05-09 17:00 | disposition home or self-care (01) ==
LOC: CHF HDHVI 12:46
PROVIDERS: ATTEND Internal Medicine Cardiovascular Disease
DX: D51.9 Vitamin B12 deficiency anemia, unspecified (principal); I27.21 Secondary pulmonary arterial hypertension; I13.0 Hypertensive heart and chronic kidney disease with heart failure and stage 1 through stage 4 chronic kidney disease, or unspecified chronic kidney disease; E11.22 Type 2 diabetes mellitus with diabetic chronic kidney disease; I50.23 Acute on chronic systolic (congestive) heart failure; N18.2 Chronic kidney disease, stage 2 (mild); E11.51 Type 2 diabetes mellitus with diabetic peripheral angiopathy without gangrene; E11.42 Type 2 diabetes mellitus with diabetic polyneuropathy; E03.9 Hypothyroidism, unspecified; E78.00 Pure hypercholesterolemia, unspecified; Z79.899 Other long term (current) drug therapy; Z87.891 Personal history of nicotine dependence
CPT/HCPCS: 96372; G0463; J3420

== ENCOUNTER 2025-06-06 13:35 | Outpatient (CLI) | payer MEDICAID ==
[2025-06-06 13:42] VITALS: BP 91/54; PULSE 90; RESP 20; O2SAT 91
[2025-06-06] MEDS: CYANOCOBALAMIN (B-12) 1000 MCG/1 ML VIAL IM ONE (13:48)
[2025-06-06] MEDS: CYANOCOBALAMIN (B-12) 1000 MCG/1 ML VIAL ONE (13:48)
[2025-06-06 14:16] VITALS: BP 94/60; PULSE 86; RESP 20; O2SAT 93
== END 2025-06-06 17:00 | disposition home or self-care (01) ==
LOC: CHF HDHVI 13:35
PROVIDERS: ATTEND Internal Medicine Cardiovascular Disease
DX: D51.9 Vitamin B12 deficiency anemia, unspecified (principal); I27.21 Secondary pulmonary arterial hypertension; I13.0 Hypertensive heart and chronic kidney disease with heart failure and stage 1 through stage 4 chronic kidney disease, or unspecified chronic kidney disease; E11.22 Type 2 diabetes mellitus with diabetic chronic kidney disease; I50.23 Acute on chronic systolic (congestive) heart failure; N18.2 Chronic kidney disease, stage 2 (mild); E11.51 Type 2 diabetes mellitus with diabetic peripheral angiopathy without gangrene; E11.42 Type 2 diabetes mellitus with diabetic polyneuropathy; E78.00 Pure hypercholesterolemia, unspecified; E03.9 Hypothyroidism, unspecified; Z79.899 Other long term (current) drug therapy; Z87.891 Personal history of nicotine dependence
CPT/HCPCS: 96372; G0463; J3420

== ENCOUNTER 2025-07-11 13:32 | Outpatient (CLI) | payer MEDICAID ==
[2025-07-11 13:37] VITALS: BP 99/64; PULSE 94; RESP 18; O2SAT 90
[2025-07-11] MEDS: CYANOCOBALAMIN (B-12) 1000 MCG/1 ML VIAL IM ONE (13:48)
[2025-07-11 14:09] VITALS: BP 101/62; PULSE 91; RESP 16; O2SAT 90
[2025-07-11] MEDS: CYANOCOBALAMIN (B-12) 1000 MCG/1 ML VIAL ONE (15:01)
== END 2025-07-11 17:00 | disposition home or self-care (01) ==
LOC: CHF HDHVI 13:32
PROVIDERS: ATTEND Internal Medicine Cardiovascular Disease
DX: I27.21 Secondary pulmonary arterial hypertension (principal); D51.9 Vitamin B12 deficiency anemia, unspecified; I13.0 Hypertensive heart and chronic kidney disease with heart failure and stage 1 through stage 4 chronic kidney disease, or unspecified chronic kidney disease; E11.22 Type 2 diabetes mellitus with diabetic chronic kidney disease; I50.23 Acute on chronic systolic (congestive) heart failure; N18.2 Chronic kidney disease, stage 2 (mild); E11.42 Type 2 diabetes mellitus with diabetic polyneuropathy; E11.51 Type 2 diabetes mellitus with diabetic peripheral angiopathy without gangrene; E03.9 Hypothyroidism, unspecified; F33.0 Major depressive disorder, recurrent, mild; I25.10 Atherosclerotic heart disease of native coronary artery without angina pectoris; K21.9 Gastro-esophageal reflux disease without esophagitis; E78.00 Pure hypercholesterolemia, unspecified; Z79.899 Other long term (current) drug therapy; Z87.891 Personal history of nicotine dependence
CPT/HCPCS: 96372; G0463; J3420

== ENCOUNTER 2025-08-08 13:42 | Outpatient (CLI) | payer MEDICAID ==
[2025-08-08 13:40] VITALS: BP 103/61; PULSE 89; RESP 16; O2SAT 93
[2025-08-08] MEDS: CYANOCOBALAMIN (B-12) 1000 MCG/1 ML VIAL IM ONE (14:02)
[2025-08-08 14:35] VITALS: BP 108/61; PULSE 87; RESP 16; O2SAT 93
[2025-08-08] MEDS: CYANOCOBALAMIN (B-12) 1000 MCG/1 ML VIAL ONE (16:06)
== END 2025-08-09 17:00 | disposition home or self-care (01) ==
LOC: CHF HDHVI 13:42
PROVIDERS: ATTEND Internal Medicine Cardiovascular Disease
DX: I27.21 Secondary pulmonary arterial hypertension (principal); D51.9 Vitamin B12 deficiency anemia, unspecified; I13.0 Hypertensive heart and chronic kidney disease with heart failure and stage 1 through stage 4 chronic kidney disease, or unspecified chronic kidney disease; E11.22 Type 2 diabetes mellitus with diabetic chronic kidney disease; I50.23 Acute on chronic systolic (congestive) heart failure; N18.2 Chronic kidney disease, stage 2 (mild); E11.42 Type 2 diabetes mellitus with diabetic polyneuropathy; E11.51 Type 2 diabetes mellitus with diabetic peripheral angiopathy without gangrene; I25.10 Atherosclerotic heart disease of native coronary artery without angina pectoris; K21.9 Gastro-esophageal reflux disease without esophagitis; E03.9 Hypothyroidism, unspecified; F33.0 Major depressive disorder, recurrent, mild; E78.00 Pure hypercholesterolemia, unspecified; J44.9 Chronic obstructive pulmonary disease, unspecified; Z79.899 Other long term (current) drug therapy; Z87.891 Personal history of nicotine dependence
CPT/HCPCS: 96372; G0463; J3420

== ENCOUNTER 2025-08-24 13:11 | Outpatient (CLI) | payer MEDICAID ==
--- NOTE | 2025-08-29 12:59 | DVHSR ---
APPROVED REPORT EXAM: Two-dimensional and M-mode echocardiogram with Doppler and color Doppler. DIMENSIONS LVDd 4.1 (3.8-5.7cm) LA (2D) 3.5 (1.9-4.0cm) Aortic Root (2.0-3.7cm) LVDs 2.6 (2.5-4.0cm) LA (MM) (1.9-4.0cm) Aortic Cusp Exc (1.5-2.0cm) EF (%) 60.0 (55-70%) Rt. Atrium 4.4 (1.9-4.0cm) Asc. Aorta cm IVSd 1.3 (0.7-1.1cm) RV (D) (1.8-2.4cm) PWd 1.3 (0.7-1.1cm) Mitral Valve Mitral Mitral Stenosis E wave 0.72m/s MV Mean GR. mmHg A wave 0.98m/s MV Peak GR. mmHg E/A ratio 0.7 2D MVA cm2 DECEL Time 402ms PRESS 1/2 Time ms Aortic Valve Aortic Valve Aortic Stenosis V1 0.75m/s AO Mean GR. 4mmHg V2 1.41m/s AO Peak GR. 8mmHg LVOT Diameter 2.2 (1.8-2.4cm) Doppler DESTIN 2.02cm2 LEFT VENTRICLE The left ventricle is normal size. There is borderline left ventricular hypertrophy. The left ventricle is normal in structure and function. The Ejection Fraction is within normal limits. RIGHT VENTRICLE The right ventricle is normal size. ATRIA The left atrial size is normal. The right atrium is enlarged. The interatrial septum is intact with no evidence for an atrial septal defect. MITRAL VALVE The mitral valve is normal in structure and function. There is no mitral valve regurgitation noted. PULMONIC VALVE The pulmonic valve is not well visualized. TRICUSPID VALVE The tricuspid valve is grossly normal. AORTIC VALVE The aortic valve opens well. No aortic regurgitation is present. GREAT VESSELS The aortic root is normal size. PERICARDIAL EFFUSION There is no pericardial effusion. Conclusion EF >55% CONC LVH KIMANI
== END 2025-08-24 17:00 | disposition home or self-care (01) ==
LOC: Rad HDHVI 13:11
PROVIDERS: ATTEND Internal Medicine Cardiovascular Disease
DX: I50.32 Chronic diastolic (congestive) heart failure (principal); E78.5 Hyperlipidemia, unspecified
CPT/HCPCS: 93306

== ENCOUNTER 2025-10-12 12:50 | Outpatient (CLI) | payer MEDICAID ==
[2025-10-12 13:18] VITALS: BP 105/66; PULSE 81; RESP 16; O2SAT 93
[2025-10-12] MEDS: CYANOCOBALAMIN (B-12) 1000 MCG/1 ML VIAL IM ONE (13:33)
[2025-10-12 14:03] VITALS: BP 103/56; PULSE 90; RESP 16; O2SAT 95
== END 2025-10-12 17:00 | disposition home or self-care (01) ==
LOC: CHF HDHVI 12:50
PROVIDERS: ATTEND Internal Medicine Cardiovascular Disease
DX: D51.9 Vitamin B12 deficiency anemia, unspecified (principal); I27.21 Secondary pulmonary arterial hypertension; I13.0 Hypertensive heart and chronic kidney disease with heart failure and stage 1 through stage 4 chronic kidney disease, or unspecified chronic kidney disease; E11.22 Type 2 diabetes mellitus with diabetic chronic kidney disease; I50.23 Acute on chronic systolic (congestive) heart failure; N18.2 Chronic kidney disease, stage 2 (mild); E11.42 Type 2 diabetes mellitus with diabetic polyneuropathy; E11.51 Type 2 diabetes mellitus with diabetic peripheral angiopathy without gangrene; I25.10 Atherosclerotic heart disease of native coronary artery without angina pectoris; J44.9 Chronic obstructive pulmonary disease, unspecified; K21.9 Gastro-esophageal reflux disease without esophagitis; E78.00 Pure hypercholesterolemia, unspecified; F33.0 Major depressive disorder, recurrent, mild; E03.9 Hypothyroidism, unspecified; Z79.899 Other long term (current) drug therapy; Z87.891 Personal history of nicotine dependence
CPT/HCPCS: 96372; G0463; J3420